=== PATIENT | male | born 1970 | race Caucasian/White ===

== ENCOUNTER → 2020-02-06 | Outpatient (CLI) | payer BC ==
[2020-02-06 16:46] LABS: Alcohol, Urine < 3.0 mg/dL (0-5); Amphetamine Screen, Urine NEGATIVE (NEGATIVE); Barbiturate Scree,Urine NEGATIVE (NEGATIVE); Benzodiazephine Screen, Urine NEGATIVE (NEGATIVE); Cannabinoid Screen, Urine POSITIVE (NEGATIVE); Cocaine Screen, Urine NEGATIVE (NEGATIVE); Opiate Scree,Urine NEGATIVE (NEGATIVE); Phencyclidine Screen, Urine NEGATIVE (NEGATIVE)
== END | disposition home or self-care (01) ==
LOC: LAB 14:35
PROVIDERS: ATTEND Psychiatry & Neurology Neurology
DX: G89.29 Other chronic pain (principal)
CPT/HCPCS: 80307

== ENCOUNTER 2020-04-21 06:13 | Day surgery (SDC) | payer BC ==
[2020-04-16 09:23] LABS: Urine WBC None Seen /hpf (0 - 3)
[2020-04-16 09:30] LABS: Basophils # (auto) 0 10 ^3/uL (0-0.2); Basophils % (auto) 0.4 % (0.0-2.0); Eosinophils # (auto) 0.2 10 ^3/uL (0-0.8); Eosinophils % (auto) 3.7 % (0.0-7.0); Hematocrit 50.5 % (41.0-53.0); Hemoglobin 16.9 g/dL (13.5-17.5); Lymphocytes # (auto) 2.1 10 ^3/uL (0.4-5.4); Lymphocytes % (auto) 32.6 % (10.0-50.0); Mean Corpuscular Hemoglobin 31.4 pg (28.0-32.0); Mean Corpuscular Hgb Conc. 33.5 g/dL (32.0-36.0); Mean Corpuscular Volume 93.6 fL (80.0-100.0); Monocytes # (auto) 0.5 10 ^3/uL (0-1.3); Monocytes % (auto) 7.8 % (0.0-12.0); Neutrophils # (auto) 3.6 10 ^3/uL (1.6-8.6); Neutrophils % (auto) 55.5 % (37.0-80.0); Nucleated Red Blood Cells % 0.1 %; Platelet Count (auto) 187 10^3/uL (140-450); Red Blood Cells 5.39 10^6/uL (4.5-5.90); Red Cell Distribution Width 13.8 % (11.8-14.3); White Blood Cell 6.5 10^3/uL (4.4-10.8)
[2020-04-16 09:33] LABS: Urine Bacteria NONE SEEN /hpf (None Seen); Urine Blood Negative /uL (Negative); Urine Specific Gravity 1.012 (1.001-1.035)
[2020-04-16 09:42] LABS: INR 1.11 (0.9-1.15); Partial Thromboplastin Time 28.6 sec (23.64-32.05)
[2020-04-16 09:45] LABS: Potassium 3.9 mmol/L (3.5-5.1)
[2020-04-16 09:58] LABS: Albumin 4.4 g/dL (3.4-5.0); BUN/Creatinine Ratio 15.3; Bilirubin, Total 1.3 mg/dL (0.2-1.0); Calcium 9.4 mg/dL (8.5-10.1)
[~2020-04-21] VITALS: Ht 177.8 cm; Wt 105.2 kg
[~2020-04-21 06:13] MED LIST: ALPR0.5T PO; LISI-646 PO; LISI10TA6 PO
[2020-04-21] MEDS ORDERED: ceFAZolin 1GM/50ML 50 ML IV ONE (07:15)
[2020-04-21] MEDS ORDERED: LIDOCAINE 1% (LOCAL ANESTH.) PF 5ml SDV ONE (07:19)
[2020-04-21] MEDS ORDERED: SUCCINYLCHOLINE CHLORIDE 20 MG/ML 10ML VIAL IV ONE (07:19)
[2020-04-21] MEDS ORDERED: MIDAZOLAM HCL 1MG/1ML-2 ML VIAL ONE (07:21)
[2020-04-21] MEDS ORDERED: METOCLOPRAMIDE HCL 5MG/ml INJ 2ml VIAL ONE (07:21)
[2020-04-21] MEDS ORDERED: BUPIVACAINE 0.25% INJ 50ML VIAL ONE (07:22)
[2020-04-21] MEDS ORDERED: ROCURONIUM 10MG/ML 10ML VIAL IV ONE (07:26)
[2020-04-21] MEDS ORDERED: PROPOFOL 10 MG/ML 20 ML IV ONE (07:26)
[2020-04-21] MEDS ORDERED: fentaNYL CITRATE 100 MCG/2 ML VL ONE (07:39)
[2020-04-21] MEDS ORDERED: ONDANSETRON HCL 4 MG/2 ML VIAL IV PRN (08:00)
[2020-04-21] MEDS ORDERED: HYDROmorphone HCL 2 MG/ML VL IV PRN (08:00)
[2020-04-21] MEDS ORDERED: NALOXONE HCL 0.4 MG/ML VIAL IV PRN (08:00)
[2020-04-21] MEDS ORDERED: POVIDONE IODINE 10 % TOPICAL OINT 30GM TOP ONE (08:13)
[2020-04-21] MEDS ORDERED: GLYCOPYRROLATE 0.2 MG/ML 1ML VIAL ONE (08:16)
[2020-04-21] MEDS ORDERED: NEOSTIGMINE 1 MG/ML INJ (10mg/10ML VIAL) ONE (08:16)
[2020-04-21] MEDS ORDERED: KETOROLAC TROMETH 30 MG/ML 1ML VIAL ONE (08:16)
[2020-04-21] MEDS: HYDROmorphone HCL 2 MG/ML VL IV PRN ×4 (08:34→09:15)
[2020-04-21 09:26] VITALS: BP 135/95
== END 2020-04-21 09:40 | disposition home or self-care (01) ==
LOC: SUR 06:13
PROVIDERS: ATTEND Surgery
DX: K42.9 Umbilical hernia without obstruction or gangrene (principal); I10 Essential (primary) hypertension; E11.9 Type 2 diabetes mellitus without complications; M19.90 Unspecified osteoarthritis, unspecified site; Z11.59 Encounter for screening for other viral diseases; Z98.890 Other specified postprocedural states
CPT/HCPCS: 36415; 49585; 80053; 81001; 85025; 85610; 85730; 88302; J0330; J0690; J1170; J1885; J2250; J2704; J2765; J3010; J3490; U0003

== ENCOUNTER → 2020-06-02 | Outpatient (CLI) | payer BC ==
[2020-06-02 08:42] LABS: Uric Acid 6.4 mg/dL (3.5-7.2)
== END | disposition home or self-care (01) ==
LOC: LAB 07:58
PROVIDERS: ATTEND Internal Medicine
DX: I10 Essential (primary) hypertension (principal); G43.009 Migraine without aura, not intractable, without status migrainosus; R73.9 Hyperglycemia, unspecified
CPT/HCPCS: 36415; 80061; 83036; 84443; 84550

== ENCOUNTER → 2020-06-15 | Outpatient (CLI) | payer OTHER ==
[~2020-06-15] MED LIST changes: +LISI-648 PO; -LISI10TA6 PO
== END | disposition home or self-care (01) ==
LOC: LAB 16:21
PROVIDERS: ATTEND Physician Assistant
DX: Z20.828 Contact with and (suspected) exposure to other viral communicable diseases (principal)

== ENCOUNTER → 2021-01-26 | Outpatient (CLI) | payer BC ==
[2021-01-26 11:38] LABS: Alcohol, Urine < 3.0 mg/dL (0-10); Amphetamine Screen, Urine NEGATIVE (NEGATIVE); Barbiturate Scree,Urine NEGATIVE (NEGATIVE); Benzodiazephine Screen, Urine POSITIVE (NEGATIVE); Cannabinoid Screen, Urine POSITIVE (NEGATIVE); Cocaine Screen, Urine NEGATIVE (NEGATIVE); Opiate Scree,Urine NEGATIVE (NEGATIVE); Phencyclidine Screen, Urine NEGATIVE (NEGATIVE)
== END | disposition home or self-care (01) ==
LOC: LAB 10:54
PROVIDERS: ATTEND Psychiatry & Neurology Neurology
DX: G89.4 Chronic pain syndrome (principal)
CPT/HCPCS: 80307

== ENCOUNTER → 2021-01-26 | Outpatient (CLI) | payer BC | END | disposition home or self-care (01) | LOC: XYW 10:42 | PROVIDERS: ATTEND Psychiatry & Neurology Neurology | DX: S46.811A Strain of other muscles, fascia and tendons at shoulder and upper arm level, right arm, initial encounter (principal); M65.811 Other synovitis and tenosynovitis, right shoulder; M19.011 Primary osteoarthritis, right shoulder; M85.611 Other cyst of bone, right shoulder; M25.511 Pain in right shoulder; X58.XXXA Exposure to other specified factors, initial encounter; Y93.89 Activity, other specified; Y92.89 Other specified places as the place of occurrence of the external cause; Y99.8 Other external cause status | CPT/HCPCS: 73221 ==

== ENCOUNTER → 2022-08-31 | Outpatient (CLI) | payer BC ==
[~2022-08-31] MED LIST changes: -LISI-646 PO; -LISI-648 PO; +LISI-716 PO; +LISI20TA28 PO
[2022-08-31 07:47] LABS: Basophils # (auto) 0.1 10 ^3/uL (0-0.2); Basophils % (auto) 1.4 % (0.0-2.0); Eosinophils # (auto) 0.4 10 ^3/uL (0-0.8); Eosinophils % (auto) 5.5 % (0.0-7.0); Hematocrit 53.1 % (41.0-53.0); Hemoglobin 17.3 g/dL (13.5-17.5); Lymphocytes # (auto) 1.6 10 ^3/uL (0.4-5.4); Lymphocytes % (auto) 22.7 % (10.0-50.0); Mean Corpuscular Hemoglobin 31.2 pg (28.0-32.0); Mean Corpuscular Hgb Conc. 32.6 g/dL (32.0-36.0); Mean Corpuscular Volume 95.9 fL (80.0-100.0); Monocytes # (auto) 0.6 10 ^3/uL (0-1.3); Monocytes % (auto) 8.9 % (0.0-12.0); Neutrophils # (auto) 4.4 10 ^3/uL (1.6-8.6); Neutrophils % (auto) 61.5 % (37.0-80.0); Nucleated Red Blood Cells % 0.1 %; Red Blood Cells 5.54 10^6/uL (4.5-5.90); White Blood Cell 7.1 10^3/uL (4.4-10.8)
[2022-08-31 07:55] LABS: Urine Bacteria NONE SEEN /hpf (None Seen); Urine Blood Negative /uL (Negative); Urine Specific Gravity 1.011 (1.001-1.035); Urine WBC <1 /hpf (0 - 3)
[2022-08-31 09:01] LABS: Potassium 4.2 mmol/L (3.5-5.1)
[2022-08-31 09:12] LABS: BUN/Creatinine Ratio 17.4; Bilirubin, Total 3.2 mg/dL (0.2-1.0); Calcium 9.7 mg/dL (8.5-10.1); Total Protein 7.5 g/dL (6.4-8.2)
== END | disposition home or self-care (01) ==
LOC: LAB 07:31
PROVIDERS: ATTEND Internal Medicine
DX: I10 Essential (primary) hypertension (principal); F17.200 Nicotine dependence, unspecified, uncomplicated; R73.9 Hyperglycemia, unspecified
CPT/HCPCS: 36415; 80053; 80061; 81001; 84153; 85025

== ENCOUNTER 2023-03-29 11:07 | Inpatient (IN) | payer BC ==
[~2023-03-29] VITALS: Ht 167.6 cm; Wt 101.5 kg
[2023-03-29] VITALS (13 sets, daily range): BP systolic 86–112; BP diastolic 54–78
[2023-03-29] MEDS ORDERED: FUROSEMIDE 40 MG/4 ML VIAL IV ONE ×2 (11:30→12:15)
[2023-03-29 11:49] LABS: Basophils # (auto) 0.1 10 ^3/uL (0-0.2); Basophils % (auto) 1.1 % (0.0-2.0); Eosinophils # (auto) 0.1 10 ^3/uL (0-0.8); Eosinophils % (auto) 1.4 % (0.0-7.0); Hematocrit 46.2 % (41.0-53.0); Hemoglobin 15.6 g/dL (13.5-17.5); Lymphocytes # (auto) 1.7 10 ^3/uL (0.4-5.4); Lymphocytes % (auto) 20.4 % (10.0-50.0); Mean Corpuscular Hgb Conc. 33.8 g/dL (32.0-36.0); Mean Corpuscular Volume 100.8 fL (80.0-100.0); Monocytes # (auto) 0.6 10 ^3/uL (0-1.3); Monocytes % (auto) 6.9 % (0.0-12.0); Neutrophils # (auto) 5.7 10 ^3/uL (1.6-8.6); Neutrophils % (auto) 70.2 % (37.0-80.0); Nucleated Red Blood Cells % 0.2 %; Red Blood Cells 4.58 10^6/uL (4.5-5.90); Red Cell Distribution Width 13.7 % (11.8-14.3); White Blood Cell 8.2 10^3/uL (4.4-10.8)
[2023-03-29] MEDS ORDERED: ADENOSINE 6 MG/2 ML INJ IV ONE (12:00)
[2023-03-29] MEDS ORDERED: LABETALOL HCL 5 MG/ML 4ML SYRINGE IV ONE (12:00)
[2023-03-29] MEDS ORDERED: MIDAZOLAM HCL 5 MG/ML-1ML VIAL ONE (12:07)
[2023-03-29] MEDS ORDERED: METOPROLOL SUCCINATE XL 50 MG TAB PO ONE ×2 (12:07→12:15)
[2023-03-29] MEDS ORDERED: MIDAZOLAM HCL 2MG/2ML 2ml VIAL (1mg/ml) IV ONE (12:15)
[2023-03-29] MEDS ORDERED: AMIODARONE HCL 150 MG in D5W 5% 100 ML IV ONE (12:15)
[2023-03-29] MEDS ORDERED: FUROSEMIDE 40 MG/4 ML VIAL ONE (12:16)
[2023-03-29] MEDS ORDERED: AMIODARONE 450mg/250ml AE 250 ML IV SCH ×2 (12:30→18:30)
[2023-03-29] MEDS ORDERED: LORazepam 2MG/ML-1ML VIAL IV ONE (12:45)
[2023-03-29] MEDS ORDERED: NITROGLYCERIN 0.4 MG SL TAB SL PRN (13:30)
[2023-03-29 14:44] LABS: INR 1.31 (0.9-1.15); Partial Thromboplastin Time 30.8 sec (24.6-33.4)
[2023-03-29] MEDS ORDERED: THIAMINE 100mg/ml INJ (200mg/2ml VIAL) IV ONE (14:45)
[2023-03-29] MEDS ORDERED: hydrALAZINE HCL 20 MG/ML VL IV PRN (15:00)
[2023-03-29] MEDS ORDERED: LIDOCAINE 2% JELLY 11ml (GLYDO) UR ONE (15:00)
[2023-03-29] MEDS ORDERED: LIDOCAINE 2% JELLY 11ml (GLYDO) ONE (15:08)
[2023-03-29 15:24] LABS: Albumin 3.3 g/dL (3.4-5.0); Amylase 36 U/L (25-115); Anion Gap 11 (5-15); Blood Urea Nitrogen 10 mg/dL (7-18); Calcium 8.8 mg/dL (8.5-10.1); Carbon Dioxide 22 mmol/L (21-32); Chloride 89 mmol/L (98-107); Glucose 115 mg/dL (74-106); Lipase 125 U/L (73-393); Magnesium 1.8 mg/dL (1.6-2.6); Potassium 4.1 mmol/L (3.5-5.1); Sodium 122 mmol/L (136-145)
[2023-03-29 15:26] LABS: GFR African American 101 mL/min; GFR Non-African American 83 mL/min
[2023-03-29 15:27] LABS: Alanine Aminotransferase 35 U/L (16-61); Alkaline Phosphatase 96 U/L (45-117); Aspartate Aminotransferase 39 U/L (15-37); Bilirubin, Total 2.4 mg/dL (0.2-1.0); Total Protein 6.9 g/dL (6.4-8.2)
[2023-03-29] MEDS ORDERED: TAMSULOSIN HYDROCHLORIDE 0.4 MG CAP PO ONE (15:45)
[2023-03-29] MEDS ORDERED: HYDROcodone-ACET 5/325MG TAB PO PRN (16:00)
[2023-03-29] MEDS ORDERED: ONDANSETRON HCL 4 MG/2 ML VIAL IV PRN (16:00)
[2023-03-29] MEDS: MORPHINE SULFATE INJ 2 MG/ml SYRG IV PRN (16:03)
[2023-03-29] MEDS: LORazepam 2MG/ML-1ML VIAL IV PRN ×2 (16:04→23:45)
[2023-03-29] MEDS ORDERED: NICOTINE 21MG/24 HR TOPICAL PATCH TD ONE (16:30)
[2023-03-29] MEDS: FUROSEMIDE INJECTION 100 MG in D5W 5% 100 ML IV SCH ×2 (16:56→19:30)
[2023-03-29] MEDS: SPIRONOLACTONE 25 MG TAB PO SCH (18:13)
[2023-03-29] MEDS: HYDROmorphone HCL 2 MG/ML VL/or syr IV PRN (18:23)
[2023-03-29] MEDS: SACUBITRIL-VALSARTAN 24mg/26mg TAB PO SCH (22:00)
[2023-03-29] MEDS: APIXABAN 5 MG TAB PO SCH (22:00)
[2023-03-29] MEDS ORDERED: POTASSIUM CHL 20 Meq TABLET PO SCH (22:00)
[2023-03-30] VITALS (49 sets, daily range): BP systolic 37–131; BP diastolic 22–89
[2023-03-30] MEDS: FUROSEMIDE INJECTION 100 MG in D5W 5% 100 ML IV SCH ×5 (01:50→19:49)
[2023-03-30] MEDS: HYDROmorphone HCL 2 MG/ML VL/or syr IV PRN ×4 (02:00→22:45)
[2023-03-30 03:39] LABS: Basophils # (auto) 0 10 ^3/uL (0-0.2); Eosinophils # (auto) 0 10 ^3/uL (0-0.8); Lymphocytes # (auto) 1.1 10 ^3/uL (0.4-5.4); Monocytes # (auto) 0.7 10 ^3/uL (0-1.3)
[2023-03-30 03:41] LABS: Basophils % (auto) 0.4 % (0.0-2.0); Eosinophils % (auto) 0.4 % (0.0-7.0); Hemoglobin 14.2 g/dL (13.5-17.5); Lymphocytes % (auto) 11.3 % (10.0-50.0); Mean Corpuscular Hemoglobin 35.3 pg (28.0-32.0); Mean Corpuscular Hgb Conc. 34.7 g/dL (32.0-36.0); Mean Corpuscular Volume 101.9 fL (80.0-100.0); Monocytes % (auto) 7.1 % (0.0-12.0); Neutrophils # (auto) 8.1 10 ^3/uL (1.6-8.6); Neutrophils % (auto) 80.8 % (37.0-80.0); Nucleated Red Blood Cells % 0.1 %; Red Blood Cells 4.02 10^6/uL (4.5-5.90); Red Cell Distribution Width 13.7 % (11.8-14.3); White Blood Cell 10.1 10^3/uL (4.4-10.8)
[2023-03-30 03:56] LABS: Albumin 3.6 g/dL (3.4-5.0); Calcium 8.6 mg/dL (8.5-10.1)
[2023-03-30 04:00] LABS: BUN/Creatinine Ratio 11.3 (10.0-20.0); Bilirubin, Total 2.5 mg/dL (0.2-1.0); Total Protein 6.4 g/dL (6.4-8.2)
[2023-03-30 04:17] LABS: Alcohol, Urine < 3.0 mg/dL (0-10); Amphetamine Screen, Urine NEGATIVE (NEGATIVE); Barbiturate Scree,Urine NEGATIVE (NEGATIVE); Benzodiazephine Screen, Urine POSITIVE (NEGATIVE); Cannabinoid Screen, Urine NEGATIVE (NEGATIVE); Cocaine Screen, Urine NEGATIVE (NEGATIVE); Phencyclidine Screen, Urine NEGATIVE (NEGATIVE)
[2023-03-30 04:25] LABS: Opiate Scree,Urine NEGATIVE (NEGATIVE)
[2023-03-30 04:33] LABS: Urine Bacteria NONE SEEN /hpf (None Seen); Urine Blood 3+ /uL (Negative); Urine Mucus FEW (None Seen); Urine Specific Gravity 1.012 (1.001-1.035); Urine WBC 470 /hpf (0 - 3); Urine WBC Clumps PRESENT /hpf (None Seen)
[2023-03-30] MEDS: SPIRONOLACTONE 25 MG TAB PO SCH (09:11)
[2023-03-30] MEDS: NICOTINE 21MG/24 HR TOPICAL PATCH TD SCH (10:00)
[2023-03-30] MEDS: SACUBITRIL-VALSARTAN 24mg/26mg TAB PO SCH (10:00)
[2023-03-30] MEDS ORDERED: METOPROLOL SUCCINATE XL 50 MG TAB PO SCH (10:00)
[2023-03-30] MEDS ORDERED: OPTISON 3ml Vial for INJ IV ONE (10:24)
[2023-03-30] MEDS: APIXABAN 5 MG TAB PO SCH ×2 (10:50→21:55)
[2023-03-30] MEDS: THIAMINE 100mg/ml INJ (200mg/2ml VIAL) IV SCH (10:51)
[2023-03-30] MEDS: LORazepam 2MG/ML-1ML VIAL IV PRN (11:20)
[2023-03-30] MEDS ORDERED: chlordiazePOXIDE HCL 25 MG CAP PO PRN (11:30)
[2023-03-30] MEDS ORDERED: PANTOPRAZOLE 40 MG/10 ML VIAL INJ IV ONE (11:30)
[2023-03-30] MEDS ORDERED: OXYBUTYNIN CHL 5 MG TAB PO ONE (11:30)
[2023-03-30] MEDS ORDERED: DOBUTamine 1000MCG/ML 250 ML IV SCH ×2 (12:00→18:30)
[2023-03-30] MEDS ORDERED: AMIODARONE HCL 200 MG TAB PO ONE (14:00)
[2023-03-30] MEDS: Ensure HIGH Protein Chocolate 8oz Bottle PO SCH ×2 (14:07→18:39)
[2023-03-30] MEDS: TAMSULOSIN HYDROCHLORIDE 0.4 MG CAP PO SCH (19:41)
[2023-03-30] MEDS: AMIODARONE HCL 200 MG TAB PO SCH (21:55)
[2023-03-30] MEDS: MAGNESIUM OXIDE 400 MG TAB PO SCH (21:56)
[2023-03-30] MEDS: PHENYLEPHRINE IV 250 ML IV SCH (22:58)
[2023-03-31] VITALS (81 sets, daily range): BP systolic 39–151; BP diastolic 20–92
[2023-03-31] MEDS: PHENYLEPHRINE IV 250 ML IV SCH ×2 (02:59→06:34)
[2023-03-31] MEDS: LORazepam 2MG/ML-1ML VIAL IV PRN ×2 (03:44→21:21)
[2023-03-31 03:54] LABS: Basophils # (auto) 0.1 10 ^3/uL (0-0.2); Hemoglobin 13.9 g/dL (13.5-17.5); Mean Corpuscular Hemoglobin 34.9 pg (28.0-32.0); Monocytes # (auto) 1.4 10 ^3/uL (0-1.3); Monocytes % (auto) 6.6 % (0.0-12.0); Nucleated Red Blood Cells % 0.1 %; Red Blood Cells 3.98 10^6/uL (4.5-5.90)
[2023-03-31 03:56] LABS: Basophils % (auto) 0.5 % (0.0-2.0); Eosinophils # (auto) 0 10 ^3/uL (0-0.8); Eosinophils % (auto) 0.2 % (0.0-7.0); Hematocrit 40.7 % (41.0-53.0); Lymphocytes # (auto) 1.5 10 ^3/uL (0.4-5.4); Lymphocytes % (auto) 7.4 % (10.0-50.0); Mean Corpuscular Hgb Conc. 34.2 g/dL (32.0-36.0); Mean Corpuscular Volume 102.1 fL (80.0-100.0); Neutrophils # (auto) 17.6 10 ^3/uL (1.6-8.6); Neutrophils % (auto) 85.3 % (37.0-80.0); Red Cell Distribution Width 13.7 % (11.8-14.3); White Blood Cell 20.6 10^3/uL (4.4-10.8)
[2023-03-31 04:06] LABS: Calcium 8.1 mg/dL (8.5-10.1); Potassium 4.2 mmol/L (3.5-5.1)
[2023-03-31 04:12] LABS: Albumin 3.6 g/dL (3.4-5.0); BUN/Creatinine Ratio 14.2 (10.0-20.0); Bilirubin, Total 2.4 mg/dL (0.2-1.0); Total Protein 6.6 g/dL (6.4-8.2)
[2023-03-31] MEDS: FUROSEMIDE INJECTION 100 MG in D5W 5% 100 ML IV SCH ×2 (06:19→16:45)
[2023-03-31] MEDS: SPIRONOLACTONE 25 MG TAB PO SCH (06:20)
[2023-03-31] MEDS: Ensure HIGH Protein Chocolate 8oz Bottle PO SCH ×2 (08:00→14:32)
[2023-03-31] MEDS ORDERED: LIDOCAINE 1% (LOCAL ANESTH.) PF 5ml SDV ID ONE (08:45)
[2023-03-31] MEDS: SODIUM CHLOR 0.9% PF (SALINE LOCK) 10ML VIAL/SYR IV SCH ×2 (09:56→21:07)
[2023-03-31] MEDS: NICOTINE 21MG/24 HR TOPICAL PATCH TD SCH (10:00)
[2023-03-31] MEDS ORDERED: NOREPINEPHRINE 8 MG/250ML KIT 250 ML IV ONE (10:12)
[2023-03-31] MEDS: HYDROmorphone HCL 2 MG/ML VL/or syr IV PRN ×2 (10:41→15:37)
[2023-03-31] MEDS: THIAMINE 100mg/ml INJ (200mg/2ml VIAL) IV SCH (10:44)
[2023-03-31] MEDS: PANTOPRAZOLE 40 MG/10 ML VIAL INJ IV SCH (10:44)
[2023-03-31] MEDS: APIXABAN 5 MG TAB PO SCH ×2 (10:45→21:07)
[2023-03-31] MEDS ORDERED: MEROPENEM 1GM IVPB 100 ML IV ONE (10:45)
[2023-03-31] MEDS: MAGNESIUM OXIDE 400 MG TAB PO SCH ×2 (10:45→21:07)
[2023-03-31] MEDS: AMIODARONE HCL 200 MG TAB PO SCH ×2 (10:46→21:47)
[2023-03-31] MEDS: NOREPINEPHRINE 8 MG/250ML KIT 250 ML IV SCH ×2 (11:04→20:09)
[2023-03-31] MEDS ORDERED: DIGOXIN (250MCG/ML) 2 ML AMPULE IV ONE ×2 (14:30→17:00)
[2023-03-31] MEDS ORDERED: SODIUM CHL 3% 500 ML IV ONE (14:30)
[2023-03-31] MEDS ORDERED: DOPamine 1600MCG/ML D5W 250 ML IV SCH ×2 (14:30→16:45)
[2023-03-31] MEDS ORDERED: FUROSEMIDE INJECTION 100 MG in D5W 5% 100 ML IV SCH (14:45)
[2023-03-31] MEDS ORDERED: metOLazone 5 MG TAB PO ONE (16:45)
[2023-03-31] MEDS ORDERED: DIGOXIN (250MCG/ML) 2 ML AMPULE ONE (16:48)
[2023-03-31] MEDS ORDERED: AMIODARONE 450mg/250ml AE 250 ML IV ONE (17:32)
[2023-03-31] MEDS ORDERED: AMIODARONE 450mg/250ml AE 250 ML IV SCH (17:45)
[2023-03-31] MEDS: ALBUMIN 25% 100 ML IV SCH ×2 (18:58→21:04)
[2023-03-31] MEDS: MEROPENEM 1GM IVPB 100 ML IV SCH (18:59)
[2023-03-31] MEDS: TAMSULOSIN HYDROCHLORIDE 0.4 MG CAP PO SCH (20:13)
[2023-03-31 20:25] LABS: BUN/Creatinine Ratio 24.4 (10.0-20.0); Calcium 8.8 mg/dL (8.5-10.1); Magnesium 1.6 mg/dL (1.6-2.6); Potassium 3.9 mmol/L (3.5-5.1)
[2023-03-31] MEDS ORDERED: POTASSIUM CHL 20MEQ/100ML 100 ML IV ONE (21:00)
[2023-03-31] MEDS ORDERED: MAGNESIUM SULFATE 1GM/100ML 100 ML IV ONE (21:00)
[2023-03-31] MEDS: ACETAMINOPHEN 325 MG TAB PO PRN (21:07)
[2023-03-31] MEDS ORDERED: AMIODARONE HCL 150 MG in D5W 5% 100 ML IV ONE (23:45)
[2023-03-31] MEDS ORDERED: AMIODARONE HCL (50 MG/ ML) 3 ML VIAL IV ONE (23:59)
[2023-04-01] VITALS (71 sets, daily range): BP systolic 82–138; BP diastolic 25–98
[2023-04-01 01:05] LABS: Basophils # (auto) 0 10 ^3/uL (0-0.2); Eosinophils # (auto) 0 10 ^3/uL (0-0.8); Lymphocytes # (auto) 0.8 10 ^3/uL (0.4-5.4); White Blood Cell 13.3 10^3/uL (4.4-10.8)
[2023-04-01 01:07] LABS: Basophils % (auto) 0.2 % (0.0-2.0); Eosinophils % (auto) 0.3 % (0.0-7.0); Hematocrit 38.9 % (41.0-53.0); Hemoglobin 13.1 g/dL (13.5-17.5); Lymphocytes % (auto) 6.4 % (10.0-50.0); Mean Corpuscular Hemoglobin 34.5 pg (28.0-32.0); Mean Corpuscular Hgb Conc. 33.7 g/dL (32.0-36.0); Mean Corpuscular Volume 102.4 fL (80.0-100.0); Monocytes # (auto) 0.9 10 ^3/uL (0-1.3); Monocytes % (auto) 6.6 % (0.0-12.0); Neutrophils # (auto) 11.5 10 ^3/uL (1.6-8.6); Neutrophils % (auto) 86.5 % (37.0-80.0); Red Cell Distribution Width 13.8 % (11.8-14.3)
[2023-04-01 01:21] LABS: BUN/Creatinine Ratio 29.1 (10.0-20.0); Calcium 8.7 mg/dL (8.5-10.1); Magnesium 1.6 mg/dL (1.6-2.6); Potassium 3.8 mmol/L (3.5-5.1)
[2023-04-01] MEDS: AMIODARONE 450mg/250ml AE 250 ML IV SCH ×4 (02:00→22:45)
[2023-04-01] MEDS ORDERED: MAGNESIUM SULFATE 1GM/100ML 100 ML IV ONE ×2 (02:00→02:16)
[2023-04-01] MEDS: MEROPENEM 1GM IVPB 100 ML IV SCH ×3 (02:18→18:23)
[2023-04-01] MEDS: LORazepam 2MG/ML-1ML VIAL IV PRN ×5 (03:06→20:39)
[2023-04-01] MEDS: FUROSEMIDE INJECTION 100 MG in D5W 5% 100 ML IV SCH (03:06)
[2023-04-01] MEDS: SPIRONOLACTONE 25 MG TAB PO SCH (06:05)
[2023-04-01] MEDS: HYDROmorphone HCL 2 MG/ML VL/or syr IV PRN ×3 (06:14→22:36)
[2023-04-01 08:43] LABS: BUN/Creatinine Ratio 27.3 (10.0-20.0); Calcium 8.6 mg/dL (8.5-10.1)
[2023-04-01 08:59] LABS: Potassium 2.9 mmol/L (3.5-5.1)
[2023-04-01] MEDS: PANTOPRAZOLE 40 MG/10 ML VIAL INJ IV SCH (09:43)
[2023-04-01] MEDS: ACETAMINOPHEN 325 MG TAB PO PRN ×2 (09:44→18:23)
[2023-04-01] MEDS: MAGNESIUM OXIDE 400 MG TAB PO SCH ×2 (09:44→22:27)
[2023-04-01] MEDS: THIAMINE 100mg/ml INJ (200mg/2ml VIAL) IV SCH (09:44)
[2023-04-01] MEDS: DIGOXIN 0.125 MG TAB PO SCH (09:45)
[2023-04-01] MEDS: AMIODARONE HCL 200 MG TAB PO SCH ×2 (09:45→22:28)
[2023-04-01] MEDS: APIXABAN 5 MG TAB PO SCH ×2 (09:46→22:27)
[2023-04-01] MEDS: NICOTINE 21MG/24 HR TOPICAL PATCH TD SCH (09:52)
[2023-04-01] MEDS: POTASSIUM CHL 20MEQ/100ML 100 ML IV SCH ×4 (09:53→18:20)
[2023-04-01] MEDS: Ensure HIGH Protein Chocolate 8oz Bottle PO SCH ×4 (11:09→18:23)
[2023-04-01] MEDS: SODIUM CHLOR 0.9% PF (SALINE LOCK) 10ML VIAL/SYR IV SCH ×2 (11:09→22:00)
[2023-04-01] MEDS ORDERED: FUROSEMIDE INJECTION 100 MG in D5W 5% 100 ML IV SCH ×2 (12:30→15:00)
[2023-04-01] MEDS ORDERED: FUROSEMIDE 100 MG/10ML VIAL IV SCH (12:30)
[2023-04-01 14:19] LABS: BUN/Creatinine Ratio 29.3 (10.0-20.0); Calcium 8.8 mg/dL (8.5-10.1); Potassium 3.4 mmol/L (3.5-5.1)
[2023-04-01] MEDS: TAMSULOSIN HYDROCHLORIDE 0.4 MG CAP PO SCH (18:20)
[2023-04-01] MEDS: MORPHINE SULFATE INJ 2 MG/ml SYRG IV PRN (22:00)
[2023-04-02] VITALS (65 sets, daily range): BP systolic 77–162; BP diastolic 33–123
[2023-04-02] MEDS: ACETAMINOPHEN 325 MG TAB PO PRN ×2 (00:25→07:35)
[2023-04-02] MEDS: LORazepam 2MG/ML-1ML VIAL IV PRN ×4 (01:24→19:58)
[2023-04-02] MEDS: MEROPENEM 1GM IVPB 100 ML IV SCH ×2 (02:24→09:23)
[2023-04-02] MEDS: HYDROmorphone HCL 2 MG/ML VL/or syr IV PRN ×4 (02:37→19:30)
[2023-04-02 04:05] LABS: Basophils # (auto) 0 10 ^3/uL (0-0.2); Basophils % (auto) 0.2 % (0.0-2.0); Eosinophils # (auto) 0 10 ^3/uL (0-0.8); Eosinophils % (auto) 0.2 % (0.0-7.0); Monocytes # (auto) 0.4 10 ^3/uL (0-1.3); Nucleated Red Blood Cells % 0.1 %
[2023-04-02 04:08] LABS: Hematocrit 37.8 % (41.0-53.0); Lymphocytes # (auto) 0.5 10 ^3/uL (0.4-5.4); Lymphocytes % (auto) 7.7 % (10.0-50.0); Mean Corpuscular Hemoglobin 34.8 pg (28.0-32.0); Mean Corpuscular Hgb Conc. 34.5 g/dL (32.0-36.0); Monocytes % (auto) 6.3 % (0.0-12.0); Neutrophils # (auto) 5.2 10 ^3/uL (1.6-8.6); Neutrophils % (auto) 85.6 % (37.0-80.0); Red Blood Cells 3.74 10^6/uL (4.5-5.90); Red Cell Distribution Width 13.4 % (11.8-14.3); White Blood Cell 6.1 10^3/uL (4.4-10.8)
[2023-04-02 04:23] LABS: Calcium 8.1 mg/dL (8.5-10.1)
[2023-04-02 04:27] LABS: BUN/Creatinine Ratio 28.6 (10.0-20.0)
[2023-04-02] MEDS: AMIODARONE 450mg/250ml AE 250 ML IV SCH ×3 (06:35→23:07)
[2023-04-02] MEDS: POTASSIUM CHL 20MEQ/100ML 100 ML IV SCH ×2 (06:38→07:36)
[2023-04-02] MEDS: SPIRONOLACTONE 25 MG TAB PO SCH (07:35)
[2023-04-02] MEDS: Ensure HIGH Protein Chocolate 8oz Bottle PO SCH ×3 (07:35→17:23)
[2023-04-02] MEDS: NICOTINE 21MG/24 HR TOPICAL PATCH TD SCH (09:21)
[2023-04-02] MEDS: SODIUM CHLOR 0.9% PF (SALINE LOCK) 10ML VIAL/SYR IV SCH ×2 (09:21→22:40)
[2023-04-02] MEDS: THIAMINE 100mg/ml INJ (200mg/2ml VIAL) IV SCH (09:21)
[2023-04-02] MEDS: PANTOPRAZOLE 40 MG/10 ML VIAL INJ IV SCH (09:21)
[2023-04-02] MEDS: MAGNESIUM OXIDE 400 MG TAB PO SCH ×2 (09:22→22:41)
[2023-04-02] MEDS: AMIODARONE HCL 200 MG TAB PO SCH ×2 (09:22→22:41)
[2023-04-02] MEDS: APIXABAN 5 MG TAB PO SCH ×2 (09:22→22:40)
[2023-04-02] MEDS: DIGOXIN 0.125 MG TAB PO SCH (09:22)
[2023-04-02] MEDS: OXYBUTYNIN CHL 5 MG TAB PO SCH ×2 (09:26→22:41)
[2023-04-02 13:41] LABS: Protein, Urine 18.4 mg/dL (0.0-11.9)
[2023-04-02] MEDS: TAMSULOSIN HYDROCHLORIDE 0.4 MG CAP PO SCH (17:23)
[2023-04-02] MEDS: METOPROLOL SUCCINATE XL 50 MG TAB PO SCH (22:40)
[2023-04-03] VITALS (68 sets, daily range): BP systolic 98–160; BP diastolic 52–117
[2023-04-03] MEDS: LORazepam 2MG/ML-1ML VIAL IV PRN ×2 (00:44→22:20)
[2023-04-03 04:24] LABS: Basophils # (auto) 0 10 ^3/uL (0-0.2); Eosinophils # (auto) 0 10 ^3/uL (0-0.8); Monocytes # (auto) 0.6 10 ^3/uL (0-1.3); Monocytes % (auto) 10.8 % (0.0-12.0); Red Blood Cells 3.81 10^6/uL (4.5-5.90); Red Cell Distribution Width 13.8 % (11.8-14.3); White Blood Cell 5.3 10^3/uL (4.4-10.8)
[2023-04-03 04:26] LABS: Basophils % (auto) 0.4 % (0.0-2.0); Eosinophils % (auto) 0.7 % (0.0-7.0); Hematocrit 38.4 % (41.0-53.0); Hemoglobin 13.1 g/dL (13.5-17.5); Lymphocytes # (auto) 0.6 10 ^3/uL (0.4-5.4); Lymphocytes % (auto) 12.1 % (10.0-50.0); Mean Corpuscular Hemoglobin 34.4 pg (28.0-32.0); Mean Corpuscular Hgb Conc. 34.1 g/dL (32.0-36.0); Mean Corpuscular Volume 100.8 fL (80.0-100.0); Neutrophils # (auto) 4.1 10 ^3/uL (1.6-8.6); Nucleated Red Blood Cells % 0.3 %
[2023-04-03 04:43] LABS: BUN/Creatinine Ratio 21.9 (10.0-20.0); Calcium 8.9 mg/dL (8.5-10.1); Magnesium 1.6 mg/dL (1.6-2.6); Phosphorus 2.3 mg/dL (2.5-4.90); Potassium 3.3 mmol/L (3.5-5.1)
[2023-04-03] MEDS: HYDROmorphone HCL 2 MG/ML VL/or syr IV PRN ×3 (05:18→19:36)
[2023-04-03] MEDS ORDERED: MAGNESIUM SULFATE 1GM/100ML 100 ML IV ONE (05:45)
[2023-04-03] MEDS: AMIODARONE 450mg/250ml AE 250 ML IV SCH (06:21)
[2023-04-03] MEDS: POTASSIUM CHL 20MEQ/100ML 100 ML IV SCH ×2 (06:38→08:26)
[2023-04-03] MEDS: NICOTINE 21MG/24 HR TOPICAL PATCH TD SCH (10:17)
[2023-04-03] MEDS: MAGNESIUM OXIDE 400 MG TAB PO SCH ×2 (10:17→20:58)
[2023-04-03] MEDS: OXYBUTYNIN CHL 5 MG TAB PO SCH ×2 (10:18→20:58)
[2023-04-03] MEDS: METOPROLOL SUCCINATE XL 50 MG TAB PO SCH ×2 (10:20→20:59)
[2023-04-03] MEDS: APIXABAN 5 MG TAB PO SCH ×2 (10:20→20:59)
[2023-04-03] MEDS: DIGOXIN 0.125 MG TAB PO SCH (10:20)
[2023-04-03] MEDS: AMIODARONE HCL 200 MG TAB PO SCH ×2 (10:21→20:59)
[2023-04-03] MEDS: SPIRONOLACTONE 25 MG TAB PO SCH (10:21)
[2023-04-03] MEDS: CEFTRIAXONE SODIUM 2 GM in D5W 5% 100 ML IV SCH (10:22)
[2023-04-03] MEDS: THIAMINE 100mg/ml INJ (200mg/2ml VIAL) IV SCH (10:22)
[2023-04-03] MEDS: PANTOPRAZOLE 40 MG/10 ML VIAL INJ IV SCH (10:22)
[2023-04-03] MEDS: SODIUM CHLOR 0.9% PF (SALINE LOCK) 10ML VIAL/SYR IV SCH ×2 (10:23→21:06)
[2023-04-03] MEDS: Ensure HIGH Protein Chocolate 8oz Bottle PO SCH ×3 (10:23→19:36)
[2023-04-03] MEDS: ACETAMINOPHEN 325 MG TAB PO PRN (10:38)
[2023-04-03] MEDS ORDERED: DEXTROSE (50%) 50ML SYRG IV PRN (11:15)
[2023-04-03] MEDS ORDERED: FUROSEMIDE 40 MG/4 ML VIAL IV ONE (11:15)
[2023-04-03] MEDS: ACCU-CHEK COMFORT CURVE STRIP VI SCH ×2 (12:15→18:04)
[2023-04-03] MEDS: InsuLIN REG 1unit/0.01ml Soln (100units/ml) SC SCH ×2 (12:22→18:00)
[2023-04-03] MEDS ORDERED: POTASSIUM PHOSPHATE 22 MEQ in SODIUM CHL 0.9% 100 ML IV ONE (13:45)
[2023-04-03] MEDS ORDERED: POTASSIUM EFFERVESENT TAB 25 MEQ GT ONE (13:45)
[2023-04-03] MEDS ORDERED: CARISOPRODOL 350 MG TAB PO ONE (14:30)
[2023-04-03] MEDS: TAMSULOSIN HYDROCHLORIDE 0.4 MG CAP PO SCH (19:36)
[2023-04-03 20:33] LABS: Urine Bacteria NONE SEEN /hpf (None Seen); Urine Blood 3+ /uL (Negative); Urine Specific Gravity 1.014 (1.001-1.035); Urine WBC 36 /hpf (0 - 3)
[2023-04-03] MEDS: CARISOPRODOL 350 MG TAB PO SCH (21:06)
[2023-04-04] VITALS (21 sets, daily range): BP systolic 109–134; BP diastolic 60–96
[2023-04-04] MEDS: ACCU-CHEK COMFORT CURVE STRIP VI SCH ×3 (00:01→12:12)
[2023-04-04 04:04] LABS: Basophils # (auto) 0 10 ^3/uL (0-0.2); Basophils % (auto) 0.4 % (0.0-2.0); Eosinophils # (auto) 0.1 10 ^3/uL (0-0.8); Hemoglobin 13.2 g/dL (13.5-17.5); Lymphocytes # (auto) 1.2 10 ^3/uL (0.4-5.4); Monocytes # (auto) 0.7 10 ^3/uL (0-1.3); Nucleated Red Blood Cells % 0.1 %
[2023-04-04 04:06] LABS: Eosinophils % (auto) 1.6 % (0.0-7.0); Hematocrit 38.4 % (41.0-53.0); Lymphocytes % (auto) 15.6 % (10.0-50.0); Mean Corpuscular Hemoglobin 34.7 pg (28.0-32.0); Mean Corpuscular Hgb Conc. 34.4 g/dL (32.0-36.0); Monocytes % (auto) 10.1 % (0.0-12.0); Neutrophils # (auto) 5.3 10 ^3/uL (1.6-8.6); Neutrophils % (auto) 72.3 % (37.0-80.0); Red Cell Distribution Width 13.6 % (11.8-14.3); White Blood Cell 7.4 10^3/uL (4.4-10.8)
[2023-04-04 04:18] LABS: Albumin 3.3 g/dL (3.4-5.0); Calcium 9.3 mg/dL (8.5-10.1); Magnesium 1.7 mg/dL (1.6-2.6); Potassium 3.7 mmol/L (3.5-5.1)
[2023-04-04 04:21] LABS: BUN/Creatinine Ratio 24.2 (10.0-20.0); Bilirubin, Total 1.9 mg/dL (0.2-1.0); Total Protein 6.4 g/dL (6.4-8.2)
[2023-04-04] MEDS: InsuLIN REG 1unit/0.01ml Soln (100units/ml) SC SCH ×3 (06:59→12:14)
[2023-04-04] MEDS: HYDROmorphone HCL 2 MG/ML VL/or syr IV PRN ×3 (07:50→20:37)
[2023-04-04] MEDS: Ensure HIGH Protein Chocolate 8oz Bottle PO SCH ×3 (09:45→18:52)
[2023-04-04] MEDS: PANTOPRAZOLE 40 MG/10 ML VIAL INJ IV SCH (09:46)
[2023-04-04] MEDS: OXYBUTYNIN CHL 5 MG TAB PO SCH ×2 (09:47→21:43)
[2023-04-04] MEDS: APIXABAN 5 MG TAB PO SCH ×2 (09:47→21:43)
[2023-04-04] MEDS: CARISOPRODOL 350 MG TAB PO SCH ×2 (09:48→21:43)
[2023-04-04] MEDS: AMIODARONE HCL 200 MG TAB PO SCH ×2 (09:48→21:43)
[2023-04-04] MEDS: MAGNESIUM OXIDE 400 MG TAB PO SCH ×2 (09:48→21:42)
[2023-04-04] MEDS: SPIRONOLACTONE 25 MG TAB PO SCH (09:48)
[2023-04-04] MEDS: POTASSIUM EFFERVESENT TAB 25 MEQ PO SCH (09:49)
[2023-04-04] MEDS: DIGOXIN 0.125 MG TAB PO SCH (09:49)
[2023-04-04] MEDS: NICOTINE 21MG/24 HR TOPICAL PATCH TD SCH (09:50)
[2023-04-04] MEDS: CEFTRIAXONE SODIUM 2 GM in D5W 5% 100 ML IV SCH (09:50)
[2023-04-04] MEDS: SODIUM CHLOR 0.9% PF (SALINE LOCK) 10ML VIAL/SYR IV SCH ×2 (09:51→21:43)
[2023-04-04] MEDS: THIAMINE 100mg/ml INJ (200mg/2ml VIAL) IV SCH (09:59)
[2023-04-04] MEDS ORDERED: FUROSEMIDE 40 MG/4 ML VIAL IV SCH (10:00)
[2023-04-04] MEDS: METOPROLOL SUCCINATE XL 50 MG TAB PO SCH ×2 (12:12→21:43)
[2023-04-04] MEDS: LORazepam 2MG/ML-1ML VIAL IV PRN ×2 (12:13→21:44)
[2023-04-04] MEDS ORDERED: acetaZOLAMIDE SODIUM 500 MG VL IV ONE (14:15)
[2023-04-04] MEDS: TAMSULOSIN HYDROCHLORIDE 0.4 MG CAP PO SCH (18:52)
[2023-04-04] MEDS: FUROSEMIDE 40 MG/4 ML VIAL IV SCH (21:42)
[2023-04-05] VITALS (18 sets, daily range): BP systolic 100–129; BP diastolic 50–84
[2023-04-05 04:22] LABS: Basophils # (auto) 0 10 ^3/uL (0-0.2); Eosinophils # (auto) 0.2 10 ^3/uL (0-0.8); Hemoglobin 13.8 g/dL (13.5-17.5); Lymphocytes # (auto) 1.6 10 ^3/uL (0.4-5.4); Monocytes # (auto) 0.8 10 ^3/uL (0-1.3)
[2023-04-05 04:25] LABS: Basophils % (auto) 0.6 % (0.0-2.0); Eosinophils % (auto) 3.6 % (0.0-7.0); Hematocrit 40.4 % (41.0-53.0); Lymphocytes % (auto) 26.2 % (10.0-50.0); Mean Corpuscular Hemoglobin 34.6 pg (28.0-32.0); Mean Corpuscular Hgb Conc. 34.2 g/dL (32.0-36.0); Mean Corpuscular Volume 101.1 fL (80.0-100.0); Monocytes % (auto) 13.6 % (0.0-12.0); Neutrophils # (auto) 3.5 10 ^3/uL (1.6-8.6); Nucleated Red Blood Cells % 0.2 %; Red Blood Cells 3.99 10^6/uL (4.5-5.90); Red Cell Distribution Width 13.8 % (11.8-14.3); White Blood Cell 6.2 10^3/uL (4.4-10.8)
[2023-04-05 04:42] LABS: Calcium 9.7 mg/dL (8.5-10.1)
[2023-04-05 04:46] LABS: BUN/Creatinine Ratio 23.1 (10.0-20.0)
[2023-04-05] MEDS ORDERED: POTASSIUM CHL 20MEQ/100ML 100 ML IV ONE ×3 (05:21→07:45)
[2023-04-05] MEDS: HYDROmorphone HCL 2 MG/ML VL/or syr IV PRN ×4 (09:26→23:00)
[2023-04-05] MEDS: AMIODARONE HCL 200 MG TAB PO SCH ×2 (09:54→22:34)
[2023-04-05] MEDS: CARISOPRODOL 350 MG TAB PO SCH ×2 (09:56→21:18)
[2023-04-05] MEDS: SPIRONOLACTONE 25 MG TAB PO SCH (09:56)
[2023-04-05] MEDS: DIGOXIN 0.125 MG TAB PO SCH (09:56)
[2023-04-05] MEDS: MAGNESIUM OXIDE 400 MG TAB PO SCH ×2 (09:56→22:35)
[2023-04-05] MEDS: OXYBUTYNIN CHL 5 MG TAB PO SCH ×2 (09:56→22:34)
[2023-04-05] MEDS: METOPROLOL SUCCINATE XL 50 MG TAB PO SCH ×2 (09:57→22:35)
[2023-04-05] MEDS: PANTOPRAZOLE 40 MG TAB PO SCH (09:57)
[2023-04-05] MEDS: APIXABAN 5 MG TAB PO SCH ×2 (09:58→22:35)
[2023-04-05] MEDS: POTASSIUM EFFERVESENT TAB 25 MEQ PO SCH (09:58)
[2023-04-05] MEDS: THIAMINE HCL 100 MG TAB PO SCH (09:59)
[2023-04-05] MEDS: FUROSEMIDE 40 MG/4 ML VIAL IV SCH ×2 (10:00→22:36)
[2023-04-05] MEDS ORDERED: acetaZOLAMIDE SODIUM 500 MG VL IV ONE (10:00)
[2023-04-05] MEDS ORDERED: POTASSIUM EFFERVESENT TAB 25 MEQ PO SCH (10:00)
[2023-04-05] MEDS: SODIUM CHLOR 0.9% PF (SALINE LOCK) 10ML VIAL/SYR IV SCH ×2 (10:01→22:35)
[2023-04-05] MEDS: CEFTRIAXONE SODIUM 2 GM in D5W 5% 100 ML IV SCH (10:20)
[2023-04-05] MEDS: Ensure HIGH Protein Chocolate 8oz Bottle PO SCH ×3 (10:21→17:26)
[2023-04-05] MEDS: NICOTINE 21MG/24 HR TOPICAL PATCH TD SCH (10:38)
[2023-04-05 12:10] LABS: Calcium 9.7 mg/dL (8.5-10.1); Potassium 4.6 mmol/L (3.5-5.1)
[2023-04-05] MEDS: TAMSULOSIN HYDROCHLORIDE 0.4 MG CAP PO SCH (18:02)
[2023-04-05] MEDS: LORazepam 2MG/ML-1ML VIAL IV PRN (18:54)
[2023-04-06] MEDS: LORazepam 2MG/ML-1ML VIAL IV PRN ×4 (01:00→22:36)
[2023-04-06 05:00] VITALS: BP_SYST 81; BP_SYST 93; BP_DIAS 50; BP_DIAS 53
[2023-04-06] MEDS: HYDROmorphone HCL 2 MG/ML VL/or syr IV PRN ×3 (06:20→19:46)
[2023-04-06 07:12] LABS: Calcium 9.7 mg/dL (8.5-10.1)
[2023-04-06 08:29] LABS: Potassium 3.5 mmol/L (3.5-5.1)
[2023-04-06] MEDS: OXYBUTYNIN CHL 5 MG TAB PO SCH ×2 (09:59→21:29)
[2023-04-06] MEDS: PANTOPRAZOLE 40 MG TAB PO SCH (09:59)
[2023-04-06] MEDS: THIAMINE HCL 100 MG TAB PO SCH (10:00)
[2023-04-06] MEDS: APIXABAN 5 MG TAB PO SCH ×2 (10:00→21:29)
[2023-04-06] MEDS: AMIODARONE HCL 200 MG TAB PO SCH ×2 (10:01→21:30)
[2023-04-06] MEDS: MAGNESIUM OXIDE 400 MG TAB PO SCH ×2 (10:01→21:29)
[2023-04-06] MEDS: METOPROLOL SUCCINATE XL 50 MG TAB PO SCH ×2 (10:01→21:31)
[2023-04-06] MEDS: CARISOPRODOL 350 MG TAB PO SCH ×2 (10:02→21:30)
[2023-04-06] MEDS: SPIRONOLACTONE 25 MG TAB PO SCH (10:02)
[2023-04-06] MEDS: POTASSIUM EFFERVESENT TAB 25 MEQ PO SCH (10:03)
[2023-04-06] MEDS: FUROSEMIDE 40 MG/4 ML VIAL IV SCH ×2 (10:04→21:39)
[2023-04-06] MEDS: NICOTINE 21MG/24 HR TOPICAL PATCH TD SCH (10:05)
[2023-04-06] MEDS: SODIUM CHLOR 0.9% PF (SALINE LOCK) 10ML VIAL/SYR IV SCH ×2 (10:06→21:29)
[2023-04-06] MEDS: Ensure HIGH Protein Chocolate 8oz Bottle PO SCH ×3 (10:06→18:00)
[2023-04-06] MEDS: CEFTRIAXONE SODIUM 2 GM in D5W 5% 100 ML IV SCH (10:11)
[2023-04-06 12:00] VITALS: BP 110/70
[2023-04-06 16:00] VITALS: BP 113/77
[2023-04-06] MEDS: TAMSULOSIN HYDROCHLORIDE 0.4 MG CAP PO SCH (19:38)
[2023-04-06 22:00] VITALS: BP 123/78
[2023-04-07 05:00] VITALS: BP 94/70
[2023-04-07 05:13] LABS: Hematocrit 42.7 % (41.0-53.0); Hemoglobin 14.4 g/dL (13.5-17.5); Mean Corpuscular Hemoglobin 33.6 pg (28.0-32.0); Mean Corpuscular Hgb Conc. 33.7 g/dL (32.0-36.0); Mean Corpuscular Volume 99.7 fL (80.0-100.0); Red Blood Cells 4.28 10^6/uL (4.5-5.90); Red Cell Distribution Width 13.7 % (11.8-14.3); White Blood Cell 3.6 10^3/uL (4.4-10.8)
[2023-04-07 05:21] LABS: Band Neutrophils % (manual) 0; Basophils % (manual) 0 (0.0-2.0); Blast Cells 0; Metamyelocytes % 0; Myelocytes % 0; Promyelocytes % 0; Reactive Lymphocytes 0
[2023-04-07 05:50] LABS: Potassium 3.6 mmol/L (3.5-5.1)
[2023-04-07 05:55] LABS: BUN/Creatinine Ratio 26.4 (10.0-20.0); Calcium 9.7 mg/dL (8.5-10.1)
[2023-04-07] MEDS: Ensure HIGH Protein Chocolate 8oz Bottle PO SCH ×3 (08:29→18:18)
[2023-04-07 09:00] VITALS: BP 139/90
[2023-04-07] MEDS: HYDROmorphone HCL 2 MG/ML VL/or syr IV PRN ×2 (09:03→19:07)
[2023-04-07] MEDS: FUROSEMIDE 40 MG/4 ML VIAL IV SCH ×2 (10:19→21:31)
[2023-04-07] MEDS: CEFTRIAXONE SODIUM 2 GM in D5W 5% 100 ML IV SCH (10:20)
[2023-04-07] MEDS: SODIUM CHLOR 0.9% PF (SALINE LOCK) 10ML VIAL/SYR IV SCH (10:20)
[2023-04-07] MEDS: CARISOPRODOL 350 MG TAB PO SCH ×2 (10:21→21:29)
[2023-04-07] MEDS: METOPROLOL SUCCINATE XL 50 MG TAB PO SCH ×2 (10:21→21:28)
[2023-04-07] MEDS: AMIODARONE HCL 200 MG TAB PO SCH ×2 (10:22→21:29)
[2023-04-07] MEDS: MAGNESIUM OXIDE 400 MG TAB PO SCH ×2 (10:22→21:24)
[2023-04-07] MEDS: POTASSIUM EFFERVESENT TAB 25 MEQ PO SCH (10:22)
[2023-04-07] MEDS: PANTOPRAZOLE 40 MG TAB PO SCH (10:22)
[2023-04-07] MEDS: THIAMINE HCL 100 MG TAB PO SCH (10:22)
[2023-04-07] MEDS: SPIRONOLACTONE 25 MG TAB PO SCH (10:22)
[2023-04-07] MEDS: APIXABAN 5 MG TAB PO SCH ×2 (10:22→21:29)
[2023-04-07] MEDS: NICOTINE 21MG/24 HR TOPICAL PATCH TD SCH (10:23)
[2023-04-07 10:51] LABS: Eosinophils % (manual) 9 (0-7); Lymphocytes % (manual) 41 (10.0-50.0); Monocytes % (manual) 17 (0-12)
[2023-04-07 13:00] VITALS: BP 112/73
[2023-04-07] MEDS: LORazepam 0.5 MG TAB PO PRN ×2 (14:12→21:31)
[2023-04-07] MEDS: TAMSULOSIN HYDROCHLORIDE 0.4 MG CAP PO SCH (18:45)
[2023-04-07 22:00] VITALS: BP 101/65
[2023-04-08] MEDS: SODIUM CHLOR 0.9% PF (SALINE LOCK) 10ML VIAL/SYR IV SCH ×3 (03:12→21:33)
[2023-04-08 05:00] VITALS: BP 112/73
[2023-04-08] MEDS: HYDROmorphone HCL 2 MG/ML VL/or syr IV PRN ×3 (06:26→20:16)
[2023-04-08 06:55] LABS: Albumin 3.9 g/dL (3.4-5.0); Calcium 9.7 mg/dL (8.5-10.1); Magnesium 2.3 mg/dL (1.6-2.6)
[2023-04-08 06:59] LABS: BUN/Creatinine Ratio 26.4 (10.0-20.0); Bilirubin, Total 1.4 mg/dL (0.2-1.0); Total Protein 7.4 g/dL (6.4-8.2)
[2023-04-08] MEDS: Ensure HIGH Protein Chocolate 8oz Bottle PO SCH ×3 (08:00→17:55)
[2023-04-08 09:00] VITALS: BP 103/66
[2023-04-08] MEDS: LORazepam 0.5 MG TAB PO PRN ×2 (09:17→17:47)
[2023-04-08] MEDS ORDERED: D5W 5% IV SCH (11:00)
[2023-04-08] MEDS ORDERED: CEFTRIAXONE SODIUM IV SCH (11:00)
[2023-04-08] MEDS: CARISOPRODOL 350 MG TAB PO SCH ×2 (11:06→21:20)
[2023-04-08] MEDS: MAGNESIUM OXIDE 400 MG TAB PO SCH ×2 (11:06→21:20)
[2023-04-08] MEDS: POTASSIUM EFFERVESENT TAB 25 MEQ PO SCH (11:06)
[2023-04-08] MEDS: METOPROLOL SUCCINATE XL 50 MG TAB PO SCH ×2 (11:07→21:20)
[2023-04-08] MEDS: AMIODARONE HCL 200 MG TAB PO SCH ×2 (11:07→21:33)
[2023-04-08] MEDS: APIXABAN 5 MG TAB PO SCH ×2 (11:07→21:20)
[2023-04-08] MEDS: SPIRONOLACTONE 25 MG TAB PO SCH (11:07)
[2023-04-08] MEDS: PANTOPRAZOLE 40 MG TAB PO SCH (11:07)
[2023-04-08] MEDS: THIAMINE HCL 100 MG TAB PO SCH (11:07)
[2023-04-08] MEDS: FUROSEMIDE 40 MG/4 ML VIAL IV SCH ×2 (11:08→21:22)
[2023-04-08] MEDS: NICOTINE 21MG/24 HR TOPICAL PATCH TD SCH (11:08)
[2023-04-08] MEDS ORDERED: cefTRIAXone 1GM/50ML D5W 50 ML IV SCH (12:00)
[2023-04-08 13:12] VITALS: BP 120/63
[2023-04-08] MEDS: cefTRIAXone 1GM/50ML D5W 50 ML IV SCH (13:18)
[2023-04-08 17:07] VITALS: BP 103/74
[2023-04-08] MEDS: TAMSULOSIN HYDROCHLORIDE 0.4 MG CAP PO SCH (17:43)
[2023-04-09] VITALS (7 sets, daily range): BP systolic 100–117; BP diastolic 44–87
[2023-04-09] MEDS: LORazepam 0.5 MG TAB PO PRN (06:41)
[2023-04-09] MEDS: Ensure HIGH Protein Chocolate 8oz Bottle PO SCH ×2 (08:00→14:01)
[2023-04-09] MEDS ORDERED: APIX5TAB PO (10:11)
[2023-04-09] MEDS ORDERED: FURO1TAB31 PO (10:11)
[2023-04-09] MEDS ORDERED: SPIR25TA PO (10:11)
[2023-04-09] MEDS ORDERED: POTA-220 PO (10:11)
[2023-04-09] MEDS ORDERED: LEVO500T31 PO (10:11)
[2023-04-09] MEDS ORDERED: MAGN241.4 PO (10:11)
[2023-04-09] MEDS ORDERED: TAM04C PO (10:11)
[2023-04-09] MEDS ORDERED: METO-6 PO (10:11)
[2023-04-09] MEDS ORDERED: AMIO200T43 PO (10:11)
[2023-04-09] MEDS: APIXABAN 5 MG TAB PO SCH (11:44)
[2023-04-09] MEDS: CARISOPRODOL 350 MG TAB PO SCH (11:45)
[2023-04-09] MEDS: THIAMINE HCL 100 MG TAB PO SCH (11:45)
[2023-04-09] MEDS: METOPROLOL SUCCINATE XL 50 MG TAB PO SCH (11:47)
[2023-04-09] MEDS: MAGNESIUM OXIDE 400 MG TAB PO SCH (11:47)
[2023-04-09] MEDS: PANTOPRAZOLE 40 MG TAB PO SCH (11:47)
[2023-04-09] MEDS: SPIRONOLACTONE 25 MG TAB PO SCH (11:48)
[2023-04-09] MEDS: AMIODARONE HCL 200 MG TAB PO SCH (11:48)
[2023-04-09] MEDS: POTASSIUM EFFERVESENT TAB 25 MEQ PO SCH (11:48)
[2023-04-09] MEDS: NICOTINE 21MG/24 HR TOPICAL PATCH TD SCH (11:49)
[2023-04-09] MEDS: FUROSEMIDE 40 MG/4 ML VIAL IV SCH (11:49)
[2023-04-09] MEDS: SODIUM CHLOR 0.9% PF (SALINE LOCK) 10ML VIAL/SYR IV SCH (11:50)
[2023-04-09] MEDS ORDERED: diphenhdrAMINE HCL 50 MG/1 ML VL IV ONE (12:15)
[2023-04-09] MEDS ORDERED: MIDAZOLAM HCL 2MG/2ML 2ml VIAL (1mg/ml) IV ONE ×3 (12:15→12:45)
[2023-04-09] MEDS ORDERED: fentaNYL CITRATE 100 MCG/2 ML VL IV ONE (12:15)
[2023-04-09] MEDS ORDERED: MIDAZOLAM HCL 2MG/2ML 2ml VIAL (1mg/ml) ONE (12:39)
[2023-04-09] MEDS: cefTRIAXone 1GM/50ML D5W 50 ML IV SCH (13:56)
== END 2023-04-09 16:11 | disposition home or self-care (01) | DRG 871 ==
LOC: EEVIPCON 11:07 → ER 11:07 → TELE 13:21 → ICU WEST 16:37 → TELE-CENTR 04-05 21:30
PROVIDERS: ADMIT Internal Medicine; ATTEND Internal Medicine
PROC: 05HA33Z Insertion of Infusion Device into Left Brachial Vein, Percutaneous Approach (ICD-10-PCS; 2023-03-29)
PROC: B54NZZA Ultrasonography of Left Upper Extremity Veins, Guidance (ICD-10-PCS; 2023-03-29)
PROC: 5A09357 Assistance with Respiratory Ventilation, Less than 24 Consecutive Hours, Continuous Positive Airway Pressure (ICD-10-PCS; 2023-03-30)
PROC: 5A09357 Assistance with Respiratory Ventilation, Less than 24 Consecutive Hours, Continuous Positive Airway Pressure (ICD-10-PCS; 2023-03-31)
PROC: 02HV33Z Insertion of Infusion Device into Superior Vena Cava, Percutaneous Approach (ICD-10-PCS; 2023-03-31)
PROC: B548ZZA Ultrasonography of Superior Vena Cava, Guidance (ICD-10-PCS; 2023-03-31)
PROC: 5A09357 Assistance with Respiratory Ventilation, Less than 24 Consecutive Hours, Continuous Positive Airway Pressure (ICD-10-PCS; 2023-04-02)
PROC: 5A2204Z Restoration of Cardiac Rhythm, Single (ICD-10-PCS; principal; 2023-04-09)
DX: A41.51 Sepsis due to Escherichia coli [E. coli] (principal); I50.43 Acute on chronic combined systolic (congestive) and diastolic (congestive) heart failure; N17.0 Acute kidney failure with tubular necrosis; J96.01 Acute respiratory failure with hypoxia; R65.21 Severe sepsis with septic shock; R18.8 Other ascites; E87.1 Hypo-osmolality and hyponatremia; N39.0 Urinary tract infection, site not specified; E87.3 Alkalosis; I13.0 Hypertensive heart and chronic kidney disease with heart failure and stage 1 through stage 4 chronic kidney disease, or unspecified chronic kidney disease; K74.60 Unspecified cirrhosis of liver; E66.01 Morbid (severe) obesity due to excess calories; J44.9 Chronic obstructive pulmonary disease, unspecified; D69.6 Thrombocytopenia, unspecified; Y90.9 Presence of alcohol in blood, level not specified; F10.10 Alcohol abuse, uncomplicated; F17.210 Nicotine dependence, cigarettes, uncomplicated; N18.9 Chronic kidney disease, unspecified; R79.89 Other specified abnormal findings of blood chemistry; I48.91 Unspecified atrial fibrillation; E87.6 Hypokalemia; N32.89 Other specified disorders of bladder; G47.30 Sleep apnea, unspecified; Z80.9 Family history of malignant neoplasm, unspecified; Z90.49 Acquired absence of other specified parts of digestive tract; Z79.01 Long term (current) use of anticoagulants; Z79.899 Other long term (current) drug therapy; Z68.36 Body mass index [BMI] 36.0-36.9, adult
CPT/HCPCS: 36415; 36569; 36600; 71045; 74176; 76705; 76775; 80048; 80053; 80162; 80307; 81001; 82150; 82570; 82805; 82962; 83036; 83690; 83735; 83880; 83935; 84100; 84156; 84300; 84484; 85007; 85025; 85027; 85379; 85610; 85730; 87040; 87081; 87086; 87088; 87186; 92960; 93005; 93306; 93886; 93970; 94660; 96365; 96366; 96375; 96376; 99152; C9113; G0378; J0153; J0696; J1815; J2185; J2250; J3480; J3490; J7060; P9047; Q9956

== ENCOUNTER → 2023-04-16 | Outpatient (CLI) | payer BC ==
[~2023-04-16] MED LIST changes: +AMIO200T43 PO; +APIX5TAB PO; +FURO1TAB31 PO; +LEVO500T31 PO; +MAGN241.4 PO; +METO-6 PO; +POTA-220 PO; +SPIR25TA PO; +TAM04C PO
[2023-04-16 08:09] LABS: Urine WBC None Seen /hpf (0 - 3)
[2023-04-16 08:27] LABS: Basophils # (auto) 0 10 ^3/uL (0-0.2); Basophils % (auto) 0.8 % (0.0-2.0); Eosinophils # (auto) 0.2 10 ^3/uL (0-0.8); Eosinophils % (auto) 3.6 % (0.0-7.0); Hematocrit 45.9 % (41.0-53.0); Hemoglobin 15.9 g/dL (13.5-17.5); Lymphocytes # (auto) 1.8 10 ^3/uL (0.4-5.4); Lymphocytes % (auto) 33.8 % (10.0-50.0); Mean Corpuscular Hemoglobin 34.3 pg (28.0-32.0); Mean Corpuscular Hgb Conc. 34.6 g/dL (32.0-36.0); Mean Corpuscular Volume 99.1 fL (80.0-100.0); Monocytes # (auto) 0.5 10 ^3/uL (0-1.3); Neutrophils # (auto) 2.8 10 ^3/uL (1.6-8.6); Neutrophils % (auto) 51.8 % (37.0-80.0); Nucleated Red Blood Cells % 0.2 %; Red Blood Cells 4.64 10^6/uL (4.5-5.90); Red Cell Distribution Width 13.8 % (11.8-14.3); White Blood Cell 5.4 10^3/uL (4.4-10.8)
[2023-04-16 08:41] LABS: INR 1.23 (0.9-1.15); Partial Thromboplastin Time 29.3 sec (24.6-33.4)
[2023-04-16 08:47] LABS: Urine Bacteria NONE SEEN /hpf (None Seen); Urine Blood Negative /uL (Negative); Urine Mucus FEW (None Seen); Urine Specific Gravity 1.022 (1.001-1.035)
[2023-04-16 18:33] LABS: Albumin 4.4 g/dL (3.4-5.0); Calcium 9.9 mg/dL (8.5-10.1); Potassium 4.2 mmol/L (3.5-5.1)
[2023-04-16 18:36] LABS: BUN/Creatinine Ratio 26.7 (10.0-20.0); Bilirubin, Total 1.4 mg/dL (0.2-1.0); Total Protein 7.8 g/dL (6.4-8.2)
== END | disposition home or self-care (01) ==
LOC: LAB 08:00
PROVIDERS: ATTEND Internal Medicine
DX: I50.21 Acute systolic (congestive) heart failure (principal); R73.03 Prediabetes; D72.829 Elevated white blood cell count, unspecified; F10.239 Alcohol dependence with withdrawal, unspecified
CPT/HCPCS: 36415; 80053; 80061; 81001; 85025; 85610; 85730

== ENCOUNTER → 2023-05-07 | Outpatient (CLI) | payer BC ==
[~2023-05-07] MED LIST changes: -LISI-716 PO; +LISI10TA34 PO; -LISI20TA28 PO; +LISI20TA56 PO; -TAM04C PO; +TAMS-35 PO
== END | disposition home or self-care (01) ==
LOC: Rad HDHVI 08:10
PROVIDERS: ATTEND Internal Medicine Cardiovascular Disease
DX: I34.0 Nonrheumatic mitral (valve) insufficiency (principal); R06.02 Shortness of breath; I11.9 Hypertensive heart disease without heart failure
CPT/HCPCS: 93306

== ENCOUNTER → 2023-06-28 | Outpatient (CLI) | payer BC ==
[2023-06-28 13:31] LABS: Urine Bacteria NONE SEEN /hpf (None Seen); Urine Blood Negative /uL (Negative); Urine Specific Gravity 1.016 (1.001-1.035); Urine WBC <1 /hpf (0 - 3)
== END | disposition home or self-care (01) ==
LOC: LAB 13:03
PROVIDERS: ATTEND Internal Medicine
DX: Z87.440 Personal history of urinary (tract) infections (principal)
CPT/HCPCS: 81001; 87086

== ENCOUNTER 2024-01-22 11:04 | Inpatient (IN) | payer BC ==
[~2024-01-22] VITALS: Ht 172.7 cm; Wt 155.0 kg
[2024-01-22 11:41] LABS: Eosinophils # (auto) 0.1 10 ^3/uL (0-0.8); Lymphocytes # (auto) 1.6 10 ^3/uL (0.4-5.4); Monocytes # (auto) 0.7 10 ^3/uL (0-1.3); Nucleated Red Blood Cells % 1.1 %; Red Cell Distribution Width 14.4 % (11.8-14.3)
[2024-01-22 11:43] LABS: Basophils # (auto) 0 10 ^3/uL (0-0.2); Basophils % (auto) 0.6 % (0.0-2.0); Eosinophils % (auto) 1.5 % (0.0-7.0); Hemoglobin 15.9 g/dL (13.5-17.5); Lymphocytes % (auto) 20.9 % (10.0-50.0); Mean Corpuscular Hemoglobin 34.7 pg (28.0-32.0); Mean Corpuscular Hgb Conc. 33.8 g/dL (32.0-36.0); Mean Corpuscular Volume 102.5 fL (80.0-100.0); Monocytes % (auto) 9.2 % (0.0-12.0); Neutrophils # (auto) 5.1 10 ^3/uL (1.6-8.6); Neutrophils % (auto) 67.8 % (37.0-80.0); Red Blood Cells 4.59 10^6/uL (4.5-5.90); White Blood Cell 7.5 10^3/uL (4.4-10.8)
[2024-01-22 11:54] LABS: Chloride 97 mmol/L (98-107); Potassium 4.3 mmol/L (3.5-5.1); Sodium 134 mmol/L (136-145)
[2024-01-22 11:55] LABS: Anion Gap 4 (5-15); Calcium 9.1 mg/dL (8.7-10.4); Carbon Dioxide 33 mmol/L (20-30)
[2024-01-22 11:56] LABS: INR 1.49 (0.9-1.15); Partial Thromboplastin Time 32.5 SEC (24.5-34.5); Prothrombin Time 15.2 sec (9.3-11.8)
[2024-01-22 12:00] LABS: BUN/Creatinine Ratio 17.9 (10.0-20.0); Blood Urea Nitrogen 14 mg/dL (9-23); Glucose 127 mg/dL (74-106); Magnesium 1.6 mg/dL (1.6-2.6)
[2024-01-22] MEDS: FUROSEMIDE 40 MG/4 ML VIAL IV ONE (12:49)
[2024-01-22] MEDS: LORazepam 2MG/ML-1ML VIAL IV ONE (12:49)
[2024-01-22 13:19] VITALS: RESP 15; O2SAT 93
[2024-01-22] MEDS ORDERED: ALPR0.5T8 PO (13:42)
[2024-01-22] MEDS ORDERED: DOCUSATE SOD 100 MG CAP PO PRN (13:45)
[2024-01-22] MEDS ORDERED: NITROGLYCERIN 0.4 MG SL TAB SL PRN (13:45)
[2024-01-22] MEDS ORDERED: HYDROcodone-ACET 5/325MG TAB PO PRN (13:45)
[2024-01-22] MEDS ORDERED: ONDANSETRON HCL 4 MG/2 ML VIAL IV PRN (13:45)
[2024-01-22] MEDS ORDERED: MORPHINE SULFATE INJ 2 MG/ml SYRG IV PRN (13:45)
[2024-01-22 14:00] LABS: Blood Alcohol 3.1 mg/dL (<10)
[2024-01-22] MEDS: THIAMINE HCL 100 MG TAB PO ONE (14:00)
[2024-01-22] MEDS: MULTIPLE VITAMIN TAB PO ONE (14:00)
[2024-01-22] MEDS: ALPRAZolam 0.5 MG TAB PO SCH (14:00)
[2024-01-22] MEDS: FOLIC ACID 1 MG TAB PO ONE (14:00)
[2024-01-22 15:39] VITALS: BP 136/92; PULSE 85; RESP 16; TEMP 97.8; O2SAT 93
[2024-01-22 17:39] VITALS: BP 122/89; PULSE 81; RESP 20; TEMP 98; O2SAT 93
[2024-01-22] MEDS: FUROSEMIDE 40 MG/4 ML VIAL IV SCH (17:53)
[2024-01-22 18:00] VITALS: O2SAT 93
[2024-01-22] MEDS: LORazepam 0.5 MG TAB PO PRN (18:57)
[2024-01-22] MEDS ORDERED: TEMA30CA PO (18:59)
[2024-01-22 20:00] VITALS: PULSE 89; RESP 20
[2024-01-22] MEDS: METOPROLOL SUCCINATE XL 50 MG TAB PO SCH (21:16)
[2024-01-22 22:00] VITALS: BP 121/88; PULSE 90; RESP 20; TEMP 97.4; O2SAT 93
[2024-01-22] MEDS: APIXABAN 5 MG TAB PO SCH (22:00)
[2024-01-22] MEDS ORDERED: METOPROLOL SUCCINATE XL 50 MG TAB PO SCH (22:00)
[2024-01-22] MEDS: POTASSIUM CHL 20 Meq TABLET PO SCH (22:15)
[2024-01-22] MEDS: MAGNESIUM OXIDE 400 MG TAB PO SCH (22:15)
[2024-01-22] MEDS: SACUBITRIL-VALSARTAN 24mg/26mg TAB PO SCH (22:20)
[2024-01-22] MEDS: TEMAZEPAM 15 MG CAP PO ONE (22:21)
[2024-01-23] VITALS (14 sets, daily range): BP systolic 101–129; BP diastolic 63–97; PULSE 72–93; RESP 12–24; TEMP 97.5–98.9; O2SAT 91–99
[2024-01-23] MEDS: ACETAMINOPHEN 325 MG TAB PO PRN (05:44)
[2024-01-23 07:52] LABS: Basophils # (auto) 0 10 ^3/uL (0-0.2); Basophils % (auto) 0.5 % (0.0-2.0); Eosinophils # (auto) 0.1 10 ^3/uL (0-0.8); Hemoglobin 15.9 g/dL (13.5-17.5); Monocytes # (auto) 0.6 10 ^3/uL (0-1.3); White Blood Cell 6.5 10^3/uL (4.4-10.8)
[2024-01-23 07:54] LABS: Eosinophils % (auto) 2.1 % (0.0-7.0); Hematocrit 48.3 % (41.0-53.0); Lymphocytes # (auto) 1.3 10 ^3/uL (0.4-5.4); Lymphocytes % (auto) 20.3 % (10.0-50.0); Mean Corpuscular Hemoglobin 33.8 pg (28.0-32.0); Mean Corpuscular Hgb Conc. 32.9 g/dL (32.0-36.0); Mean Corpuscular Volume 102.8 fL (80.0-100.0); Monocytes % (auto) 9.9 % (0.0-12.0); Neutrophils # (auto) 4.4 10 ^3/uL (1.6-8.6); Neutrophils % (auto) 67.2 % (37.0-80.0); Nucleated Red Blood Cells % 0.5 %; Red Cell Distribution Width 14.3 % (11.8-14.3)
[2024-01-23 08:16] LABS: Alanine Aminotransferase 44 U/L (7-40); Albumin 4.1 g/dL (3.2-4.8); Alkaline Phosphatase 90 U/L (46-116); Anion Gap 2 (5-15); Aspartate Aminotransferase 27 U/L (13-40); BUN/Creatinine Ratio 14.5 (10.0-20.0); Bilirubin, Total 1.2 mg/dL (0.2-1.0); Blood Urea Nitrogen 10 mg/dL (9-23); Calcium 9.2 mg/dL (8.7-10.4); Carbon Dioxide 36 mmol/L (20-30); Chloride 98 mmol/L (98-107); Glucose 140 mg/dL (74-106); Potassium 4.3 mmol/L (3.5-5.1); Sodium 136 mmol/L (136-145); Total Protein 6.7 g/dL (5.7-8.2)
[2024-01-23] MEDS: LEVALBUTEROL HCL 1.25 MG/3 ML NEB NEB PRN (09:20)
[2024-01-23] MEDS: IPRATROPIUM BROM 0.5 MG/2.5ML INH SOL NEB PRN (09:20)
[2024-01-23] MEDS: PANTOPRAZOLE 40 MG TAB PO SCH (10:06)
[2024-01-23] MEDS: FOLIC ACID 1 MG TAB PO SCH (10:07)
[2024-01-23] MEDS: SPIRONOLACTONE 25 MG TAB PO SCH (10:09)
[2024-01-23] MEDS: EMPAGLIFLOZIN 10 MG TAB PO SCH (10:09)
[2024-01-23] MEDS: MULTIPLE VITAMIN TAB PO SCH (10:09)
[2024-01-23] MEDS: THIAMINE HCL 100 MG TAB PO SCH (10:10)
[2024-01-23] MEDS ORDERED: HEPARIN SODIUM (PORCINE) 5000 UNITS/ML 1ML VIAL ONE (16:03)
[2024-01-23] MEDS ORDERED: ANGIOMAX 250 MG VIAL IV ONE (16:03)
[2024-01-23] MEDS ORDERED: MIDAZOLAM HCL 2MG/2ML 2ml VIAL (1mg/ml) ONE (16:03)
[2024-01-23] MEDS ORDERED: VERAPAMIL 2.5MG/ML INJ 2ML VIAL IV ONE (16:03)
[2024-01-23] MEDS ORDERED: fentaNYL CITRATE 100 MCG/2 ML VL ONE (16:03)
[2024-01-23] MEDS ORDERED: SODIUM CHL 0.9% 0 ML ONE (16:04)
[2024-01-23] MEDS ORDERED: LIDOCAINE 2%HCL (LOCAL ANESTH.) INJ 20ML MDV ONE (16:13)
[2024-01-23] MEDS ORDERED: IODIXANOL 320MG/ML 100ML BTL IV ONE (16:27)
[2024-01-23] MEDS: TEMAZEPAM 15 MG CAP PO ONE (23:04)
[2024-01-24] VITALS (10 sets, daily range): BP systolic 102–129; BP diastolic 66–96; PULSE 84–108; RESP 20–24; TEMP 97–98.5; O2SAT 91–97
[2024-01-24 07:10] LABS: Chloride 100 mmol/L (98-107); Potassium 4.3 mmol/L (3.5-5.1); Sodium 142 mmol/L (136-145)
[2024-01-24 07:11] LABS: Anion Gap 3 (5-15); Calcium 9.4 mg/dL (8.7-10.4); Carbon Dioxide 39 mmol/L (20-30)
[2024-01-24 07:16] LABS: BUN/Creatinine Ratio 14.6 (10.0-20.0); Blood Urea Nitrogen 14 mg/dL (9-23); Glucose 129 mg/dL (74-106)
[2024-01-24] MEDS: METOPROLOL SUCCINATE XL 50 MG TAB PO SCH (10:15)
[2024-01-24 12:47] LABS: Urine Bacteria NONE SEEN /hpf (None Seen); Urine Blood Negative /uL (Negative); Urine Clarity Clear (Clear); Urine Color Yellow (Yellow); Urine Protein, UAD Negative (Negative); Urine Specific Gravity 1.027 (1.001-1.035); Urine WBC <1 /hpf (0 - 3)
[2024-01-24] MEDS ORDERED: TIRZ7.5I SC (15:36)
[2024-01-24] MEDS: TEMAZEPAM 15 MG CAP PO PRN (22:31)
[2024-01-25] VITALS (10 sets, daily range): BP systolic 114–133; BP diastolic 63–79; PULSE 68–99; RESP 18–20; TEMP 97.6–98.8; O2SAT 90–95
[2024-01-25 05:31] LABS: Anion Gap 4 (5-15); Carbon Dioxide 35 mmol/L (20-30); Chloride 103 mmol/L (98-107); Potassium 4.2 mmol/L (3.5-5.1); Sodium 142 mmol/L (136-145)
[2024-01-25 05:32] LABS: Calcium 9.4 mg/dL (8.7-10.4)
[2024-01-25 05:37] LABS: BUN/Creatinine Ratio 18.2 (10.0-20.0); Blood Urea Nitrogen 14 mg/dL (9-23); Glucose 114 mg/dL (74-106)
[2024-01-25 18:01] LABS: Base Excess 7.1 mmol/L (-2.0-2.0)
[2024-01-26 05:00] VITALS: BP 117/74; PULSE 96; RESP 18; TEMP 98.5; O2SAT 91
[2024-01-26 07:12] LABS: Chloride 102 mmol/L (98-107); Potassium 4.6 mmol/L (3.5-5.1); Sodium 141 mmol/L (136-145)
[2024-01-26 07:13] LABS: Anion Gap 5 (5-15); Carbon Dioxide 34 mmol/L (20-30)
[2024-01-26 07:14] LABS: Calcium 9.2 mg/dL (8.7-10.4)
[2024-01-26 07:18] LABS: Glucose 129 mg/dL (74-106)
[2024-01-26 07:19] LABS: BUN/Creatinine Ratio 17.4 (10.0-20.0); Blood Urea Nitrogen 16 mg/dL (9-23)
[2024-01-26 08:00] VITALS: PULSE 88; RESP 18; O2SAT 92
[2024-01-26 08:03] LABS: Triglycerides 63 mg/dL (< 150)
[2024-01-26 08:05] LABS: Cholesterol 153 mg/dL (< 200); HDL Cholesterol 48 mg/dL (40-59)
[2024-01-26 09:00] VITALS: BP 117/79; PULSE 99; RESP 18; TEMP 97.8; O2SAT 91
[2024-01-26] MEDS ORDERED: FURO1TAB31 PO (09:26)
[2024-01-26] MEDS ORDERED: SACU1TAB PO (09:26)
[2024-01-26] MEDS ORDERED: EMPA1TAB PO (09:26)
[2024-01-26 09:40] LABS: LDL Cholesterol 94 mg/dL (< 100)
[2024-01-26 10:00] VITALS: O2SAT 93
== END 2024-01-26 11:55 | disposition home or self-care (01) | DRG 286 ==
LOC: EEVIPCON 11:04 → ER 11:04 → TELE 13:39 → TELE-CENTR 17:30
PROVIDERS: ADMIT Nurse Practitioner Family; ATTEND Internal Medicine Geriatric Medicine
PROC: 4A023N8 Measurement of Cardiac Sampling and Pressure, Bilateral, Percutaneous Approach (ICD-10-PCS; principal; 2024-01-23)
PROC: B211YZZ Fluoroscopy of Multiple Coronary Arteries using Other Contrast (ICD-10-PCS; 2024-01-23)
PROC: B216YZZ Fluoroscopy of Right and Left Heart using Other Contrast (ICD-10-PCS; 2024-01-23)
DX: I11.0 Hypertensive heart disease with heart failure (principal); I50.43 Acute on chronic combined systolic (congestive) and diastolic (congestive) heart failure; J96.21 Acute and chronic respiratory failure with hypoxia; Z68.43 Body mass index [BMI] 50.0-59.9, adult; E66.01 Morbid (severe) obesity due to excess calories; F10.10 Alcohol abuse, uncomplicated; I48.91 Unspecified atrial fibrillation; K70.9 Alcoholic liver disease, unspecified; G47.33 Obstructive sleep apnea (adult) (pediatric); J44.9 Chronic obstructive pulmonary disease, unspecified; K74.60 Unspecified cirrhosis of liver; Z79.01 Long term (current) use of anticoagulants; Z79.899 Other long term (current) drug therapy; Z91.119 Patient's noncompliance with dietary regimen due to unspecified reason
CPT/HCPCS: 36415; 36600; 70450; 71045; 71250; 76705; 80048; 80053; 80061; 80320; 81001; 82140; 82805; 83036; 83735; 83880; 84075; 84443; 84450; 84460; 84484; 85025; 85610; 85730; 93005; 93306; 94640; 96374; 96375; 99152; 99291; G0378; J2250; Q9967

== ENCOUNTER → 2024-02-11 | Outpatient (CLI) | payer BC ==
[~2024-02-11] MED LIST changes: -ALPR0.5T PO; +ALPR0.5T8 PO; +EMPA1TAB PO; -LEVO500T31 PO; -LISI10TA34 PO; -LISI20TA56 PO; +SACU1TAB PO; +TEMA30CA PO; +TIRZ7.5I SC
[2024-02-11 09:01] LABS: Alanine Aminotransferase 41 U/L (7-40); Albumin 4.3 g/dL (3.2-4.8); Alkaline Phosphatase 87 U/L (46-116); Anion Gap 6 (5-15); Aspartate Aminotransferase 38 U/L (13-40); BUN/Creatinine Ratio 12.9 (10.0-20.0); Bilirubin, Total 1.1 mg/dL (0.2-1.0); Blood Urea Nitrogen 11 mg/dL (9-23); Calcium 10.1 mg/dL (8.5-10.1); Carbon Dioxide 29 mmol/L (20-30); Chloride 102 mmol/L (98-107); Glucose 98 mg/dL (74-106); Potassium 4.2 mmol/L (3.5-5.1); Sodium 137 mmol/L (136-145)
== END | disposition home or self-care (01) ==
LOC: LAB 07:45
PROVIDERS: ATTEND Internal Medicine
DX: I50.9 Heart failure, unspecified (principal)
CPT/HCPCS: 36415; 80053; 83880

== ENCOUNTER 2024-05-26 07:09 | Inpatient (IN) | payer BC ==
[2024-05-23 11:19] LABS: Urine Bacteria None Seen /hpf (None Seen)
[2024-05-23 11:30] LABS: Basophils # (auto) 0 10 ^3/uL (0-0.2); Basophils % (auto) 0.5 % (0.0-2.0); Eosinophils # (auto) 0.2 10 ^3/uL (0-0.8); Eosinophils % (auto) 2.9 % (0.0-7.0); Hematocrit 51.2 % (41.0-53.0); Hemoglobin 17.3 g/dL (13.5-17.5); Lymphocytes # (auto) 1.3 10 ^3/uL (0.4-5.4); Mean Corpuscular Hemoglobin 33.4 pg (28.0-32.0); Mean Corpuscular Hgb Conc. 33.7 g/dL (32.0-36.0); Mean Corpuscular Volume 99.1 fL (80.0-100.0); Monocytes # (auto) 0.6 10 ^3/uL (0-1.3); Monocytes % (auto) 10.4 % (0.0-12.0); Neutrophils # (auto) 3.8 10 ^3/uL (1.6-8.6); Neutrophils % (auto) 64.2 % (37.0-80.0); Nucleated Red Blood Cells % 0.1 %; Red Blood Cells 5.16 10^6/uL (4.5-5.90); Red Cell Distribution Width 15.7 % (11.8-14.3); White Blood Cell 5.9 10^3/uL (4.4-10.8)
[2024-05-23 11:44] LABS: INR 1.18 (0.9-1.15); Partial Thromboplastin Time 28.3 SEC (24.5-34.5); Prothrombin Time 12.4 sec (9.3-11.8)
[2024-05-23 12:04] LABS: Alanine Aminotransferase 43 U/L (7-40); Albumin 4.7 g/dL (3.2-4.8); Alkaline Phosphatase 91 U/L (46-116); Anion Gap 8 (5-15); Aspartate Aminotransferase 29 U/L (13-40); BUN/Creatinine Ratio 14.5 (10.0-20.0); Bilirubin, Total 1.8 mg/dL (0.2-1.0); Blood Urea Nitrogen 12 mg/dL (9-23); Calcium 10.2 mg/dL (8.5-10.1); Carbon Dioxide 26 mmol/L (20-30); Chloride 102 mmol/L (98-107); Glucose 105 mg/dL (74-106); Potassium 4.1 mmol/L (3.5-5.1); Sodium 136 mmol/L (136-145); Total Protein 7.4 g/dL (5.7-8.2)
[2024-05-23 12:24] LABS: Urine Blood Negative /uL (Negative); Urine Clarity Clear (Clear); Urine Color Yellow (Yellow); Urine Protein, UAD Negative (Negative); Urine Specific Gravity 1.031 (1.001-1.035); Urine Urobilinogen Normal (Negative); Urine WBC <1 /hpf (0 - 3)
[2024-05-26] VITALS (11 sets, daily range): BP systolic 112–147; BP diastolic 70–102; PULSE 93–126; RESP 15–19; TEMP 98.1–98.6; O2SAT 84–97
[~2024-05-26] VITALS: Ht 172.7 cm; Wt 159.0 kg
[~2024-05-26 07:09] MED LIST changes: -ALPR0.5T8 PO; +ALPR1TAB7 PO; -AMIO200T43 PO; -METO-6 PO; -SPIR25TA PO; -TAMS-35 PO; -TEMA30CA PO; +TEMA30CA5 PO; -TIRZ7.5I SC
[2024-05-26] MEDS: CELECOXIB 100 MG CAP PO ONE (07:45)
[2024-05-26] MEDS: CEFEPIME 1GM/ 50ML 50 ML IV ONE (07:45)
[2024-05-26] MEDS: PREGABALIN CAPSULE 75 MG CAP PO ONE (07:45)
[2024-05-26] MEDS: ceFAZolin 2 GM/D5W50ml 50 ML IV ONE ×2 (07:45→07:50)
[2024-05-26] MEDS: ACETAMINOPHEN IV 1000 MG/100ML (10MG/ML) IV ONE (08:05)
[2024-05-26] MEDS ORDERED: fentaNYL CITRATE 100 MCG/2 ML VL ONE (08:17)
[2024-05-26] MEDS ORDERED: ePHEDrine SULFATE 50 MG/ML AMP ONE (08:17)
[2024-05-26] MEDS ORDERED: KETAMINE 50mg/ML 1ml syringe ONE ×2 (08:17→10:30)
[2024-05-26] MEDS ORDERED: ONDANSETRON HCL 4 MG/2 ML VIAL ONE (08:17)
[2024-05-26] MEDS ORDERED: GLYCOPYRROLATE 0.2 MG/ML 1ML VIAL ONE (08:17)
[2024-05-26] MEDS ORDERED: PROPOFOL 10 MG/ML 20 ML IV ONE (08:17)
[2024-05-26] MEDS ORDERED: MIDAZOLAM HCL 2MG/2ML 2ml VIAL (1mg/ml) ONE ×2 (08:17→10:00)
[2024-05-26] MEDS: TRANEXAMIC ACID 20 ML ONE (09:33)
[2024-05-26] MEDS ORDERED: DEXTROSE (50%) 50ML SYRG IV PRN (10:15)
[2024-05-26] MEDS ORDERED: ALPRAZOLAM 1 MG PO SCH (10:15)
[2024-05-26] MEDS ORDERED: NITROGLYCERIN 0.4 MG SL TAB SL PRN (10:15)
[2024-05-26] MEDS ORDERED: OXYCODONE W/ ACETAMINOPHEN 5/325MG TABLET PO PRN (10:15)
[2024-05-26] MEDS ORDERED: HYDROmorphone HCL 2 MG/ML VL/or syr IV PRN (10:15)
[2024-05-26] MEDS ORDERED: MORPHINE SULFATE INJ 2 MG/ml SYRG IV PRN (10:15)
[2024-05-26] MEDS ORDERED: ONDANSETRON HCL 4 MG/2 ML VIAL IV PRN ×2 (10:15→12:30)
[2024-05-26] MEDS: LACTATED RINGER'S 1,000 ML IV SCH ×2 (10:15→21:52)
[2024-05-26] MEDS ORDERED: ceFAZolin 1GM VL ONE (10:50)
[2024-05-26] MEDS: ACCU-CHEK COMFORT CURVE STRIP VI SCH (11:30)
[2024-05-26] MEDS: InsuLIN REG 1unit/0.01ml Soln (100units/ml) SC SCH ×2 (11:30→21:45)
[2024-05-26] MEDS: VANCOMYCIN HCL 1000 MG VL ONE ×2 (11:30→11:45)
[2024-05-26] MEDS: MORPHINE SULF PF 5 MG/10 ML VIAL ONE (11:45)
[2024-05-26] MEDS: BUPIVACAINE 0.25% INJ 50ML VIAL ONE (11:45)
[2024-05-26] MEDS: KETOROLAC TROMETH 30 MG/ML 1ML VIAL ONE (11:45)
[2024-05-26] MEDS ORDERED: NALOXONE HCL 0.4 MG/ML VIAL IV PRN (12:30)
[2024-05-26] MEDS ORDERED: DexAMETHasone SOD PHOS 10MG/1ML VIAL INJ IV PRN (12:30)
[2024-05-26] MEDS ORDERED: diphenhdrAMINE HCL 50 MG/1 ML VL IV PRN (12:30)
[2024-05-26] MEDS: CYCLOBENZAPRINE HCL 10 MG TAB PO PRN (13:46)
[2024-05-26] MEDS: ONDANSETRON HCL 4 MG/2 ML VIAL IV ONE (16:51)
[2024-05-26] MEDS: SODIUM CHLOR 0.9% PF (SALINE LOCK) 10ML VIAL/SYR IV SCH (16:52)
[2024-05-26] MEDS: ceFAZolin 2 GM/D5W50ml 50 ML IV SCH ×2 (16:52→18:35)
[2024-05-26] MEDS ORDERED: TEMAZEPAM 15 MG CAP PO SCH (18:00)
[2024-05-26] MEDS: FUROSEMIDE 40 MG TAB PO SCH (21:19)
[2024-05-26] MEDS: MAGNESIUM OXIDE 400 MG TAB PO SCH (21:39)
[2024-05-26] MEDS: DOCUSATE SOD 100 MG CAP PO SCH (21:39)
[2024-05-26] MEDS: POTASSIUM CHL 20 Meq TABLET PO SCH (21:39)
[2024-05-26] MEDS: SACUBITRIL-VALSARTAN 24mg/26mg TAB PO SCH (21:40)
[2024-05-26] MEDS: ACETAMINOPHEN 500 MG TAB PO SCH (21:49)
[2024-05-26] MEDS: KETOROLAC TROMETH 30 MG/ML 1ML VIAL IV PRN (21:58)
[2024-05-26] MEDS: ALPRAZolam 0.5 MG TAB PO SCH (22:00)
[2024-05-26] MEDS: TEMAZEPAM 15 MG CAP PO SCH (22:00)
[2024-05-26] MEDS: oxyCODONE ER 10 MG TAB PO SCH (22:00)
[2024-05-27] VITALS (26 sets, daily range): BP systolic 99–151; BP diastolic 64–107; PULSE 78–99; RESP 16–19; TEMP 97.2–98.8; O2SAT 18–97
[2024-05-27 05:59] LABS: Eosinophils # (auto) 0 10 ^3/uL (0-0.8); Lymphocytes # (auto) 0.3 10 ^3/uL (0.4-5.4); Lymphocytes % (auto) 3.1 % (10.0-50.0); Monocytes # (auto) 0.6 10 ^3/uL (0-1.3)
[2024-05-27 06:02] LABS: Basophils # (auto) 0.1 10 ^3/uL (0-0.2); Basophils % (auto) 1.1 % (0.0-2.0); Eosinophils % (auto) 0.1 % (0.0-7.0); Hematocrit 45.7 % (41.0-53.0); Hemoglobin 15.1 g/dL (13.5-17.5); Mean Corpuscular Hemoglobin 33.5 pg (28.0-32.0); Mean Corpuscular Volume 101.5 fL (80.0-100.0); Monocytes % (auto) 6.2 % (0.0-12.0); Neutrophils # (auto) 8.3 10 ^3/uL (1.6-8.6); Neutrophils % (auto) 89.5 % (37.0-80.0); Nucleated Red Blood Cells % 0.1 %; Red Blood Cells 4.51 10^6/uL (4.5-5.90); Red Cell Distribution Width 15.6 % (11.8-14.3); White Blood Cell 9.2 10^3/uL (4.4-10.8)
[2024-05-27 06:18] LABS: Alanine Aminotransferase 28 U/L (7-40); Alkaline Phosphatase 73 U/L (46-116); Anion Gap 2 (5-15); BUN/Creatinine Ratio 21.4 (10.0-20.0); Blood Urea Nitrogen 21 mg/dL (9-23); Calcium 9.6 mg/dL (8.7-10.4); Carbon Dioxide 29 mmol/L (20-30); Chloride 105 mmol/L (98-107); Glucose 165 mg/dL (74-106); Sodium 136 mmol/L (136-145)
[2024-05-27 06:19] LABS: Albumin 4.1 g/dL (3.2-4.8); Aspartate Aminotransferase 16 U/L (13-40); Bilirubin, Total 0.8 mg/dL (0.2-1.0); Total Protein 6.6 g/dL (5.7-8.2)
[2024-05-27 06:33] LABS: Potassium 5.7 mmol/L (3.5-5.1)
[2024-05-27] MEDS: SODIUM ZIRCONIUM CYCL 10 GM PAK PO ONE ×2 (08:30→10:08)
[2024-05-27] MEDS: OXYCODONE W/ ACETAMINOPHEN 5/325MG TABLET PO PRN (08:50)
[2024-05-27] MEDS: THIAMINE HCL 100 MG TAB PO SCH (10:09)
[2024-05-27] MEDS: HYDROmorphone HCL 2 MG/ML VL/or syr IV PRN (10:11)
[2024-05-27] MEDS: APIXABAN 5 MG TAB PO SCH (21:26)
[2024-05-28] VITALS (14 sets, daily range): BP systolic 90–115; BP diastolic 55–79; PULSE 72–96; RESP 16–20; TEMP 97–98.6; O2SAT 92–99
[2024-05-28 06:54] LABS: Anion Gap 2 (5-15); Carbon Dioxide 33 mmol/L (20-30); Chloride 103 mmol/L (98-107); Potassium 4.9 mmol/L (3.5-5.1); Sodium 138 mmol/L (136-145)
[2024-05-28 06:55] LABS: Calcium 9.9 mg/dL (8.5-10.1)
[2024-05-28 07:00] LABS: BUN/Creatinine Ratio 28.4 (10.0-20.0); Blood Urea Nitrogen 23 mg/dL (9-23); Glucose 117 mg/dL (74-106)
[2024-05-28 07:10] LABS: Basophils # (auto) 0 10 ^3/uL (0-0.2); Basophils % (auto) 0.2 % (0.0-2.0); Eosinophils # (auto) 0 10 ^3/uL (0-0.8); Hemoglobin 13.9 g/dL (13.5-17.5); Lymphocytes # (auto) 0.9 10 ^3/uL (0.4-5.4); Monocytes # (auto) 0.6 10 ^3/uL (0-1.3)
[2024-05-28 07:11] LABS: Eosinophils % (auto) 0.6 % (0.0-7.0); Hematocrit 42.3 % (41.0-53.0); Lymphocytes % (auto) 12.9 % (10.0-50.0); Mean Corpuscular Hemoglobin 33.6 pg (28.0-32.0); Mean Corpuscular Hgb Conc. 32.9 g/dL (32.0-36.0); Mean Corpuscular Volume 102.2 fL (80.0-100.0); Monocytes % (auto) 8.6 % (0.0-12.0); Neutrophils # (auto) 5.7 10 ^3/uL (1.6-8.6); Neutrophils % (auto) 77.7 % (37.0-80.0); Nucleated Red Blood Cells % 0.2 %; Red Blood Cells 4.14 10^6/uL (4.5-5.90); Red Cell Distribution Width 15.6 % (11.8-14.3); White Blood Cell 7.3 10^3/uL (4.4-10.8)
[2024-05-29] VITALS (8 sets, daily range): BP systolic 101–122; BP diastolic 65–79; PULSE 61–90; RESP 18–20; TEMP 97.4–98.6; O2SAT 91–99
[2024-05-29 08:36] LABS: Hematocrit 42.4 % (41.0-53.0); Hemoglobin 14.1 g/dL (13.5-17.5)
[2024-05-29 09:07] LABS: Chloride 101 mmol/L (98-107); Potassium 4.3 mmol/L (3.5-5.1); Sodium 137 mmol/L (136-145)
[2024-05-29 09:08] LABS: Anion Gap 3 (5-15); Carbon Dioxide 33 mmol/L (20-30)
[2024-05-29 09:09] LABS: Calcium 9.7 mg/dL (8.5-10.1)
[2024-05-29 09:13] LABS: BUN/Creatinine Ratio 30.4 (10.0-20.0); Blood Urea Nitrogen 24 mg/dL (9-23); Glucose 100 mg/dL (74-106)
[2024-05-30] VITALS (12 sets, daily range): BP systolic 103–130; BP diastolic 57–73; PULSE 82–96; RESP 18–20; TEMP 97.3–98.5; O2SAT 87–96
[2024-05-30 09:06] LABS: Hematocrit 41.6 % (41.0-53.0); Hemoglobin 13.9 g/dL (13.5-17.5)
[2024-05-31 05:21] VITALS: BP 115/73; PULSE 91; RESP 18; TEMP 97.5; O2SAT 94
[2024-05-31 08:00] VITALS: PULSE 91; RESP 18; O2SAT 94
[2024-05-31 09:00] VITALS: BP 113/68; PULSE 83; RESP 18; TEMP 97.7; O2SAT 96
== END 2024-05-31 12:20 | disposition home or self-care (01) | DRG 470 ==
LOC: SUR 07:09 → TELE 10:17 → TELE-EAST 15:30 → EAST 05-28 14:20
PROVIDERS: ADMIT Orthopaedic Surgery Adult Reconstructive Orthopaedic Surgery; ATTEND Internal Medicine
PROC: 5A09357 Assistance with Respiratory Ventilation, Less than 24 Consecutive Hours, Continuous Positive Airway Pressure (ICD-10-PCS; 2024-05-26)
PROC: 0SRD0J9 Replacement of Left Knee Joint with Synthetic Substitute, Cemented, Open Approach (ICD-10-PCS; principal; 2024-05-26 09:54)
PROC: 5A09357 Assistance with Respiratory Ventilation, Less than 24 Consecutive Hours, Continuous Positive Airway Pressure (ICD-10-PCS; 2024-05-27)
PROC: 5A09357 Assistance with Respiratory Ventilation, Less than 24 Consecutive Hours, Continuous Positive Airway Pressure (ICD-10-PCS; 2024-05-28)
DX: M17.12 Unilateral primary osteoarthritis, left knee (principal); I50.42 Chronic combined systolic (congestive) and diastolic (congestive) heart failure; D68.69 Other thrombophilia; Z68.43 Body mass index [BMI] 50.0-59.9, adult; M87.88 Other osteonecrosis, other site; G47.33 Obstructive sleep apnea (adult) (pediatric); F10.10 Alcohol abuse, uncomplicated; Y90.9 Presence of alcohol in blood, level not specified; E66.01 Morbid (severe) obesity due to excess calories; E87.5 Hyperkalemia; I48.0 Paroxysmal atrial fibrillation; I11.0 Hypertensive heart disease with heart failure; F41.9 Anxiety disorder, unspecified; D69.6 Thrombocytopenia, unspecified; K70.9 Alcoholic liver disease, unspecified; R73.03 Prediabetes; Z87.891 Personal history of nicotine dependence
CPT/HCPCS: 36415; 73562; 80048; 80053; 81001; 82962; 83735; 84132; 85014; 85018; 85025; 85610; 85730; 86850; 86900; 86901; 94660; 97110; 97116; 97163; 97530; G0378; J0131; J0690; J1815; J1885; J2250; J2405; J2704; J3490

== ENCOUNTER 2025-06-02 09:41 | Inpatient (IN) | payer BC ==
[~2025-06-02] VITALS: Ht 175.3 cm; Wt 149.1 kg
[2025-06-02] VITALS (27 sets, daily range): BP systolic 84–115; BP diastolic 31–83; PULSE 123–152; RESP 9–27; TEMP 97.8–98; O2SAT 91–96
[2025-06-02] MEDS: LORazepam 2MG/ML-1ML VIAL IV ONE ×3 (10:09→20:33)
[2025-06-02] MEDS: SODIUM CHLORIDE 0.9% 1,000 ML IV ONE (10:10)
[2025-06-02 10:35] LABS: Hematocrit 37.0 % (41.0-53.0); Hemoglobin 12.7 g/dL (13.5-17.5); Mean Corpuscular Hemoglobin 33.9 pg (28.0-32.0); Mean Corpuscular Volume 98.8 fL (80.0-100.0); Nucleated Red Blood Cells % 0.1 %
[2025-06-02 10:41] LABS: Anion Gap 10 (5-15); Carbon Dioxide 25 mmol/L (20-31); Chloride 102 mmol/L (98-107); Potassium 4.5 mmol/L (3.5-5.1); Sodium 137 mmol/L (136-145)
[2025-06-02 10:42] LABS: Calcium 10.3 mg/dL (8.7-10.4)
[2025-06-02 10:47] LABS: BUN/Creatinine Ratio 18.0 (10.0-20.0); Blood Urea Nitrogen 20 mg/dL (9-23)
[2025-06-02 10:51] LABS: Glucose 118 mg/dL (74-106); INR 1.18 (0.9-1.15); Partial Thromboplastin Time 28.2 SEC (24.5-34.5); Prothrombin Time 12.3 sec (9.3-11.8)
[2025-06-02] MEDS: ONDANSETRON HCL 4 MG/2 ML VIAL IV ONE ×2 (11:00→13:10)
--- NOTE | 2025-06-02 11:24 | ECG ---
[facility] Test Date: 2025-06-02 Test Time: 10:05:55 Pat Name: ELVIS LEDEZMA Department: ED Room: 0261 Gender: M Managing Editor: FERNANDO : 1970 Requested By: MAME FLEMING Order Number: [id number] Reading MD: Perico Laws Measurements Intervals Halfway Rate: 189 P: 0 IL: 0 QRS: -65 QRSD: 88 T: 90 QT: 272 QTc: 483 Interpretive Statements Atrial fibrillation with rapid V-rate Left anterior fascicular block Low voltage, precordial leads Abnormal R-wave progression, early transition Consider anterior infarct ST depression, probably rate related Electronically Signed On 06-04-2025 19:00:40 PDT by Perico Laws Please click the below link to view image of tracing.
[2025-06-02] MEDS: AMIODARONE 360mg/200mL PREMIX 200 ML IV ONE (11:28)
[2025-06-02] MEDS: AMIODARONE BOLUS KIT 100 ML IV ONE (11:30)
[2025-06-02] MEDS: KETAMINE 50mg/ML 10ml Vial (500mg/10ml) IV ONE (11:30)
[2025-06-02] MEDS: MORPHINE SULFATE 4 MG/ML SYR/VIAL IV ONE (13:10)
--- NOTE | 2025-06-02 13:52 | DVH ---
XY CHEST PORTABLE, HISTORY: weakness COMPARISON: XY CHEST PORTABLE on DOS: 01/22/24, XY CHEST PORTABLE on DOS: 04/08/23, XY CHEST PORTABLE o n DOS: 03/31/23 XY CHEST PORTABLE on DOS: 01/22/24, XY CHEST PORTABLE on DOS: 04/08/23, XY CHEST PORTABLE on DOS: 3 TECHNICAL DATA: 1 view of the chest was obtained. FINDINGS: Lines and tubes: None Cardiomediastinal silhouette: Prominent Pulmonary vasculature: Prominent Lung expansion: normal Lung airspace: Patchy bibasilar airspace opacities could be atelectasis. Lung interstitium: normal Pleura: normal Pneumothorax: no Bones: Unremarkable Other: no IMPRESSION: Patchy bibasilar airspace opacities could be atelectasis. Mild cardiomegaly with pulmonary congestion.
[2025-06-02] MEDS: SODIUM CHLORIDE 0.9% 2,000 ML IV ONE (14:26)
[2025-06-02] MEDS: METOPROLOL TARTRATE 1MG/1ML-5ML VIAL IV SCH (14:29)
[2025-06-02] MEDS: fentaNYL CITRATE 100 MCG/2 ML VL IV ONE (14:58)
[2025-06-02] MEDS ORDERED: ACETAMINOPHEN 325 MG TAB PO PRN (15:30)
[2025-06-02] MEDS ORDERED: MORPHINE SULFATE INJ 2 MG/ml SYRG IV PRN (15:30)
[2025-06-02] MEDS ORDERED: NITROGLYCERIN 0.4 MG SL TAB SL PRN (15:30)
[2025-06-02] MEDS ORDERED: ONDANSETRON HCL 4 MG/2 ML VIAL IV PRN (15:30)
[2025-06-02] MEDS ORDERED: DOCUSATE SOD 100 MG CAP PO PRN (15:30)
--- NOTE | 2025-06-02 15:35 | DVHINCON2 ---
Date Seen: Jun 02, 2025 Referring Physician SÁNCHEZ Bradshaw Reason for Consultation A-fib with RVR History of Present Illness This is a 55-year-old man who presented to the emergency room with a chief complaint of left testicular varicose vein rupture. Per patient, he was at work at the onset of symptoms. Reports heavy unstoppable bleeding to the left testicle secondary to varicose vein rupture which was repaired within the Emergency Room. At that time he was also found to be tachycardic for which he underwent a 12 lead electrocardiogram revealing an atrial fibrillation rhythm with a rapid ventricular rate at 189 bpm and medicated with IVF, metoprolol tartrate IV 5 mg x 1, and placed on an amiodarone drip per pharmacy protocol. At time of assessment he denied any cardiac symptoms. Continues to be in a-fib with RVR in the 140s bpm and with an associated systolic blood pressure of 88 mmHg. He last took his Eliquis therapy on Sunday night. Admits to recent alcohol use, dietary indiscretions including increased sodium intake, and poor oral hydration. Significant medical history includes paroxysmal atrial fibrillation on Eliquis therapy, heart failure with improved ejection fraction from 25% to 60%, nonischemic cardiomyopathy, history of direct current cardioversion, moderate tricuspid insufficiency, obstructive sleep apnea on CPAP HS, varicose veins, anxiety, alcohol use, previous tobacco use, and morbid obesity. Past Medical History Past medical history reviewed. No other significant than mentioned above. Past Surgical History Left knee Appendectomy Right shoulder Vasectomy Family History: FHx: Parkinson's disease G8 FATHER, FHx: brain aneurysm FHx: lung cancer G8 MOTHER Family History Family history reviewed. Social History Denies the use of illicit drugs or tobacco use. Admits to recent alcohol use including beer. Allergies: Coded Allergies: NO KNOWN ALLERGIES (Unverified , 04/16/20) Home Meds Active Scripts Sacubitril-Valsartan (Entresto 24-26 mg) 1 Tab Tab, 1 TAB PO BID, #60 TAB 3 Refills Prov:ASHER BRIONES MD 01/26/24 Empagliflozin (Jardiance) 10 Mg Tab, 10 MG PO DAILY for 30 Days, #30 TAB 3 Refills Prov:ASHER BRIONES MD 01/26/24 Potassium Chloride (Klor-Con M20) 20 Meq Tab, 20 MEQ PO BID for 30 Days, #60 TAB 2 Refills Prov:AYDEN PATRICK MD 04/09/23 Furosemide (Lasix) 40 Mg Tab, 40 MG PO BID for 30 Days, #60 TAB 2 Refills Prov:AYDEN PATRICK MD 04/09/23 Magnesium Oxide (Mag-Ox) 400 Mg Tb, 400 MG PO BID for 30 Days, #60 TAB 2 Refills Prov:AYDEN PATRICK MD 04/09/23 Apixaban Base (ELIQUIS) 5 Mg Tab, 5 MG PO BID for 30 Days, #60 TAB 2 Refills Prov:AYDEN PATRICK MD 04/09/23 Reported Medications Temazepam (Restoril) 30 Mg Cap, 30 MG PO QPM, CAP 05/23/24 Alprazolam (Alprazolam) 1 Mg Tab, 1 MG PO PRN, TAB 05/23/24 Home Meds Home medications reviewed. Current Medications Current Medications Medications (Trade) Dose Ordered Sig/Olesya Route PRN Reason Start Time Stop Time Status Last Admin Metoprolol Tartrate (Lopressor) 5 mg Q5M IV 06/02/25 13:30 06/02/25 15:29 DC 06/02/25 14:29 Acetaminophen/ Hydrocodone Bitart ([place] 5/325MG Tab) 1 tab Q4HP PRN PO MODERATE PAIN (4-6 PAIN SCALE) 06/02/25 15:30 UNV Ondansetron HCl (Zofran) 4 mg Q4HP PRN IV NAUSEA / VOMITING 06/02/25 15:30 UNV Docusate Sodium (Colace Capsule) 100 mg BIDPRN PRN PO FOR CONSTIPATION 06/02/25 15:30 UNV Acetaminophen (Tylenol Tablet) 650 mg Q6HP PRN PO PAIN SCALE 1-3 OR TEMP>100.4 06/02/25 15:30 UNV Nitroglycerin (Ntrostat Sublingual) 0.4 mg Q5MINP PRN SL FOR CHEST PAIN 06/02/25 15:30 UNV Morphine Sulfate 2 mg Q30M PRN IV FOR CHEST PAIN 06/02/25 15:30 UNV Review of Systems Constitutional: No symptom reported Ears, Nose, & Throat: No symptom reported Eyes: No symptom reported Neurological: No symptoms reported Pulmonary/Respiratory: No symptom reported Cardiovascular: No symptom reported Gastrointestinal: No symptom reported Genitourinary: Testicular pain (L) Musculoskeletal: No symptom reported Skin: No symptom reported Psychiatric: No symptom reported Endocrine: No symptom reported Hemotologic/Lymphatic: No symptom reported Vital Signs Vital Signs Date Time Temp Pulse Resp B/P (MAP) Pulse Ox O2 Delivery O2 Flow Rate FiO2 06/02/25 14:58 95/62 06/02/25 14:29 180 06/02/25 13:10 20 06/02/25 09:41 98.4 94 98.4 Physical Exam General Appearance: Cooperative. Appears lethargic. In no acute distress Head Exam: Normal inspection Neck Exam: Normal inspection. Non-tender. Normal alignment Pulmonary/Respiratory: Chest non-tender. Crackles to bilateral breath sounds Cardiovascular/Chest: Regularly irregular rate and rhythm. A-fib with RVR. No murmurs. No JVD. Peripheral Pulses: 2+ Radial (R). 2+ Radial (L). 2+ Pedal (R). 2+ Pedal (L) Abdominal Exam: Normal bowel sounds. Soft. Nontender. Ankle Exam: Negative ankle edema Lower extremities: Negative lower extremity edema Neuro/Mental Status: A&O x4. Coherent Thoughts/Psych: Normal thought pattern. Appropriate mood and affect. Good judgement and insight Appearance: In no acute distress Skin Exam: Abnormal left testicle, abnormal right ankle area. Hematomas to abdominal area Labs/Diagnostic Data Labs Test 06/02/25 13:37 06/02/25 10:19 Range/Units Hemoglobin 12.6 L 13.5-17.5 g/dL White Blood Count 4.5 4.4-10.8 10^3/uL Red Blood Count 3.74 L 4.5-5.90 10^6/uL Hematocrit 37.0 L 41.0-53.0 % Mean Corpuscular Volume 98.8 80.0-100.0 fL Mean Corpuscular Hemoglobin 33.9 H 28.0-32.0 pg Mean Corpuscular Hemoglobin Concent 34.3 32.0-36.0 g/dL Red Cell Distribution Width 14.5 H 11.8-14.3 % Platelet Count 168 140-450 10^3/uL Mean Platelet Volume 7.7 6.9-10.8 fL Neutrophils (%) (Auto) 60.0 37.0-80.0 % Lymphocytes (%) (Auto) 26.1 10.0-50.0 % Monocytes (%) (Auto) 10.3 0.0-12.0 % Eosinophils (%) (Auto) 3.1 0.0-7.0 % Basophils (%) (Auto) 0.5 0.0-2.0 % Neutrophils # (Auto) 2.7 1.6-8.6 10 ^3/uL Lymphocytes # (Auto) 1.2 0.4-5.4 10 ^3/uL Monocytes # (Auto) 0.5 0-1.3 10 ^3/uL Eosinophils # (Auto) 0.1 0-0.8 10 ^3/uL Basophils # (Auto) 0 0-0.2 10 ^3/uL Nucleated Red Blood Cells 0.1 % Prothrombin Time 12.3 H 9.3-11.8 sec Prothrombin Time INR 1.18 H 0.9-1.15 Activated Partial Thromboplast Time 28.2 24.5-34.5 SEC Sodium Level 137 136-145 mmol/L Potassium Level 4.5 3.5-5.1 mmol/L Chloride Level 102 98-107 mmol/L Carbon Dioxide Level 25 20-31 mmol/L Anion Gap 10 5-15 Blood Urea Nitrogen 20 9-23 mg/dL Creatinine 1.11 0.700-1.30 mg/dL Glomerular Filtration Rate Calc 79 >90 mL/min BUN/Creatinine Ratio 18.0 10.0-20.0 Serum Glucose 118 H 74-106 mg/dL Calcium Level 10.3 8.7-10.4 mg/dL Assessment Paroxysmal atrial fibrillation with rapid ventricular rate (Stage IIIa) Acute on chronic decompensated HFimpEF, NYHA Class II Nonischemic cardiomyopathy History of direct current cardioversion Recent dietary indiscretions/alcohol use Obstructive sleep apnea on CPAP HS Morbid obesity Plan/Recommendation (Dr. Laws) At time of assessment the patient was found in an atrial fibrillation rhythm with a rapid ventricular rate in the 140s bpm and an associated systolic blood pressure of 88 mmHg. Load on digoxin therapy and initiate magnesium IV. Continue amiodarone drip per pharmacy protocol. He may be a candidate for DCCV in the setting of further hemodynamic instability for which we will continue to monitor closely. Hold all blood pressure medications and aggressive diuretic therapy given acute hypotension. Continue DOAC therapy with Eliquis if no fur ther bleeding noted. Monitor ECG changes closely. Notify of any acute hemodynamic changes, worsening hypotension, or worsening tachyarrhythmia. Initiate CPAP HS. Rest of plan per clinical course. Thank you for allowing us to participate in this patient's care. Please call if you have any questions or concerns. Critical care time: 45 min. This medical document was created using an electronic medical record system with voice recognition software and computerized dictation system. Although this document has been carefully reviewed, there might still be some phonetic and typographical errors. Occasional wrong-word or ``sound-alike substitutions may have occurred due to the inherent limitations of voice recognition software. These areas are purely typographical due to imperfections of the software programs and do not reflect any compromise in the patient's medical care. Please read the chart carefully and recognize, using context, where these substitutions have occurred. Plan discussed with: Patient, Other NYHA Physical activity limitations: Class2(Slight)fatigue,sob (palpitatns, angina w activityv) Date of Service: Jun 02, 2025 Billing Provider: MIK PRATT Cardiology Common Codes: 80036-[id number] CARE 30-74 MIN MIK PRATT Jun 02, 2025 15:35
[2025-06-02] MEDS ORDERED: FUROSEMIDE 100 MG/10ML VIAL IV ONE (15:45)
[2025-06-02] MEDS ORDERED: ALPRAZOLAM 1 MG PO SCH (15:45)
--- NOTE | 2025-06-02 16:12 | DVHHP2 ---
History of Present Illness Reason for Visit: Variceal bleeding History of Present Illness Jose Antonio Braden is a 55-year-old male with past medial history of CHF, atrial fibrillation, obstructive sleep apnea, and alcohol abuse, who came to the ER due to variceal bleeding from his scrotum. Patient was at work when he went to the bathroom and noticed he was having heaving variceal bleeding from his scrotum. He was taken to ER where the ER physician stitched the variceal. Patient was also found to be in atrial fibrillation with RVR with a rate of 180-190. IV metoprolol was given and patient was started on IV amiodarone. His heart rate decreased to 140's, cardiology consult was placed. Cardiovascular: AFIB, CHF Pulmonary: Other (obstructive sleep apnea) Past Surgical History: Appendectomy, Other (right shoulder, vasectomy), Total knee replacement (left) Smoke: Quit ALCOHOL: heavy (5-6 beers/day) Drugs: None Lives: with Family Domestic Violence: Neg Review of Systems Constitutional: No: Fever, Chills, Sweats, Weakness, Malaise, Other Eyes: No: Pain, Vision change, Conjunctivae inflammation, Eyelid inflammation, Other, Redness ENT: No: Ear pain, Ear discharge, Nose pain, Nose discharge, Nose congestion, Mouth pain, Mouth swelling, Throat pain, Throat swelling, Other Respiratory: No: Cough, Dry, Shortness of breath, SOB with excertion, Wheezing, Hemoptysis, Pleuritic Pain, Sputum, Wheezing, Other Cardiovascular: No: Chest Pain, Palpitations, Orthopnea, Paroxysmal Noc. Dyspnea, Edema, Lt Headedness, Other Gastrointestinal: No: Nausea, Vomiting, Abdominal Pain, Diarrhea, Constipation, Melena, Hematochezia, Other Genitourinary: No Dysuria, No Frequency, No Incontinence, No Hematuria, No Retention, No Other Musculoskeletal: No: other, neck pain, shoulder pain, arm pain, back pain, hand pain, leg pain, foot pain Skin: Other (Variceal bleeding from scrotum); No: Rash, Lesions, Jaundice, Bruising Neurological: No: Weakness, Numbness, Incoordination, Change in speech, Confusion, Seizures, Other Allergies: Coded Allergies: NO KNOWN ALLERGIES (Unverified , 04/16/20) Medications Current Medications Medications Dose Ordered Sig/Olesya Route Start Time Stop Time Status Last Admin Dose Admin Acetaminophen/ Hydrocodone Bitart 1 tab Q4HP PRN PO 06/02/25 15:30 UNV Ondansetron HCl 4 mg Q4HP PRN IV 06/02/25 15:30 UNV Docusate Sodium 100 mg BIDPRN PRN PO 06/02/25 15:30 UNV Acetaminophen 650 mg Q6HP PRN PO 06/02/25 15:30 UNV Nitroglycerin 0.4 mg Q5MINP PRN SL 06/02/25 15:30 UNV Morphine Sulfate 2 mg Q30M PRN IV 06/02/25 15:30 UNV Furosemide 40 mg BIDD IV 06/03/25 08:00 UNV Apixaban 5 mg BID PO 06/02/25 22:00 UNV Empaglifozin 10 mg DAILY PO 06/03/25 10:00 UNV Sacubitril/ Valsartan 1 tab BID PO 06/02/25 22:00 UNV Patient Own Medication 1 mg PRN PO 06/02/25 15:45 UNV Patient Own Medication 400 mg BID PO 06/02/25 22:00 UNV Patient Own Medication 30 mg QPM PO 06/02/25 18:00 UNV Exam Vital Signs Vital Signs Date Time Temp Pulse Resp B/P (MAP) Pulse Ox O2 Delivery O2 Flow Rate FiO2 06/02/25 14:58 95/62 06/02/25 14:29 180 06/02/25 13:10 20 06/02/25 09:41 98.4 94 98.4 General Appearance: Alert, Oriented X3, Cooperative, moderate distress HEENT: Atraumatic, PERRLA Respiratory: Clear to auscultation, Normal air movement Cardiovascular: Other (atrial fibrillation with RVR) Abdominal: Normal bowel sounds, Other (firm, distended) Extremities: No clubbing, No cyanosis, Other (bilateral lower extremity edema, right ankle is wrapped due to bleeding variceal) Skin: No rashes, No breakdown, No significant lesion (Variceal bleeding from scrotum) Neuro: Normal gait, Normal speech, Strength at 5/5 X4 ext, Normal tone Psych/Mental Status: Mental status NL, Mood NL Labs/Xrays Labs Test 06/02/25 13:37 06/02/25 10:19 Range/Units Hemoglobin 12.6 L 13.5-17.5 g/dL White Blood Count 4.5 4.4-10.8 10^3/uL Red Blood Count 3.74 L 4.5-5.90 10^6/uL Hematocrit 37.0 L 41.0-53.0 % Mean Corpuscular Volume 98.8 80.0-100.0 fL Mean Corpuscular Hemoglobin 33.9 H 28.0-32.0 pg Mean Corpuscular Hemoglobin Concent 34.3 32.0-36.0 g/dL Red Cell Distribution Width 14.5 H 11.8-14.3 % Platelet Count 168 140-450 10^3/uL Mean Platelet Volume 7.7 6.9-10.8 fL Neutrophils (%) (Auto) 60.0 37.0-80.0 % Lymphocytes (%) (Auto) 26.1 10.0-50.0 % Monocytes (%) (Auto) 10.3 0.0-12.0 % Eosinophils (%) (Auto) 3.1 0.0-7.0 % Basophils (%) (Auto) 0.5 0.0-2.0 % Neutrophils # (Auto) 2.7 1.6-8.6 10 ^3/uL Lymphocytes # (Auto) 1.2 0.4-5.4 10 ^3/uL Monocytes # (Auto) 0.5 0-1.3 10 ^3/uL Eosinophils # (Auto) 0.1 0-0.8 10 ^3/uL Basophils # (Auto) 0 0-0.2 10 ^3/uL Nucleated Red Blood Cells 0.1 % Prothrombin Time 12.3 H 9.3-11.8 sec Prothrombin Time INR 1.18 H 0.9-1.15 Activated Partial Thromboplast Time 28.2 24.5-34.5 SEC Sodium Level 137 136-145 mmol/L Potassium Level 4.5 3.5-5.1 mmol/L Chloride Level 102 98-107 mmol/L Carbon Dioxide Level 25 20-31 mmol/L Anion Gap 10 5-15 Blood Urea Nitrogen 20 9-23 mg/dL Creatinine 1.11 0.700-1.30 mg/dL Glomerular Filtration Rate Calc 79 >90 mL/min BUN/Creatinine Ratio 18.0 10.0-20.0 Serum Glucose 118 H 74-106 mg/dL Calcium Level 10.3 8.7-10.4 mg/dL XY CHEST PORTABLE FINDINGS: Lines and tubes: None Cardiomediastinal silhouette: Prominent Pulmonary vasculature: Prominent Lung expansion: normal Lung airspace: Patchy bibasilar airspace opacities could be atelectasis. Lung interstitium: normal Pleura: normal Pneumothorax: no Bones: Unremarkable Other: no IMPRESSION: Patchy bibasilar airspace opacities could be atelectasis. Mild cardiomegaly with pulmonary congestion. Assessment/Plan Assessment/Plan Assessment: Atrial fibrillation with RVR, Acute on chronic heart failure, Variceal bleeding, Sleep apnea, ETOH abuse, Obesity, Plan: Admit to [facility], Cardiology consult, ECHO, CMP, mg, TSH, Lipid panel, IV Lasix, Fluid restrictions, Strict I&O's, Manage/Monitor electrolytes closely, PRN Ativan for ETOH withdrawal symptoms, Daily supplements for ETOH withdrawal, Pain management, Home medications reconciled, Plan discussed with: Patient My Orders Orders - SUSANNE RUSSO Procedure Category Date Status Time Admit ADMIT 06/02/25 Transmitted 15:27 Code Status CODE 06/02/25 Transmitted 15:27 2 Gm Sodium Diet DIET 06/02/25 Transmitted Dinner Hydrocodone-Acet PHA 06/02/25 Logged 5/325mg Tab ([place] 15:30 Ondansetron Hcl PHA 06/02/25 Logged (Zofran) 15:30 Docusate Sodium PHA 06/02/25 Logged Capsule (Colace 15:30 Complete Blood Count LAB 06/03/25 Verified 04:00 Comprehensive LAB 06/03/25 Verified Metabolic Panel 04:00 Condition: Critical [facility] 06/02/25 In Process 15:27 Acetaminophen Tablet [facility] 06/02/25 Logged (Tylenol Tablet) 15:30 Nitroglycerin PHA 06/02/25 Logged Sublingual (Ntrostat 15:30 Morphine Sulfate PHA 06/02/25 Logged Injection 15:30 Stat Ekg For Chest [facility] 06/02/25 In Process Pain 15:27 Notify Of Changes [facility] 06/02/25 In Process From Base 15:27 Blueprint Assembler For [facility] 06/02/25 In Process 24 Hours 15:27 Emergency Dysrhythmia [facility] 06/02/25 In Process Protocol 15:27 Rhythm Strips Once [facility] 7/8/25 In Process Every Shift 15:27 Oxygen By Nasal RT 06/02/25 Transmitted Cannula 15:27 Echo 2d Mode Cardiac US 06/02/25 Logged DOP 15:27 Comprehensive LAB 06/02/25 Logged Metabolic Panel 15:27 Furosemide Injection PHA 06/03/25 Transmitted (Lasix Injection) 08:00 Furosemide Injection PHA 06/02/25 Transmitted (Lasix Injection) 15:45 Magnesium LAB 06/02/25 Logged 15:31 Apixaban (Eliquis) PHA 06/02/25 Transmitted 22:00 Empagliflozin PHA 06/03/25 Transmitted (Jardiance) 10:00 Sacubitril-Valsartan PHA 06/02/25 Transmitted (Entresto 24-26 Mg 22:00 (Nf) Alprazolam PHA 06/02/25 Transmitted 15:45 (Nf) Magnesium Oxide PHA 06/02/25 Transmitted (Mag-Ox) 22:00 (Nf) Temazepam PHA 06/02/25 Transmitted (Restoril) 18:00 Hydromorphone PHA 06/02/25 Verified Injection (Dilaudid 15:45 Date of Service: Jun 02, 2025 Billing Provider: SUSANNE RUSSO Common Visit Codes: [id number] INP/OBS CARE (HIGH) SUSANNE RUSSO Jun 02, 2025 16:12
[2025-06-02] MEDS ORDERED: ALPRAZolam 0.5 MG TAB PO PRN ×2 (16:15→17:15)
[2025-06-02 16:19] LABS: Triglycerides 127 mg/dL (< 150)
[2025-06-02 16:21] LABS: Cholesterol 187 mg/dL (< 200); HDL Cholesterol 49 mg/dL (40-59)
[2025-06-02] MEDS: DIGOXIN (250MCG/ML) 2 ML AMPULE IV ONE ×2 (16:32→20:33)
[2025-06-02] MEDS: MAGNESIUM SULFATE 1GM/100ML 100 ML IV ONE (16:35)
[2025-06-02] MEDS: MULTIPLE VITAMIN TAB PO ONE (16:48)
[2025-06-02] MEDS: FOLIC ACID 1 MG TAB PO ONE (16:48)
--- NOTE | 2025-06-02 16:49 | DVH ---
Indication: testicular pain, tied off bleeding blood vessel Technique: Real-time ultrasound images through the scrotum. Comparison: None Findings: Technically difficult examination due to recent surgery/suture placement. Right testicle measures 4.2 x 2.9 x 2.5 cm. It has normal echogenicity and echotexture, with no foca l solid or cystic mass. There is normal flow on color Doppler, with normal waveforms. The right epidi dymal head is nonvisualized. Left testicle measures 4.3 x 4.2 x 2.3 cm. It has normal echogenicity and echotexture, with no focal solid or cystic mass. There is normal flow on color Doppler, with normal waveforms. The left epididy mal head nonvisualized. There are bilateral varicoceles. Scrotal edema. Small left hydrocele. Impression: Technically limited evaluation. Within the limitations, no definitive torsion identified. Bilateral varicoceles. Scrotal edema Small left hydrocele. Bilateral epididymi not characterized
[2025-06-02] MEDS: THIAMINE HCL 100 MG TAB PO ONE (16:50)
[2025-06-02 17:26] LABS: Albumin 4.1 g/dL (3.2-4.8); Alkaline Phosphatase 113 U/L (46-116); Anion Gap 7 (5-15); BUN/Creatinine Ratio 19.8 (10.0-20.0); Blood Urea Nitrogen 20 mg/dL (9-23); Calcium 9.4 mg/dL (8.7-10.4); Carbon Dioxide 24 mmol/L (20-31); Chloride 106 mmol/L (98-107); Sodium 137 mmol/L (136-145); Total Protein 6.4 g/dL (5.7-8.2)
[2025-06-02 17:27] LABS: Alanine Aminotransferase 87 U/L (7-40); Glucose 134 mg/dL (74-106); Potassium 5.3 mmol/L (3.5-5.1)
[2025-06-02 17:28] LABS: Bilirubin, Total 1.2 mg/dL (0.2-1.0)
[2025-06-02] MEDS: AMIODARONE 360mg/200mL PREMIX 200 ML IV SCH (17:40)
[2025-06-02] MEDS: FUROSEMIDE 20 MG/2 ML VIAL IV SCH (18:00)
[2025-06-02] MEDS ORDERED: TEMAZEPAM 30 MG PO SCH (18:00)
[2025-06-02] MEDS ORDERED: LORazepam 2MG/ML-1ML VIAL IM ONE (19:30)
--- NOTE | 2025-06-02 20:39 | DVH ---
INDICATION: Cirrhosis TECHNIQUE: Multiple real-time sonographic images of the abdomen were obtained. COMPARISON: US LIVER on DOS: 01/22/24, US ABDOMEN LIMITED on DOS: 03/29/23 FINDINGS: Hepatic parenchyma consistent with steatosis The liver measures 20.8 cm. No intrahepatic b iliary ductal dilatation is noted. The gallbladder wall measures 10 mm cm and is thickened.. No gallstones or sludge is seen. The com mon duct not visible cm and is unremarkable. No pericholecystic fluid is noted. Negative sonographi c Taylor's sign The right kidney measures 0.5 cm. No hydronephrosis. The pancreas is not well visualized due to obscuration from bowel gas. IMPRESSION: 1. Gallbladder wall is thickened and measures 10 mm. Negative sonographic taylor's sign is elicited. 2. Difficult examination due to body habitus 3. Liver measures 20.8 cm in length with findings suggesting steatosis.
[2025-06-02 21:14] LABS: Hematocrit 33.4 % (41.0-53.0); Hemoglobin 11.2 g/dL (13.5-17.5); Mean Corpuscular Hemoglobin 33.5 pg (28.0-32.0); Mean Corpuscular Volume 99.8 fL (80.0-100.0); Nucleated Red Blood Cells % 0.1 %
[2025-06-02] MEDS: HYDROmorphone HCL 2 MG/ML VL/or syr IV PRN (21:32)
[2025-06-02] MEDS: APIXABAN 5 MG TAB PO SCH (21:39)
[2025-06-02] MEDS: MAGNESIUM OXIDE 400 MG TAB PO SCH (21:55)
[2025-06-02] MEDS: FUROSEMIDE 20 MG/2 ML VIAL IV ONE (21:59)
[2025-06-02] MEDS ORDERED: MAGNESIUM OXIDE 400 MG PO SCH (22:00)
[2025-06-02] MEDS ORDERED: SACUBITRIL-VALSARTAN 24mg/26mg TAB PO SCH (22:00)
[2025-06-02] MEDS: TEMAZEPAM 15 MG CAP PO PRN (22:32)
--- NOTE | 2025-06-02 23:27 | DVHINCON2 ---
Date Seen: Jun 02, 2025 Referring Physician SÁNCHEZ Bradshaw Reason for Consultation A-fib with RVR History of Present Illness This is a 55-year-old male with a PMH of paroxysmal atrial fibrillation on Eliquis therapy, heart failure with improved ejection fraction from 25% to 60%, nonischemic cardiomyopathy, history of direct current cardioversion, moderate tricuspid insufficiency, obstructive sleep apnea on CPAP HS, varicose veins, anxiety, alcohol use, previous tobacco use, and morbid obesity who presented to the ED with complaints of left testicular varicose vein rupture. Per patient, he was at work at the onset of symptoms. Reports heavy unstoppable bleeding to the left testicle secondary to varicose vein rupture which was repaired within the ED. At that time he was also found to be tachycardic for which he underwent a 12 lead electrocardiogram revealing an atrial fibrillation rhythm with a rapid ventricular rate at 189 bpm and medicated with IVF, metoprolol tartrate IV 5 mg x 1, and placed on an amiodarone drip per pharmacy protocol. At time of asses sment he denied any cardiac symptoms. Continues to be in a-fib with RVR in the 140s bpm and with an associated systolic blood pressure of 88 mmHg. He last took his Eliquis therapy on Sunday night. Admits to recent alcohol use, dietary indiscretions including increased sodium intake, and poor oral hydration. Patient was admitted to the hospital. I am asked to consult on this patient. Past Medical History Past medical history reviewed. No other significant than mentioned above. Past Surgical History Left knee Appendectomy Right shoulder Vasectomy Family History: FHx: Parkinson's disease G8 FATHER, , Onset:60 years & older FHx: brain aneurysm FHx: lung cancer G8 MOTHER Allergies: Coded Allergies: NO KNOWN ALLERGIES (Unverified , 04/16/20) Home Meds Active Scripts Sacubitril-Valsartan (Entresto 24-26 mg) 1 Tab Tab, 1 TAB PO BID, #60 TAB 3 Refills Prov:ASHER BRIONES MD 01/26/24 Empagliflozin (Jardiance) 10 Mg Tab, 10 MG PO DAILY for 30 Days, #30 TAB 3 Refills Prov:ASHER BRIONES MD 01/26/24 Potassium Chloride (Klor-Con M20) 20 Meq Tab, 20 MEQ PO BID for 30 Days, #60 TAB 2 Refills Prov:AYDEN PATRICK MD 04/09/23 Furosemide (Lasix) 40 Mg Tab, 40 MG PO BID for 30 Days, #60 TAB 2 Refills Prov:AYDEN PATRICK MD 04/09/23 Magnesium Oxide (Mag-Ox) 400 Mg Tb, 400 MG PO BID for 30 Days, #60 TAB 2 Refills Prov:AYDEN PATRICK MD 04/09/23 Apixaban Base (ELIQUIS) 5 Mg Tab, 5 MG PO BID for 30 Days, #60 TAB 2 Refills Prov:AYDEN PATRICK MD 04/09/23 Reported Medications Temazepam (Restoril) 30 Mg Cap, 30 MG PO QPM, CAP 05/23/24 Alprazolam (Alprazolam) 1 Mg Tab, 1 MG PO PRN, TAB 05/23/24 Current Medications Current Medications Medications (Trade) Dose Ordered Sig/Olesya Route PRN Reason Start Time Stop Time Status Last Admin Metoprolol Tartrate (Lopressor) 5 mg Q5M IV 06/02/25 13:30 06/02/25 15:29 DC 06/02/25 14:29 Acetaminophen/ Hydrocodone Bitart ([place] 5/325MG Tab) 1 tab Q4HP PRN PO MODERATE PAIN (4-6 PAIN SCALE) 06/02/25 15:30 Ondansetron HCl (Zofran) 4 mg Q4HP PRN IV NAUSEA / VOMITING 06/02/25 15:30 Docusate Sodium (Colace Capsule) 100 mg BIDPRN PRN PO FOR CONSTIPATION 06/02/25 15:30 Acetaminophen (Tylenol Tablet) 650 mg Q6HP PRN PO PAIN SCALE 1-3 OR TEMP>100.4 06/02/25 15:30 Nitroglycerin (Ntrostat Sublingual) 0.4 mg Q5MINP PRN SL FOR CHEST PAIN 06/02/25 15:30 Morphine Sulfate 2 mg Q30M PRN IV FOR CHEST PAIN 06/02/25 15:30 Furosemide (Lasix Injection) 40 mg BIDD IV 06/03/25 08:00 06/02/25 16:02 DC Apixaban (Eliquis) 5 mg BID PO 06/02/25 22:00 Empaglifozin (Jardiance) 10 mg DAILY PO 06/03/25 10:00 Sacubitril/ Valsartan (Entresto 24-26 Mg tab) 1 tab BID PO 06/02/25 22:00 06/02/25 16:19 DC Patient Own Medication 1 mg PRN PO 06/02/25 15:45 UNV Patient Own Medication 400 mg BID PO 06/02/25 22:00 UNV Patient Own Medication 30 mg QPM PO 06/02/25 18:00 UNV Hydromorphone HCl (Dilaudid Injection) 0.5 mg Q4HPRN PRN IV SEVERE PAIN (7-10 PAIN SCALE) 06/02/25 15:45 06/02/25 21:32 Folic Acid 1 mg DAILY PO 06/03/25 10:00 Thiamine HCl 100 mg DAILY PO 06/03/25 10:00 Multivitamins (Mvi Tab) 1 tab DAILY PO 06/03/25 10:00 Lorazepam (Ativan Inj) 1 mg Q2HP PRN IV ALCOHOL WITHDRAWAL SYMPTOMS 06/02/25 16:00 Furosemide (Lasix Injection) 20 mg BIDD IV 06/02/25 18:00 Magnesium Oxide (Mag-Ox Tablet) 400 mg BID PO 06/02/25 22:00 06/02/25 21:55 Temazepam (Restoril) 30 mg QHSP PRN PO FOR INSOMNIA 06/02/25 16:15 06/02/25 22:32 Alprazolam (Xanax Tablet) 1 mg PRN PRN PO anxiety 06/02/25 16:15 Cancel Alprazolam (Xanax Tablet) 1 mg Q6HP PRN PO ANXIETY 06/02/25 17:15 Cancel Phenylephrine HCl 250 ml @ 30 mls/hr Q8H20M IV 06/02/25 19:30 Digoxin (Lanoxin Injection) 125 mcg DAILY IV 06/03/25 10:00 Alprazolam (Xanax Tablet) 0.25 mg Q4HPRN PRN PO ANXIETY 06/02/25 19:30 Review of Systems Constitutional: No symptom reported Ears, Nose, & Throat: No symptom reported Eyes: No symptom reported Neurological: No symptoms reported Pulmonary/Respiratory: No symptom reported Cardiovascular: No symptom reported Gastrointestinal: No symptom reported Genitourinary: Testicular pain (L) Musculoskeletal: No symptom reported Skin: No symptom reported Psychiatric: No symptom reported Endocrine: No symptom reported Hemotologic/Lymphatic: No symptom reported Vital Signs Vital Signs Date Time Temp Pulse Resp B/P (MAP) Pulse Ox O2 Delivery O2 Flow Rate FiO2 06/02/25 23:16 97.8 136 18 95/62 96 2.0 28 97.8 06/02/25 23:09 Facial BiPAP Mask Physical Exam GENERAL: Alert and oriented x 3. Lethargic. EYES: PERRL, EOMI. Anicteric. HENT: Moist mucous membranes. LUNGS: Clear to auscultation bilaterally. CARDIOVASCULAR: Regular rate and rhythm. ABDOMEN: Soft, non-tender and non-distended. EXTREMITIES: No edema. NEUROLOGIC: No focal neurological deficits. SKIN: Abnormal left testicle, abnormal right ankle area. Hematomas to abdominal area. Labs/Diagnostic Data Labs Test 06/02/25 20:59 06/02/25 16:58 06/02/25 10:19 Range/Units White Blood Count 6.0 # 4.4-10.8 10^3/uL Red Blood Count 3.35 L 4.5-5.90 10^6/uL Hemoglobin 11.2 L 13.5-17.5 g/dL Hematocrit 33.4 L 41.0-53.0 % Mean Corpuscular Volume 99.8 80.0-100.0 fL Mean Corpuscular Hemoglobin 33.5 H 28.0-32.0 pg Mean Corpuscular Hemoglobin Concent 33.5 32.0-36.0 g/dL Red Cell Distribution Width 14.6 H 11.8-14.3 % Platelet Count 167 140-450 10^3/uL Mean Platelet Volume 7.7 6.9-10.8 fL Neutrophils (%) (Auto) 66.7 37.0-80.0 % Lymphocytes (%) (Auto) 21.9 10.0-50.0 % Monocytes (%) (Auto) 9.7 0.0-12.0 % Eosinophils (%) (Auto) 1.4 0.0-7.0 % Basophils (%) (Auto) 0.3 0.0-2.0 % Neutrophils # (Auto) 4.0 1.6-8.6 10 ^3/uL Lymphocytes # (Auto) 1.3 0.4-5.4 10 ^3/uL Monocytes # (Auto) 0.6 0-1.3 10 ^3/uL Eosinophils # (Auto) 0.1 0-0.8 10 ^3/uL Basophils # (Auto) 0 0-0.2 10 ^3/uL Nucleated Red Blood Cells 0.1 % B-Type Natriuretic Peptide 355.01 0-100 pg/mL Sodium Level 137 136-145 mmol/L Potassium Level 5.3 H 3.5-5.1 mmol/L Chloride Level 106 98-107 mmol/L Carbon Dioxide Level 24 20-31 mmol/L Anion Gap 7 5-15 Blood Urea Nitrogen 20 9-23 mg/dL Creatinine 1.01 0.700-1.30 mg/dL Glomerular Filtration Rate Calc 88 >90 mL/min BUN/Creatinine Ratio 19.8 10.0-20.0 Serum Glucose 134 H 74-106 mg/dL Calcium Level 9.4 8.7-10.4 mg/dL Total Bilirubin 1.2 H 0.2-1.0 mg/dL Aspartate Amino Transferase (AST) 77 H 13-40 U/L Alanine Aminotransferase (ALT) 87 H 7-40 U/L Alkaline Phosphatase 113 46-116 U/L Total Protein 6.4 5.7-8.2 g/dL Albumin 4.1 3.2-4.8 g/dL Plasma/Serum Blood Alcohol < 3.0 <10 mg/dL Prothrombin Time 12.3 H 9.3-11.8 sec Prothrombin Time INR 1.18 H 0.9-1.15 Activated Partial Thromboplast Time 28.2 24.5-34.5 SEC Magnesium Level 1.9 1.6-2.6 mg/dL Triglycerides Level 127 < 150 mg/dL Cholesterol Level 187 < 200 mg/dL LDL Cholesterol 128 H < 100 mg/dL HDL Cholesterol 49 40-59 mg/dL Thyroid Stimulating Hormone (TSH) 1.71 0.55-4.78 uIU/mL Assessment Paroxysmal atrial fibrillation with rapid ventricular rate (Stage IIIa). Acute on chronic decompensated HFimpEF, NYHA Class II. Nonischemic cardiomyopathy. History of direct current cardioversion. Recent dietary indiscretions/alcohol use. Obstructive sleep apnea on CPAP HS. Morbid obesity. Plan/Recommendation I agree with your ongoing assessment and care of plan. Patient has been seen by Susana Cherry NP on my behalf. We have discussed the plan with the patient. At time of assessment the patient was found in an atrial fibrillation rhythm with a rapid ventricular rate in the 140s bpm and an associated systolic blood pressure of 88 mmHg. Load on digoxin therapy and initiate magnesium IV. Continue amiodarone drip per pharmacy protocol. He may be a candidate for DCCV in the setting of further hemodynamic instability for which we will continue to monitor closely. Hold all blood pressure medications and aggressive diuretic therapy given acute hypotension. Continue DOAC therapy with Eliquis if no further bleeding noted. Monitor ECG changes closely. Notify of any acute hemodynamic changes, worsening hypotension, or worsening tachyarrhythmia. Initiate CPAP HS. Rest of plan per clinical course. Additional plan as per the hospital course. Plan discussed with: Patient NYHA Physical activity limitations: Class2(Slight)fatigue,sob Date of Service: Jun 02, 2025 Billing Provider: SYLVESTER STOKES MD Cardiology Common Codes: [id number] SYLVESTER STOKES MD Jun 02, 2025 23:27
[2025-06-02] MEDS: ALPRAZolam 0.25 MG TAB PO PRN (23:44)
[2025-06-03] VITALS (102 sets, daily range): BP systolic 79–136; BP diastolic 28–94; PULSE 97–154; RESP 8–26; TEMP 97.5–98.6; O2SAT 87–98
[2025-06-03] MEDS: PHENYLEPHRINE IV 250 ML IV SCH (01:25)
[2025-06-03 05:23] LABS: Hematocrit 35.2 % (41.0-53.0); Hemoglobin 11.9 g/dL (13.5-17.5); Mean Corpuscular Hemoglobin 33.8 pg (28.0-32.0); Mean Corpuscular Volume 100.1 fL (80.0-100.0); Nucleated Red Blood Cells % 0.4 %
[2025-06-03 05:25] LABS: Albumin 4.2 g/dL (3.2-4.8); Alkaline Phosphatase 109 U/L (46-116); Anion Gap 8 (5-15); BUN/Creatinine Ratio 16.2 (10.0-20.0); Bilirubin, Total 1.2 mg/dL (0.2-1.0); Blood Urea Nitrogen 18 mg/dL (9-23); Calcium 9.0 mg/dL (8.7-10.4); Carbon Dioxide 27 mmol/L (20-31); Chloride 104 mmol/L (98-107); Glucose 101 mg/dL (74-106); Potassium 4.4 mmol/L (3.5-5.1); Sodium 139 mmol/L (136-145); Total Protein 6.5 g/dL (5.7-8.2)
[2025-06-03 05:27] LABS: Alanine Aminotransferase 82 U/L (7-40)
[2025-06-03] MEDS ORDERED: FUROSEMIDE 40 MG/4 ML VIAL IV SCH (08:00)
--- NOTE | 2025-06-03 08:55 | DVHPN2 ---
Consult Progress Note Date Seen: Jun 03, 2025 Subjective Review of Systems: CVS:Normal, RESPIRATORY:Normal, :Abnormal, NEURO:Normal Other Systems: C/o left testicular pain. Notified of NSVT x 1 event of 3 beats last night Objective vital signs Vital Sign Date Time Temp Pulse Resp B/P (MAP) Pulse Ox O2 Delivery O2 Flow Rate FiO2 06/03/25 07:54 95 Nasal Cannula* 2 28 06/03/25 07:45 119 16 103/63 (76) 06/03/25 04:01 97.5 97.5 Total Intake and Output 06/02/25 06/02/25 06/03/25 15:00 23:00 07:00 Intake Total 99.99 ml 166.62 ml 973.28 ml Output Total 1400 ml 200 ml 1400 ml Balance -1300.01 ml -33.38 ml -426.72 ml medications Current Medications Medications Dose Ordered Sig/Olesya Route Start Time Stop Time Status Last Admin Dose Admin Acetaminophen/ Hydrocodone Bitart 1 tab Q4HP PRN PO 06/02/25 15:30 Ondansetron HCl 4 mg Q4HP PRN IV 06/02/25 15:30 Docusate Sodium 100 mg BIDPRN PRN PO 06/02/25 15:30 Acetaminophen 650 mg Q6HP PRN PO 06/02/25 15:30 Nitroglycerin 0.4 mg Q5MINP PRN SL 06/02/25 15:30 Morphine Sulfate 2 mg Q30M PRN IV 06/02/25 15:30 Apixaban 5 mg BID PO 06/02/25 22:00 Empaglifozin 10 mg DAILY PO 06/03/25 10:00 Patient Own Medication 1 mg PRN PO 06/02/25 15:45 UNV Patient Own Medication 400 mg BID PO 06/02/25 22:00 UNV Patient Own Medication 30 mg QPM PO 06/02/25 18:00 UNV Hydromorphone HCl 0.5 mg Q4HPRN PRN IV 06/02/25 15:45 06/03/25 04:52 0.5 MG Folic Acid 1 mg DAILY PO 06/03/25 10:00 Thiamine HCl 100 mg DAILY PO 06/03/25 10:00 Multivitamins 1 tab DAILY PO 06/03/25 10:00 Lorazepam 1 mg Q2HP PRN IV 06/02/25 16:00 Furosemide 20 mg BIDD IV 06/02/25 18:00 Magnesium Oxide 400 mg BID PO 06/02/25 22:00 06/02/25 21:55 400 MG Temazepam 30 mg QHSP PRN PO 06/02/25 16:15 06/02/25 22:32 30 MG Alprazolam 1 mg PRN PRN PO 06/02/25 16:15 Cancel Alprazolam 1 mg Q6HP PRN PO 06/02/25 17:15 Cancel Phenylephrine HCl 250 ml @ 30 mls/hr Q8H20M IV 06/02/25 19:30 06/03/25 05:45 67.5 MLS/HR Digoxin 125 mcg DAILY IV 06/03/25 10:00 Alprazolam 0.25 mg Q4HPRN PRN PO 06/02/25 19:30 06/03/25 05:45 0.25 MG Examination: GENERAL:Abnormal (Anxious), LUNGS:Abnormal (Bibasilar crackles), CVS:Abnormal (A-fib with RVR 100s-130s bpm), NEURO:Normal laboratory and microbiology Laboratory Tests 06/03/25 04:50 Test 06/03/25 04:50 Range/Units Serum Glucose 101 74-106 mg/dL Problem List/Assessment/Plan Problem List/Assessment/Plan Paroxysmal atrial fibrillation with rapid ventricular rate (Stage IIIa), uncontrolled rate Acute on chronic decompensated HFimpEF, NYHA Class II Nonischemic cardiomyopathy Non-sustained ventricular tachycardia (3 beats) History of direct current cardioversion Recent dietary indiscretions/alcohol use Obstructive sleep apnea on CPAP HS Morbid obesity Plan/Recommendation (Dr. Laws) Continues in an atrial fibrillation rhythm with a rapid ventricular rate up to the 130s bpm, transition to quad concentration neosyphrine drip, and continue amiodarone drip per pharmacy protocol. Loaded on digoxin therapy 1,000 mcg, continue daily maintenance dose. Replete electrolytes as necessary, K>4 and Mg>2. He may be a candidate for DCCV in the setting of further hemodynamic instability for which we will continue to monitor closely. Hold all blood pressure medications and aggressive diuretic therapy given acute hypotension. Continue DOAC therapy with Eliquis if no further bleeding noted. Monitor ECG changes closely. Notify of any acute hemodynamic changes, worsening hypotension, or worsening tachyarrhythmia. Continue CPAP HS. Rest of plan per clinical course. Thank you for allowing us to participate in this patient's care. Please call if you have any questions or concerns. Critical care time: 35 min. This medical document was created using an electronic medical record system with voice recognition software and computerized dictation system. Although this document has been carefully reviewed, there might still be some phonetic and typographical errors. Occasional wrong-word or ``sound-alike substitutions may have occurred due to the inherent limitations of voice recognition software. These areas are purely typographical due to imperfections of the software programs and do not reflect any compromise in the patient's medical care. Please read the chart carefully and recognize, using context, where these substitutions have occurred. Plan discussed with: Patient, Other Date of Service: Jun 03, 2025 Billing Provider: MIK PRATT Cardiology Common Codes: [id number] CARE 30-74 MIN MIK PRATT Jun 03, 2025 08:55
[2025-06-03] MEDS: PHENYLEPHRINE INJ 80 MG in SODIUM CHL 0.9% 242 ML IV SCH ×2 (09:00→12:23)
[2025-06-03] MEDS: FUROSEMIDE 20 MG/2 ML VIAL IV ONE (09:12)
[2025-06-03] MEDS: THIAMINE HCL 100 MG TAB PO SCH (09:13)
[2025-06-03] MEDS: EMPAGLIFLOZIN 10 MG TAB PO SCH (09:13)
[2025-06-03] MEDS: FOLIC ACID 1 MG TAB PO SCH (09:13)
[2025-06-03] MEDS: MULTIPLE VITAMIN TAB PO SCH (09:14)
[2025-06-03] MEDS: DIGOXIN (250MCG/ML) 2 ML AMPULE IV SCH (09:18)
--- NOTE | 2025-06-03 10:48 | ECG ---
[facility] Test Date: 2025-06-02 Test Time: 15:25:01 Pat Name: ELVIS LEDEZMA Department: ed Room: 0261 Gender: M Proctologist: amber : 1970 Requested By: MAME FLEMING Order Number: [id number] Reading MD: Perico Laws Measurements Intervals [place] Rate: 151 P: 0 TX: 0 QRS: -57 QRSD: 93 T: 37 QT: 301 QTc: 478 Interpretive Statements Atrial fibrillation Left anterior fascicular block Low voltage, precordial leads Abnormal R-wave progression, early transition Consider anterior infarct Baseline wander in lead(s) V4 Electronically Signed On 06-04-2025 19:03:40 PDT by Perico Laws Please click the below link to view image of tracing.
--- NOTE | 2025-06-03 11:58 | DVHPN2 ---
Progress Note Date Seen: Jun 03, 2025 Medical Necessity Reason Pt with a Central, PICC or Fol: No Subjective Patient reports: No new complaints Review of Systems: HEENT:Normal, CVS:Normal, RESPIRATORY:Normal, GI:Normal, :Normal, MSK:Normal, NEURO:Normal Objective vital signs Vital Sign Date Time Temp Pulse Resp B/P (MAP) Pulse Ox O2 Delivery O2 Flow Rate FiO2 06/03/25 11:30 123 15 106/61 (76) 94 06/03/25 08:00 Nasal Cannula* 2 28 06/03/25 08:00 97.8 97.8 Total Intake and Output 06/02/25 06/02/25 06/03/25 15:00 23:00 07:00 Intake Total 99.99 ml 166.62 ml 973.28 ml Output Total 1400 ml 200 ml 1400 ml Balance -1300.01 ml -33.38 ml -426.72 ml medications Current Medications Medications Dose Ordered Sig/Olesya Route Start Time Stop Time Status Last Admin Dose Admin Acetaminophen/ Hydrocodone Bitart 1 tab Q4HP PRN PO 06/02/25 15:30 Ondansetron HCl 4 mg Q4HP PRN IV 06/02/25 15:30 Docusate Sodium 100 mg BIDPRN PRN PO 06/02/25 15:30 Acetaminophen 650 mg Q6HP PRN PO 06/02/25 15:30 Nitroglycerin 0.4 mg Q5MINP PRN SL 06/02/25 15:30 Morphine Sulfate 2 mg Q30M PRN IV 06/02/25 15:30 Apixaban 5 mg BID PO 06/02/25 22:00 06/03/25 09:13 5 MG Empaglifozin 10 mg DAILY PO 06/03/25 10:00 06/03/25 09:13 10 MG Patient Own Medication 1 mg PRN PO 06/02/25 15:45 UNV Patient Own Medication 400 mg BID PO 06/02/25 22:00 UNV Patient Own Medication 30 mg QPM PO 06/02/25 18:00 UNV Hydromorphone HCl 0.5 mg Q4HPRN PRN IV 06/02/25 15:45 06/03/25 09:13 0.5 MG Folic Acid 1 mg DAILY PO 06/03/25 10:00 06/03/25 09:13 1 MG Thiamine HCl 100 mg DAILY PO 06/03/25 10:00 06/03/25 09:13 100 MG Multivitamins 1 tab DAILY PO 06/03/25 10:00 06/03/25 09:14 1 TAB Lorazepam 1 mg Q2HP PRN IV 06/02/25 16:00 Furosemide 20 mg BIDD IV 06/02/25 18:00 Magnesium Oxide 400 mg BID PO 06/02/25 22:00 06/03/25 09:13 400 MG Temazepam 30 mg QHSP PRN PO 06/02/25 16:15 06/02/25 22:32 30 MG Alprazolam 1 mg PRN PRN PO 06/02/25 16:15 Cancel Alprazolam 1 mg Q6HP PRN PO 06/02/25 17:15 Cancel Digoxin 125 mcg DAILY IV 06/03/25 10:00 06/03/25 09:18 125 MCG Alprazolam 0.25 mg Q4HPRN PRN PO 06/02/25 19:30 06/03/25 10:43 0.25 MG Phenylephrine HCl 80 mg/Sodium Chloride 250 ml @ 1.875 mls/ hr Q24H IV 06/03/25 12:00 UNV Examination: GENERAL:Normal, HEENT:Normal, NECK:Normal, LUNGS:Normal, CVS:Normal, CVS:Abnormal (irregula), ABDOMEN:Normal, MSK:Normal, MSK:Abnormal (edema++), SKIN:Normal, NEURO:Normal, :Normal laboratory and microbiology Laboratory Tests 06/03/25 04:50 Test 06/03/25 04:50 Range/Units Serum Glucose 101 74-106 mg/dL Problem List/Assessment/Plan Problem List/Assessment/Plan #1 a fib with rvr: on amiodarone, dig #2 shock likely cardiac: on pressors #3 acute on chronic diastolic heart failure: lasix iv #4 morbid obesity #5 alcohol liver disease #6 sleep apnea: on bipap #7 scrotal/limb bleeding: monitor Plan discussed with: Patient My Orders My Orders Orders - AYDEN PATRICK MD Procedure Category Date Status Time * Picc Line Consult CONS 06/03/25 Transmitted 11:17 Urinalysis LAB 06/03/25 Uncollected 11:49 Complete Blood Count LAB 06/04/25 Verified 06:00 Comprehensive LAB 06/04/25 Verified Metabolic Panel 06:00 Chest Portable XY 06/04/25 Verified 06:00 Critical Care Time (mins): 48 (critical care time excluding procedures was 48mins) Date of Service: Jun 03, 2025 Billing Provider: AYDEN PATRICK MD Common Visit Codes: [id number] CARE 30-74 MIN AYDEN PATRICK MD Jun 03, 2025 11:58
[2025-06-03] MEDS: LIDOCAINE 1% (LOCAL ANESTH.) PF 5ml SDV ID ONE (12:30)
--- NOTE | 2025-06-03 12:53 | DVH ---
INDICATION: PICC LINE PLACEMENT TECHNIQUE: Frontal view of the chest. COMPARISON: XY CHEST PORTABLE on DOS: 06/02/25, XY CHEST PORTABLE on DOS: 01/22/24, XY CHEST PORTABLE on DOS: 04/08/23, XY CHEST PORTABLE on DOS: 03/31/23, XY CHEST PORTABLE on DOS: 03/30/23 FINDINGS: Right PICC tip in the SVC. Cardiomegaly. There is no evidence of pleural disease. Increased intersti tial opacities. The bony structures of the chest are intact without fracture. IMPRESSION: 1. Cardiomegaly with CHF.
[2025-06-03 15:52] LABS: Urine Protein, UAD Negative (Negative)
--- NOTE | 2025-06-03 19:13 | DVHSR ---
APPROVED REPORT EXAM: LIMITED Two-dimensional and M-mode echocardiogram with Doppler and color Doppler. Blood Pressure: 103/63 mmHg INDICATION acute on chronic heart failure RISK FACTORS Obesity: Height: 5'9, Weight: 315 DIMENSIONS LVDd4.6 (3.8-5.7cm)LA (2D)3.8 (1.9-4.0cm)Aortic Root3.7 (2.0-3.7cm) LVDs3.8 (2.5-4.0cm)LA (MM) (1.9-4.0cm)Aortic Cusp Exc2.3 (1.5-2.0cm) EF (%) 40.0 (55-70%)Rt. Atrium4.2 (1.9-4.0cm)Asc. Aorta cm IVSd1.1 (0.7-1.1cm)RV (D)4.2 (1.8-2.4cm) PWd1.4 (0.7-1.1cm) Mitral Valve MitralMitral Stenosis E wave0.77m/sMV Mean GR.1mmHg A wavem/sMV Peak GR.26mmHg E/A ratio0.02D MVAcm2 Aortic Valve Aortic ValveAortic Stenosis V10.77m/Jamey Mean GR.3mmHg V21.16m/Jamey Peak GR.5mmHg LVOT Diameter2.6 (1.8-2.4cm)Doppler AVA3.52cm2 Pulmonic Valve V20.93m/s Tricuspid Valve TR Velocity2.57m/s [id number] Other Information Quality : Technically LimitedRhythm : Technically limited study due to patient position.body habitus. Conclusion Technically difficult study. Undetermined rhythm. Atrial fibrillation with a rapid ventricular response. Left atrial enlargement with mild aortic root enlargement. RV enlargement. Right atrial enlargement as well. Valves appear to be structurally normal. Left ventricular function appears mildly diminished at about 40% with normal RV function. Abnormal s eptal motion due to bundle branch block. Dopplers unremarkable. No pericardial effusion masses or vegetations. Small pericardial fat pad noted
[2025-06-03] MEDS: SODIUM CHLOR 0.9% PF (SALINE LOCK) 10ML VIAL/SYR IV SCH (20:57)
[2025-06-03] MEDS: PHENYLEPHRINE IV 250 ML IV ONE (22:34)
[2025-06-03] MEDS: PHENYLEPHRINE HCL 10 MG/ML VL ONE (22:34)
[2025-06-04] VITALS (91 sets, daily range): BP systolic 80–115; BP diastolic 40–88; PULSE 74–147; RESP 9–24; TEMP 97.8–98.9; O2SAT 90–97
--- NOTE | 2025-06-04 05:45 | DVH ---
CHEST RADIOGRAPH Indication: chf Technique: Single frontal view of the chest was obtained Comparison: XY CHEST PORTABLE on DOS: 06/03/25 FINDINGS: Lines and Tubes: Right PICC tip in the superior cavoatrial junction. Lungs: Pulmonary interstitial prominence. No focal consolidation. Pleura: No effusion. No pneumothorax. Cardiomediastinal contours: Cardiomegaly. Bones: No acute osseous abnormality. IMPRESSION: 1. Pulmonary vascular congestion. 2. Cardiomegaly.
[2025-06-04 05:51] LABS: Hematocrit 34.7 % (41.0-53.0); Hemoglobin 11.5 g/dL (13.5-17.5); Mean Corpuscular Hemoglobin 33.6 pg (28.0-32.0); Mean Corpuscular Volume 100.9 fL (80.0-100.0); Nucleated Red Blood Cells % 0.1 %
[2025-06-04 06:09] LABS: Albumin 4.3 g/dL (3.2-4.8); Alkaline Phosphatase 106 U/L (46-116); Anion Gap 11 (5-15); BUN/Creatinine Ratio 15.6 (10.0-20.0); Blood Urea Nitrogen 15 mg/dL (9-23); Calcium 9.9 mg/dL (8.7-10.4); Carbon Dioxide 28 mmol/L (20-31); Chloride 102 mmol/L (98-107); Potassium 3.9 mmol/L (3.5-5.1); Sodium 141 mmol/L (136-145); Total Protein 6.7 g/dL (5.7-8.2)
[2025-06-04 06:14] LABS: Alanine Aminotransferase 77 U/L (7-40); Bilirubin, Total 1.3 mg/dL (0.2-1.0); Glucose 134 mg/dL (74-106)
[2025-06-04] MEDS: PROPOFOL 10 MG/ML 20 ML IV ONE (07:45)
[2025-06-04] MEDS ORDERED: fentaNYL CITRATE 100 MCG/2 ML VL ONE (08:21)
[2025-06-04] MEDS ORDERED: METOCLOPRAMIDE HCL 5MG/ml INJ 2ml VIAL ONE (08:22)
[2025-06-04] MEDS ORDERED: ETOMIDATE (2MG/ML) 20ML VIAL IV ONE (08:22)
[2025-06-04] MEDS ORDERED: LIDOCAINE 2% (LOCAL ANESTH.) PF 5ml SDV ONE (08:22)
[2025-06-04] MEDS ORDERED: ONDANSETRON HCL 4 MG/2 ML VIAL ONE (08:22)
[2025-06-04] MEDS ORDERED: MIDAZOLAM HCL 2MG/2ML 2ml VIAL (1mg/ml) ONE (08:22)
[2025-06-04] MEDS: LIDOCAINE VISCOUS 2% 15ML UD ONE (08:25)
[2025-06-04] MEDS ORDERED: PROPOFOL 10 MG/ML 20 ML IV ONE (08:49)
[2025-06-04] MEDS: METOCLOPRAMIDE HCL 5MG/ml INJ 2ml VIAL IV ONE (09:30)
[2025-06-04] MEDS: ONDANSETRON HCL 4 MG/2 ML VIAL IV ONE (09:30)
--- NOTE | 2025-06-04 09:33 | DVHOP2 ---
Operative Report - 2 Report Details Date: 06/04/25 Preop Diagnosis: Atrial fibrillation. Uncontrolled. Rapid ventricular response. Postop Diagnosis: Atrial fibrillation. Successful DC cardioversion and transesophageal echocardiogram Surgeon: Pj Laws MD Anesthesiologist: CARLOS. Operating room 5. Anesthesia: Mac Consent: The patient was informed of the risks and benefits of the procedure. These include but are not limited to complications of anesthesia, postoperative infection, incomplete relief of symptoms, recurrence of symptoms, damage to blood vessels, nerves and tendons, deep venous thrombosis, pulmonary embolism and possible need for repeat surgery in the future. Complications: No complications Findings: Normal transesophageal echocardiogram. Rapid atrial fibrillation. Indications for Surgery: Rapid atrial fibrillation. Congestive heart failure. Name of Procedure Performed Transesophageal echocardiogram. DC cardioversion. Procedure Details Procedure Details: Prior full informed consent obtained the patient was was taken to the operating room. Placed in left lateral and semi-Armenta position. The patient was given deep sedation by nurse mail order biller. Patient remained hemodynamically stable. Transesophageal probe was passed without difficulty. Standard views obtained. Technically good study. Rapid atrial fibrillation. Concentric LVH with left atrial enlargement. Right atrial and mild RV enlargement. Valves appear to be structurally normal. Left ventricular systolic performance appears preserved at proximally 50% with normal RV function. Mild tricuspid and mitral insufficiency. No pericardial effusion masses or vegetations. No shunting noted. The atrial appendage is clear without thrombus present. Subsequent to obtaining transesophageal echocardiogram patient was deemed appropriate for DC cardioversion. Initial pads were placed. Under deep sedation the patient received a 1st DC cardioversion shock at 150 joules. This was unsuccessful. A 2nd attempt at 200 joules was then performed. A 3rd attempt at 400 joules was also repeated. This was unsuccessful. We placed a 2nd set of pads in the anterior-posterior position. Under synchronized cardioversion with simultaneous defibrillations the patient received 400 joules. This was successful in converting him to a sinus tachycardia. The patient received5 mg of labetalol IV. He remained hemodynamically stable. He remained neurologically intact. He woke up rather expeditiously subsequent to the electrical cardioversion. He was asymptomatic for the most part. Impression successful HEATH without findings indicating thrombus. Normal LV function as indicated above. Successful DC cardioversion with for sequence shocks at 150, 200, 200 and 400 joules. Recommendations continue with beta blockers and anticoagulation. Condition Good Disposition Still a Patient Date of Service: Jun 04, 2025 Billing Provider: PJ LAWS Sr., MD Cardiology Common Codes: [id number] INP/OBS CARE (High) Cardiology Procedure Codes: 32168-EG CARDIOVERSION, 23684-MSP W/IMG DOC INCL PROB ACQ PJ LAWS Sr., MD Jun 04, 2025 09:32
[2025-06-04] MEDS: HYDROmorphone HCL 2 MG/ML VL/or syr IV PRN (09:35)
[2025-06-04] MEDS: FUROSEMIDE 20 MG/2 ML VIAL IV ONE (10:34)
--- NOTE | 2025-06-04 11:13 | DVHPN2 ---
Progress Note Date Seen: Jun 04, 2025 Medical Necessity Reason Pt with a Central, PICC or Fol: No Subjective Patient reports: No new complaints Review of Systems: HEENT:Normal, CVS:Normal, RESPIRATORY:Normal, GI:Normal, :Normal, MSK:Normal, NEURO:Normal Objective vital signs Vital Sign Date Time Temp Pulse Resp B/P (MAP) Pulse Ox O2 Delivery O2 Flow Rate FiO2 06/04/25 10:56 80 06/04/25 10:34 97/41 06/04/25 10:10 17 96 06/04/25 09:03 Nasal Cannula 4.0 96 06/04/25 09:03 97.9 97.9 Total Intake and Output 06/03/25 06/03/25 06/04/25 15:00 23:00 07:00 Intake Total 369.530 ml 988.280 ml 508.275 ml Output Total 2075 ml 725 ml Balance 369.530 ml -1086.720 ml -216.725 ml medications Current Medications Medications Dose Ordered Sig/Olesya Route Start Time Stop Time Status Last Admin Dose Admin Acetaminophen/ Hydrocodone Bitart 1 tab Q4HP PRN PO 06/02/25 15:30 Ondansetron HCl 4 mg Q4HP PRN IV 06/02/25 15:30 Docusate Sodium 100 mg BIDPRN PRN PO 06/02/25 15:30 Acetaminophen 650 mg Q6HP PRN PO 06/02/25 15:30 Nitroglycerin 0.4 mg Q5MINP PRN SL 06/02/25 15:30 Morphine Sulfate 2 mg Q30M PRN IV 06/02/25 15:30 Apixaban 5 mg BID PO 06/02/25 22:00 06/04/25 10:58 5 MG Empaglifozin 10 mg DAILY PO 06/03/25 10:00 06/04/25 10:58 10 MG Patient Own Medication 1 mg PRN PO 06/02/25 15:45 UNV Patient Own Medication 400 mg BID PO 06/02/25 22:00 UNV Patient Own Medication 30 mg QPM PO 06/02/25 18:00 UNV Hydromorphone HCl 0.5 mg Q4HPRN PRN IV 06/02/25 15:45 06/04/25 04:39 0.5 MG Folic Acid 1 mg DAILY PO 06/03/25 10:00 06/04/25 10:35 1 MG Thiamine HCl 100 mg DAILY PO 06/03/25 10:00 06/04/25 10:35 100 MG Multivitamins 1 tab DAILY PO 06/03/25 10:00 06/04/25 10:36 1 TAB Lorazepam 1 mg Q2HP PRN IV 06/02/25 16:00 Furosemide 20 mg BIDD IV 06/02/25 18:00 06/03/25 18:01 20 MG Magnesium Oxide 400 mg BID PO 06/02/25 22:00 06/04/25 10:36 400 MG Temazepam 30 mg QHSP PRN PO 06/02/25 16:15 06/03/25 21:11 30 MG Alprazolam 1 mg PRN PRN PO 06/02/25 16:15 Cancel Alprazolam 1 mg Q6HP PRN PO 06/02/25 17:15 Cancel Digoxin 125 mcg DAILY IV 06/03/25 10:00 06/03/25 09:18 125 MCG Alprazolam 0.25 mg Q4HPRN PRN PO 06/02/25 19:30 06/04/25 00:50 0.25 MG Phenylephrine HCl 80 mg/Sodium Chloride 250 ml @ 1.875 mls/ hr Q24H IV 06/03/25 12:00 06/03/25 22:33 16.875 MLS/HR Sodium Chloride 10 ml QSHIFT@10,22 IV 06/03/25 22:00 06/04/25 10:35 10 ML Examination: GENERAL:Normal, HEENT:Normal, NECK:Normal, LUNGS:Normal, CVS:Normal, ABDOMEN:Normal, MSK:Normal, SKIN:Normal, NEURO:Normal, :Normal laboratory and microbiology Laboratory Tests 06/04/25 04:40 Test 06/04/25 04:40 Range/Units Serum Glucose 134 H 74-106 mg/dL Microbiology Date/Time Source Procedure Growth Status 06/02/25 18:00 Nose MRSA Screen - Final Complete Problem List/Assessment/Plan Problem List/Assessment/Plan #1 a fib with rvr s/p cardioversion: on amiodarone #2 shock likely cardiac: on pressors #3 acute on chronic diastolic heart failure: lasix iv #4 morbid obesity #5 alcohol liver disease #6 sleep apnea: on bipap #7 scrotal/limb bleeding: monitor Plan discussed with: Patient My Orders My Orders Orders - AYDEN PATRICK MD Procedure Category Date Status Time * Picc Line Consult CONS 06/03/25 Transmitted 11:17 Chest Portable XY 06/04/25 Resulted 06:00 Chest Portable XY 06/03/25 Resulted 12:21 Nursing Protocol Picc MYRANDA 06/03/25 In Process 12:26 Change Dressing Prn MYRANDA 06/03/25 In Process 12:26 Sodium Chloride Lock PHA 06/03/25 In Process (Saline Lock Ns) 22:00 Do Not Use Picc For [facility] 06/03/25 In Process Blood Cult 12:26 May Draw Blood From [facility] 06/03/25 In Process Picc 12:26 Ok To Use Picc [facility] 06/03/25 In Process 12:26 Change Picc Dressing [facility] 06/03/25 In Process Q7 Days 12:26 Apply: [facility] 06/03/25 In Process 11:40 Critical Care Time (mins): 37 (critical care time 37 mins) Date of Service: Jun 04, 2025 Billing Provider: AYDEN PATRICK MD Common Visit Codes: [id number] CARE 30-74 MIN AYDEN PATRICK MD Jun 04, 2025 11:13
--- NOTE | 2025-06-04 12:21 | DVHPN2 ---
Consult Progress Note Subjective Other Systems: Patient in normal sinus rhythm at time of assessment. Objective vital signs Vital Sign Date Time Temp Pulse Resp B/P (MAP) Pulse Ox O2 Delivery O2 Flow Rate FiO2 06/04/25 12:00 12 96 Bi-Pap+ 0 30 30 06/04/25 11:45 88 06/04/25 10:34 97/41 06/04/25 09:03 97.9 97.9 Total Intake and Output 06/03/25 06/03/25 06/04/25 15:00 23:00 07:00 Intake Total 369.530 ml 988.280 ml 508.275 ml Output Total 2075 ml 725 ml Balance 369.530 ml -1086.720 ml -216.725 ml medications Current Medications Medications Dose Ordered Sig/Olesya Route Start Time Stop Time Status Last Admin Dose Admin Acetaminophen/ Hydrocodone Bitart 1 tab Q4HP PRN PO 06/02/25 15:30 Ondansetron HCl 4 mg Q4HP PRN IV 06/02/25 15:30 Docusate Sodium 100 mg BIDPRN PRN PO 06/02/25 15:30 Acetaminophen 650 mg Q6HP PRN PO 06/02/25 15:30 Nitroglycerin 0.4 mg Q5MINP PRN SL 06/02/25 15:30 Morphine Sulfate 2 mg Q30M PRN IV 06/02/25 15:30 Apixaban 5 mg BID PO 06/02/25 22:00 06/04/25 10:58 5 MG Empaglifozin 10 mg DAILY PO 06/03/25 10:00 06/04/25 10:58 10 MG Patient Own Medication 1 mg PRN PO 06/02/25 15:45 UNV Patient Own Medication 400 mg BID PO 06/02/25 22:00 UNV Patient Own Medication 30 mg QPM PO 06/02/25 18:00 UNV Hydromorphone HCl 0.5 mg Q4HPRN PRN IV 06/02/25 15:45 06/04/25 04:39 0.5 MG Folic Acid 1 mg DAILY PO 06/03/25 10:00 06/04/25 10:35 1 MG Thiamine HCl 100 mg DAILY PO 06/03/25 10:00 06/04/25 10:35 100 MG Multivitamins 1 tab DAILY PO 06/03/25 10:00 06/04/25 10:36 1 TAB Lorazepam 1 mg Q2HP PRN IV 06/02/25 16:00 Furosemide 20 mg BIDD IV 06/02/25 18:00 06/03/25 18:01 20 MG Magnesium Oxide 400 mg BID PO 06/02/25 22:00 06/04/25 10:36 400 MG Temazepam 30 mg QHSP PRN PO 06/02/25 16:15 06/03/25 21:11 30 MG Alprazolam 1 mg PRN PRN PO 06/02/25 16:15 Cancel Alprazolam 1 mg Q6HP PRN PO 06/02/25 17:15 Cancel Alprazolam 0.25 mg Q4HPRN PRN PO 06/02/25 19:30 06/04/25 11:34 0.25 MG Phenylephrine HCl 80 mg/Sodium Chloride 250 ml @ 1.875 mls/ hr Q24H IV 06/03/25 12:00 06/03/25 22:33 16.875 MLS/HR Sodium Chloride 10 ml QSHIFT@10,22 IV 06/03/25 22:00 06/04/25 10:35 10 ML Examination: GENERAL:Normal, CVS:Normal, NEURO:Normal laboratory and microbiology Laboratory Tests 06/04/25 04:40 Test 06/04/25 04:40 Range/Units Serum Glucose 134 H 74-106 mg/dL Problem List/Assessment/Plan Problem List/Assessment/Plan Paroxysmal atrial fibrillation with rapid ventricular rate (Stage IIIa) s/p HEATH with direct current cardioversion, now NSR Acute on chronic decompensated HFimpEF, NYHA Class II Nonischemic cardiomyopathy Non-sustained ventricular tachycardia (3 beats) History of direct current cardioversion Recent dietary indiscretions/alcohol use Obstructive sleep apnea on CPAP HS Morbid obesity Plan/Recommendation (Dr. Laws): Case discussed with Dr. Laws. The patient underwent a successful transesophageal echocardiogram with direct current cardioversion today. The patient is now in normal sinus rhythm. We will transition patient from IV amiodarone to oral amiodarone. Patient remains on vasopressor therapy with Mike- Synephrine BP support. We will recommend to titrate patient off of vasopressor as tolerated. [id number] VASc score: 1 point, HAS-BLED: 1 point. Continue with NOAC therapy, Eliquis. Consider rate control with beta-breanna once patient off of vasopressor therapy and with stable BP. Replete electrolytes as necessary, K>4 and Mg>2. Monitor ECG changes closely. Notify of any acute hemodynamic changes, worsening hypotension, or worsening tachyarrhythmia. Rest of plan per clinical course. Thank you for allowing us to participate in this patient's care. Please call if you have any questions or concerns. Critical care time: 35 min. This medical document was created using an electronic medical record system with voice recognition software and computerized dictation system. Although this document has been carefully reviewed, there might still be some phonetic and typographical errors. Occasional wrong-word or ``sound-alike substitutions may have occurred due to the inherent limitations of voice recognition software. These areas are purely typographical due to imperfections of the software programs and do not reflect any compromise in the patient's medical care. Please read the chart carefully and recognize, using context, where these substitutions have occurred. Plan discussed with: Patient, Other (Bedside RN) Date of Service: Jun 04, 2025 Billing Provider: JOHNNY BAXTER Common Visit Codes: [id number] CARE 30-74 MIN JOHNNY BAXTER Jun 04, 2025 12:21
[2025-06-04] MEDS: AMIODARONE HCL 200 MG TAB PO ONE (13:13)
[2025-06-04] MEDS: DIGOXIN 0.125 MG TAB PO ONE (13:34)
[2025-06-04] MEDS: AMIODARONE HCL 200 MG TAB PO SCH (21:44)
[2025-06-05] VITALS (83 sets, daily range): BP systolic 73–151; BP diastolic 43–88; PULSE 64–130; RESP 10–22; TEMP 97.8–98.9; O2SAT 90–98
[2025-06-05 06:16] LABS: Anion Gap 9 (5-15); Carbon Dioxide 29 mmol/L (20-31); Chloride 104 mmol/L (98-107); Potassium 4.2 mmol/L (3.5-5.1); Sodium 142 mmol/L (136-145)
[2025-06-05 06:18] LABS: Calcium 9.1 mg/dL (8.7-10.4)
[2025-06-05 06:22] LABS: BUN/Creatinine Ratio 18.4 (10.0-20.0); Blood Urea Nitrogen 16 mg/dL (9-23); Glucose 91 mg/dL (74-106)
[2025-06-05 06:23] LABS: Magnesium 2.4 mg/dL (1.6-2.6)
[2025-06-05] MEDS: HYDROcodone-ACET 5/325MG TAB PO PRN (06:28)
--- NOTE | 2025-06-05 08:06 | ECG ---
[facility] Test Date: 2025-06-04 Test Time: 08:51:45 Pat Name: ELVIS LEDEZMA Department: Room: 0261 A Gender: M [employer] Operator: MINA : 1970 Requested By: PJ HERNANDEZ Order Number: [id number] Reading MD: Measurements Intervals [place] Rate: 107 P: 55 DE: 148 QRS: -43 QRSD: 88 T: 87 QT: 338 QTc: 451 Interpretive Statements Undetermined rhythm Left axis deviation Low voltage QRS ST & T wave abnormality, consider anterolateral ischemia Please click the below link to view image of tracing.
--- NOTE | 2025-06-05 08:06 | ECG ---
[facility] Test Date: 2025-06-04 Test Time: 08:52:58 Pat Name: ELVIS LEDEZMA Department: Room: 0261 A Gender: M [employer] Artistic Director: MINA : 1970 Requested By: PJ HERNANDEZ Order Number: [id number] Reading MD: Measurements Intervals [place] Rate: 104 P: 32 [place]: 152 QRS: -44 QRSD: 86 T: 83 QT: 358 QTc: 470 Interpretive Statements Sinus tachycardia Left axis deviation Low voltage QRS ST & T wave abnormality, consider lateral ischemia Please click the below link to view image of tracing.
--- NOTE | 2025-06-05 09:11 | DVHPN2 ---
Subjective Reports inability to sleep., scrotal pain. Reviewed: Care Plan, H&P, Labs, Medications Changes from previous H/P or p: No Changes General: Per HPI Eyes: No Pain, No Vision change, No Conjunctivae inflammation, No Eyelid inflammation, No Other, No Redness ENT: No Ear pain, No Ear discharge, No Nose pain, No Nose discharge, No Nose congestion, No Mouth pain, No Mouth swelling, No Throat pain, No Throat swelling, No Other Cardiovascular: No Chest Pain, No Palpitations, No Orthopnea, No Paroxysmal Noc. Dyspnea, No Edema, No Lt Headedness, No Other Respiratory: No Cough, No Dry, No Shortness of breath, No SOB with excertion, No Wheezing, No Hemoptysis, No Pleuritic Pain, No Sputum, No Other Gastrointestinal: No Nausea, No Vomiting, No Abdominal Pain, No Diarrhea, No Constipation, No Melena, No Hematochezia, No Other Genitourinary: No Dysuria, No Frequency, No Incontinence, No Hematuria, No Retention, No Other Musculoskeletal: No other, No neck pain, No shoulder pain, No arm pain, No back pain, No hand pain, No leg pain, No foot pain Skin: No Rash, No Lesions, No Jaundice, No Bruising; Other (Variceal bleeding from scrotum) Objective Vitals Vital Signs Date Time Temp Pulse Resp B/P (MAP) Pulse Ox O2 Delivery O2 Flow Rate FiO2 06/05/25 08:48 81 15 131/79 06/05/25 06:46 96 06/05/25 06:00 Nasal Cannula* 4 36 06/05/25 04:00 97.9 97.9 Intake/Output Intake and Output 06/05/25 07:00 Intake Total 1521.420 ml Output Total 2620 ml Balance -1098.580 ml Intake Oral 1000 ml IV Total 521.420 ml Output Urine Total 2620 ml General Appearance: Alert, Oriented X3, Cooperative, mild distress HEENT: Atraumatic, PERRLA Lungs: Clear to auscultation, Normal air movement Cardiovascular: Normal S1, Normal S2 Abdomen: Normal bowel sounds, Soft, No tenderness, No hepatospenomegaly Genitourinary: No Apparent Abnormalities Musculoskeletal: Normal sensory function, Normal motor function Skin: Dry, Intact Psych/Mental Status: Mental status NL, Mood NL Medications Current Medications Medications Dose Ordered Sig/Olesya Route Start Time Stop Time Status Last Admin Dose Admin Acetaminophen/ Hydrocodone Bitart 1 tab Q4HP PRN PO 06/02/25 15:30 06/05/25 06:28 1 TAB Ondansetron HCl 4 mg Q4HP PRN IV 06/02/25 15:30 Docusate Sodium 100 mg BIDPRN PRN PO 06/02/25 15:30 Acetaminophen 650 mg Q6HP PRN PO 06/02/25 15:30 Nitroglycerin 0.4 mg Q5MINP PRN SL 06/02/25 15:30 Morphine Sulfate 2 mg Q30M PRN IV 06/02/25 15:30 Apixaban 5 mg BID PO 06/02/25 22:00 06/04/25 21:44 5 MG Empaglifozin 10 mg DAILY PO 06/03/25 10:00 06/04/25 10:58 10 MG Patient Own Medication 1 mg PRN PO 06/02/25 15:45 UNV Patient Own Medication 400 mg BID PO 06/02/25 22:00 UNV Patient Own Medication 30 mg QPM PO 06/02/25 18:00 UNV Hydromorphone HCl 0.5 mg Q4HPRN PRN IV 06/02/25 15:45 06/05/25 08:48 0.5 MG Folic Acid 1 mg DAILY PO 06/03/25 10:00 06/04/25 10:35 1 MG Thiamine HCl 100 mg DAILY PO 06/03/25 10:00 06/04/25 10:35 100 MG Multivitamins 1 tab DAILY PO 06/03/25 10:00 06/04/25 10:36 1 TAB Lorazepam 1 mg Q2HP PRN IV 06/02/25 16:00 Furosemide 20 mg BIDD IV 06/02/25 18:00 06/05/25 06:24 20 MG Magnesium Oxide 400 mg BID PO 06/02/25 22:00 06/04/25 21:44 400 MG Temazepam 30 mg QHSP PRN PO 06/02/25 16:15 06/04/25 21:44 30 MG Alprazolam 1 mg PRN PRN PO 06/02/25 16:15 Cancel Alprazolam 1 mg Q6HP PRN PO 06/02/25 17:15 Cancel Alprazolam 0.25 mg Q4HPRN PRN PO 06/02/25 19:30 06/05/25 06:43 0.25 MG Phenylephrine HCl 80 mg/Sodium Chloride 250 ml @ 1.875 mls/ hr Q24H IV 06/03/25 12:00 06/05/25 01:06 15 MLS/HR Sodium Chloride 10 ml QSHIFT@10,22 IV 06/03/25 22:00 06/04/25 21:46 10 ML Amiodarone HCl 200 mg Q12HR PO 06/04/25 22:00 06/04/25 21:44 200 MG Digoxin 0.125 mg DAILY PO 06/05/25 10:00 UNV Digoxin 0.125 mg DAILY PO 06/05/25 10:00 Laboratory Results Laboratory Tests 06/04/25 04:40 06/05/25 04:30 Chemistry Test 06/05/25 04:30 Calcium Level 9.1 mg/dL (8.7-10.4) Magnesium Level 2.4 mg/dL (1.6-2.6) Urinalysis Test 06/03/25 12:19 Urine Color Yellow (Yellow) Urine Clarity Clear (Clear) Urine pH 5.5 (5.0-9.0) Urine Specific [place] 1.017 (1.001-1.035) Urine Protein Negative (Negative) Urine Ketones Negative (Negative) Urine Blood Negative /uL (Negative) Urine Nitrite Negative (Negative) Urine Bilirubin Negative (Negative) Urine Urobilinogen Normal mg/dL (Negative) Urine Leukocyte Esterase Negative /uL (Negative) Urine RBC None seen /hpf (0 - 3) Urine Microscopic WBC /HPF (0-3) Urine Squamous Epithelial Cells None seen /hpf (<5) Urine Bacteria None seen /hpf (None Seen) Urine Glucose 4+ mg/dL (Normal) H Microbiology Microbiology Date/Time Source Procedure Growth Status 06/02/25 18:00 Nose MRSA Screen - Final Complete Labs and/or images reviewed: Labs reviewed by me, Image(s) reviewed by me Assessment/Plan Assessment/Plan Impression: -AFib with RVR -cardiogenic shock -acute on chronic diastolic heart failure -alcohol liver disease -obstructive sleep apnea -scrotal bleeding -pernicious drop in hematocrit Plan: -weaned off norepinephrine drip -continue IV diuresis -monitor for scrotal bleeding. No bleeding appreciated at this time -CPAP at night -monitor for signs of alcohol withdrawal -status post cardioversion. Continue rate/rhythm control with digoxin and amiodarone -patient restarted on Eliquis. Monitor for bleeding. Critical care time spent with patient discussing and formulating plan of care: 40 minutes. This does not include time spent performing procedures. This medical document was created using an electronic medical record system with [employer] dictation system. Although this document has been carefully reviewed, there may still be some phonetic and typographical errors. These areas are purely typographical due to imperfections of the software programs, and do not reflect any compromise in the patient's medical care. Plan discussed with: Patient, Other (RN) Date of Service: Jun 05, 2025 Billing Provider: CHITRA VAZ NP Common Visit Codes: [id number] CARE 30-74 MIN CHITRA VAZ NP Jun 05, 2025 09:11
[2025-06-05] MEDS ORDERED: DIGOXIN 0.125 MG TAB PO SCH (10:00)
[2025-06-05] MEDS: DIGOXIN 0.125 MG TAB PO SCH (11:23)
--- NOTE | 2025-06-05 13:15 | DVHPN2 ---
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 Patient is still on vasopressor support with phenylephrine Objective vital signs Vital Sign Date Time Temp Pulse Resp B/P (MAP) Pulse Ox O2 Delivery O2 Flow Rate FiO2 06/05/25 12:45 73 10 121/79 (93) 98 06/05/25 12:15 98.1 98.1 06/05/25 10:00 Nasal Cannula* 3 32 Total Intake and Output 06/04/25 06/04/25 06/05/25 15:00 23:00 07:00 Intake Total 662.67 ml 510.00 ml 348.750 ml Output Total 820 ml 300 ml 1500 ml Balance -157.33 ml 210.00 ml -1151.250 ml medications Current Medications Medications Dose Ordered Sig/Olesya Route Start Time Stop Time Status Last Admin Dose Admin Acetaminophen/ Hydrocodone Bitart 1 tab Q4HP PRN PO 06/02/25 15:30 06/05/25 06:28 1 TAB Ondansetron HCl 4 mg Q4HP PRN IV 06/02/25 15:30 Docusate Sodium 100 mg BIDPRN PRN PO 06/02/25 15:30 Acetaminophen 650 mg Q6HP PRN PO 06/02/25 15:30 Nitroglycerin 0.4 mg Q5MINP PRN SL 06/02/25 15:30 Morphine Sulfate 2 mg Q30M PRN IV 06/02/25 15:30 Apixaban 5 mg BID PO 06/02/25 22:00 06/05/25 09:04 5 MG Empaglifozin 10 mg DAILY PO 06/03/25 10:00 06/05/25 09:05 10 MG Patient Own Medication 1 mg PRN PO 06/02/25 15:45 UNV Patient Own Medication 400 mg BID PO 06/02/25 22:00 UNV Patient Own Medication 30 mg QPM PO 06/02/25 18:00 UNV Hydromorphone HCl 0.5 mg Q4HPRN PRN IV 06/02/25 15:45 06/05/25 08:48 0.5 MG Folic Acid 1 mg DAILY PO 06/03/25 10:00 06/05/25 09:03 1 MG Thiamine HCl 100 mg DAILY PO 06/03/25 10:00 06/05/25 09:03 100 MG Multivitamins 1 tab DAILY PO 06/03/25 10:00 06/05/25 09:06 1 TAB Lorazepam 1 mg Q2HP PRN IV 06/02/25 16:00 Furosemide 20 mg BIDD IV 06/02/25 18:00 06/05/25 06:24 20 MG Magnesium Oxide 400 mg BID PO 06/02/25 22:00 06/05/25 09:05 400 MG Temazepam 30 mg QHSP PRN PO 06/02/25 16:15 06/04/25 21:44 30 MG Alprazolam 1 mg PRN PRN PO 06/02/25 16:15 Cancel Alprazolam 1 mg Q6HP PRN PO 06/02/25 17:15 Cancel Alprazolam 0.25 mg Q4HPRN PRN PO 06/02/25 19:30 06/05/25 06:43 0.25 MG Phenylephrine HCl 80 mg/Sodium Chloride 250 ml @ 1.875 mls/ hr Q24H IV 06/03/25 12:00 06/05/25 01:06 15 MLS/HR Sodium Chloride 10 ml QSHIFT@10,22 IV 06/03/25 22:00 06/05/25 09:03 10 ML Amiodarone HCl 200 mg Q12HR PO 06/04/25 22:00 06/05/25 09:04 200 MG Digoxin 0.125 mg DAILY PO 06/05/25 10:00 UNV Digoxin 0.125 mg DAILY PO 06/05/25 10:00 06/05/25 11:23 0.125 MG Examination: GENERAL:Normal, LUNGS:Normal, CVS:Normal, NEURO:Normal laboratory and microbiology Laboratory Tests 06/05/25 04:30 06/04/25 04:40 Test 06/05/25 04:30 Range/Units Serum Glucose 91 74-106 mg/dL Problem List/Assessment/Plan Problem List/Assessment/Plan Paroxysmal atrial fibrillation with rapid ventricular rate (Stage IIIa) s/p HEATH with direct current cardioversion, now NSR Acute on chronic decompensated HFimpEF, NYHA Class II Nonischemic cardiomyopathy Non-sustained ventricular tachycardia (3 beats) History of direct current cardioversion Recent dietary indiscretions/alcohol use Obstructive sleep apnea on CPAP HS Morbid obesity Plan/Recommendation (Dr. Laws): Case discussed with Dr. Laws. The patient underwent a successful transesophageal echocardiogram with direct current cardioversion on 06/04/25. He remains in normal sinus rhythm at time of assessment. Continue antiarrhythmic agent with oral amiodarone. Patient remains on vasopressor therapy with Mike- Synephrine for BP support. We will recommend to titrate patient off of vasopressor as tolerated. [id number] VASc score: 1 point, HAS-BLED: 1 point. Continue with NOAC therapy, Eliquis. Consider rate control with beta-breanna once patient off of vasopressor therapy and with stable BP. Replete electrolytes as necessary, K>4 and Mg>2. Monitor ECG changes closely. Notify of any acute hemodynamic changes, worsening hypotension, or worsening tachyarrhythmia. Rest of plan per clinical course. Thank you for allowing us to participate in this patient's care. Please call if you have any questions or concerns. Critical care time: 35 min. This medical document was created using an electronic medical record system with voice recognition software and computerized dictation system. Although this document has been carefully reviewed, there might still be some phonetic and typographical errors. Occasional wrong-word or ``sound-alike substitutions may have occurred due to the inherent limitations of voice recognition software. These areas are purely typographical due to imperfections of the software programs and do not reflect any compromise in the patient's medical care. Please read the chart carefully and recognize, using context, where these substitutions have occurred. Plan discussed with: Patient, Other (Bedside RN) Dietary Evaluation Review Comments: 1) Monitor VitB12 level 2) Continue liberalizing to 2gm Na diet 3) Ensure Enlive 240ml BID if PO intake <50% 4) Refer to Home Economist for weight management on discharge 5) Monitor PO intake, lab values, I/O Expected Outcomes/Goals: To meet >75% estimated needs Fu 3-5 days Date of Service: Jun 05, 2025 Billing Provider: JOHNNY BAXTER Common Visit Codes: [id number] CARE 30-74 MIN JOHNNY BAXTER Jun 05, 2025 13:15
[2025-06-05] MEDS: LORazepam 2MG/ML-1ML VIAL IV PRN (19:51)
[2025-06-06] VITALS (13 sets, daily range): BP systolic 83–109; BP diastolic 50–75; PULSE 75–94; RESP 12–16; TEMP 98–98.1; O2SAT 90–97
[2025-06-06] MEDS ORDERED: DIGO0.12 PO (06:59)
[2025-06-06] MEDS ORDERED: AMIO200T33 PO (06:59)
--- NOTE | 2025-06-06 09:12 | DVHDS2 ---
Discharge Summary Date of Admission Jun 02, 2025 at 15:27 Date of Discharge: Jun 06, 2025 Admitting Diagnosis AFib with RVR Labs/Diagnostic Data: Laboratory Results Test 06/05/25 04:30 06/04/25 04:40 06/03/25 12:19 06/02/25 20:59 Sodium Level 142 mmol/L (136-145) Potassium Level 4.2 mmol/L (3.5-5.1) Chloride Level 104 mmol/L (98-107) Carbon Dioxide Level 29 mmol/L (20-31) Anion Gap 9 (5-15) Blood Urea Nitrogen 16 mg/dL (9-23) Creatinine 0.87 mg/dL (0.700-1.30) Glomerular Filtration Rate Calc 103 mL/min (>90) BUN/Creatinine Ratio 18.4 (10.0-20.0) Serum Glucose 91 mg/dL (74-106) Calcium Level 9.1 mg/dL (8.7-10.4) Magnesium Level 2.4 mg/dL (1.6-2.6) Digoxin Level 0.36 ng/mL (0.8-2) White Blood Count 6.7 10^3/uL (4.4-10.8) Red Blood Count 3.44 10^6/uL (4.5-5.90) Hemoglobin 11.5 g/dL (13.5-17.5) Hematocrit 34.7 % (41.0-53.0) Mean Corpuscular Volume 100.9 fL (80.0-100.0) Mean Corpuscular Hemoglobin 33.6 pg (28.0-32.0) Mean Corpuscular Hemoglobin Concent 33.3 g/dL (32.0-36.0) Red Cell Distribution Width 15.0 % (11.8-14.3) Platelet Count 183 10^3/uL (140-450) Mean Platelet Volume 7.8 fL (6.9-10.8) Neutrophils (%) (Auto) 54.8 % (37.0-80.0) Lymphocytes (%) (Auto) 30.5 % (10.0-50.0) Monocytes (%) (Auto) 9.3 % (0.0-12.0) Eosinophils (%) (Auto) 5.1 % (0.0-7.0) Basophils (%) (Auto) 0.3 % (0.0-2.0) Neutrophils # (Auto) 3.7 10 ^3/uL (1.6-8.6) Lymphocytes # (Auto) 2.0 10 ^3/uL (0.4-5.4) Monocytes # (Auto) 0.6 10 ^3/uL (0-1.3) Eosinophils # (Auto) 0.3 10 ^3/uL (0-0.8) Basophils # (Auto) 0 10 ^3/uL (0-0.2) Nucleated Red Blood Cells 0.1 % Total Bilirubin 1.3 mg/dL (0.2-1.0) Aspartate Amino Transferase (AST) 66 U/L (13-40) Alanine Aminotransferase (ALT) 77 U/L (7-40) Alkaline Phosphatase 106 U/L (46-116) Total Protein 6.7 g/dL (5.7-8.2) Albumin 4.3 g/dL (3.2-4.8) Urine Color Yellow (Yellow) Urine Clarity Clear (Clear) Urine pH 5.5 (5.0-9.0) Urine Specific [place] 1.017 (1.001-1.035) Urine Protein Negative (Negative) Urine Ketones Negative (Negative) Urine Blood Negative /uL (Negative) Urine Nitrite Negative (Negative) Urine Bilirubin Negative (Negative) Urine Urobilinogen Normal mg/dL (Negative) Urine Leukocyte Esterase Negative /uL (Negative) Urine RBC None seen /hpf (0 - 3) Urine Microscopic WBC /HPF (0-3) Urine Squamous Epithelial Cells None seen /hpf (<5) Urine Bacteria None seen /hpf (None Seen) Urine Glucose 4+ mg/dL (Normal) B-Type Natriuretic Peptide 355.01 pg/mL (0-100) Test 06/02/25 16:58 06/02/25 10:19 Plasma/Serum Blood Alcohol < 3.0 mg/dL (<10) Prothrombin Time 12.3 sec (9.3-11.8) Prothrombin Time INR 1.18 (0.9-1.15) Activated Partial Thromboplast Time 28.2 SEC (24.5-34.5) Triglycerides Level 127 mg/dL (< 150) Cholesterol Level 187 mg/dL (< 200) LDL Cholesterol 128 mg/dL (< 100) HDL Cholesterol 49 mg/dL (40-59) Thyroid Stimulating Hormone (TSH) 1.71 uIU/mL (0.55-4.78) Other Laboratory Tests 06/05/25 04:30 06/04/25 04:40 Brief Hx & Hospital Course: History of Present Illness Jose Antonio Braden is a 55-year-old male with past medial history of CHF, atrial fibrillation, obstructive sleep apnea, and alcohol abuse, who came to the ER due to variceal bleeding from his scrotum. Patient was at work when he went to the bathroom and noticed he was having heaving variceal bleeding from his scrotum. He was taken to ER where the ER physician stitched the variceal. Patient was also found to be in atrial fibrillation with RVR with a rate of 180-190. IV metoprolol was given and patient was started on IV amiodarone. His heart rate decreased to 140's, cardiology consult was placed. Course of hospitalization: Patient was started on amiodarone drip, as well as IV digoxin with some improvement with AFib with RVR. Cardiology consultation was obtained. Patient was initially held with respect to his anticoagulation given his variceal bleeding from his scrotum. Patient was then taken to the cardiac catheterization lab, at which time he underwent transesophageal echocardiogram which ruled out any signs of thrombus, followed by cardioversion. Patient was cardioverted a total of 4 times, with the patient converting to sinus rhythm. Patient is currently on oral amiodarone, oral digoxin, with patient's heart rate remaining controlled, noted sinus rhythm with occasional PACs. Patient was also in shock secondary to elevated heart rate, for which he was placed on phenylephrine drip. Vasopressor therapy was weaned off yesterday. Patient was also started on BiPAP given his obstructive sleep apnea. Patient was restarted on Eliquis. Patient will be discharged home, instructed to follow up with his PCP in one week, his desulfurizer hand in 1-2 weeks. Rate control will be continued with amiodarone 200 mg p.o. b.i.d. as well as digoxin 0.125 mg p.o. daily. Remainder of medication reconciliation was performed with the patient. At this time given he has normal ejection fraction on echocardiogram, patient will have Entresto held due to his hypotension. Patient was also instructed to not lift anything greater than 5 lb or perform any activities that will increase variceal pressure. Patient will be continued on Lasix and potassium supplementation as an outpatient. Patient is agreeable with discharge plan. All questions answered. Physical examination General: Alert and Oriented x3. No acute distress. Well-nourished. Eyes: EOMI. Anicteric. HENT: Moist mucous membranes. Lungs: Clear to auscultation bilaterally. No accessory muscle use. Cardiovascular: Regular rate and rhythm. No murmur. No JVD. Abdomen: Soft, non-tender and non-distended. No palpable masses. Extremities: No edema. Non-tender. Skin: No rashes or lesions. Warm. Neurologic: No focal neurological deficits. CN II-XII grossly intact, but not individually tested. Psychiatric: Cooperative. Appropriate mood and affect. Total time spent with patient discussing and formulating plan of care: 35 minutes. This medical document was created using an electronic medical record system with [employer] dictation system. Although this document has been carefully reviewed, there may still be some phonetic and typographical errors. These areas are purely typographical due to imperfections of the software programs, and do not reflect any compromise in the patient's medical care. Consults/Reason for consult Cardiology: AFib with RVR Operations or Procedures HEATH, cardioversion Condition at Discharge: Good Final Diagnosis/Problems List Atrial fibrillation with rapid ventricular rate Cardiogenic shock Secondary diagnosis: -cardiogenic shock -acute on chronic diastolic heart failure -alcohol liver disease -obstructive sleep apnea -scrotal bleeding -pernicious drop in hematocrit Discharge Disposition: Home Discharge Instruct/Medications Diet: Consistent carbohydrate, Cardiac 2g Na,low cholest Activity: No Restrictions, As Tolerated Follow Up/Referral: Follow up with PCP, Dr. Holder one week Follow up with Dr. Laws in 2-3 weeks Medications: Continue all home meds per medication reconciliation. Stop Entresto Digoxin 0.125 mg p.o. daily Amiodarone 200 mg p.o. twice a day Scheduled Alprazolam (Alprazolam), 1 MG PO PRN, (Reported) Amiodarone Hcl (Amiodarone Hcl), 200 MG PO BID Apixaban Base (Eliquis), 5 MG PO BID Digoxin (Digoxin), 125 MCG PO DAILY Empagliflozin (Jardiance), 10 MG PO DAILY Furosemide (Lasix), 40 MG PO BID Magnesium Oxide (Mag-Ox), 400 MG PO BID Potassium Chloride (Klor-Con M20), 20 MEQ PO BID Sacubitril-Valsartan (Entresto 24-26 mg), 1 TAB PO BID Temazepam (Restoril), 30 MG PO QPM, (Reported) 36 Discharge Statement: "Patient was advised to return to the ER or call 911 if any headaches, dizziness, shortness of breath, chest pain, abdominal pain, bleeding, fevers, or worsening of medical condition. Patient was counseled about treatment plan, medications, possible side effects, patientverbalized understanding. All questions were answered to the best of my ability. This discharge took greater then 30 minutes in planning, reviewing documentation, counseling the patient, and discussing with other team members." ASSESSMENT ASSESSMENT Assessment Atrial fibrillation with rapid ventricular rate Cardiogenic shock Date of Service: Jun 06, 2025 Billing Provider: CHITRA VAZ NP Common Visit Codes: 46596-WBQ/OBS DISCH DAY >30min CHITRA VAZ NP Jun 06, 2025 09:12
--- NOTE | 2025-06-06 09:33 | DVHPN2 ---
Consult Progress Note Subjective Patient reports: Feels better Review of Systems: CVS:Normal (Denies CP, Palpitations, SOB) Objective vital signs Vital Sign Date Time Temp Pulse Resp B/P (MAP) Pulse Ox O2 Delivery O2 Flow Rate FiO2 06/06/25 08:57 98.0 06/06/25 08:22 90 06/06/25 08:00 15 95 Nasal Cannula* 4 36 06/06/25 07:00 Total Intake and Output 06/05/25 06/05/25 06/06/25 15:00 23:00 07:00 Intake Total 375.45 ml 351.87 ml 480 ml Output Total 775 ml 700 ml 1950 ml Balance -399.55 ml -348.13 ml -1470 ml medications Current Medications Medications Dose Ordered Sig/Olesya Route Start Time Stop Time Status Last Admin Dose Admin Acetaminophen/ Hydrocodone Bitart 1 tab Q4HP PRN PO 06/02/25 15:30 06/05/25 06:28 1 TAB Ondansetron HCl 4 mg Q4HP PRN IV 06/02/25 15:30 Docusate Sodium 100 mg BIDPRN PRN PO 06/02/25 15:30 Acetaminophen 650 mg Q6HP PRN PO 06/02/25 15:30 Nitroglycerin 0.4 mg Q5MINP PRN SL 06/02/25 15:30 Morphine Sulfate 2 mg Q30M PRN IV 06/02/25 15:30 Apixaban 5 mg BID PO 06/02/25 22:00 06/06/25 08:21 5 MG Empaglifozin 10 mg DAILY PO 06/03/25 10:00 06/06/25 08:21 10 MG Patient Own Medication 1 mg PRN PO 06/02/25 15:45 UNV Patient Own Medication 400 mg BID PO 06/02/25 22:00 UNV Patient Own Medication 30 mg QPM PO 06/02/25 18:00 UNV Hydromorphone HCl 0.5 mg Q4HPRN PRN IV 06/02/25 15:45 06/05/25 23:59 0.5 MG Folic Acid 1 mg DAILY PO 06/03/25 10:00 06/06/25 08:21 1 MG Thiamine HCl 100 mg DAILY PO 06/03/25 10:00 06/06/25 08:21 100 MG Multivitamins 1 tab DAILY PO 06/03/25 10:00 06/06/25 08:21 1 TAB Lorazepam 1 mg Q2HP PRN IV 06/02/25 16:00 06/06/25 04:07 1 MG Furosemide 20 mg BIDD IV 06/02/25 18:00 06/06/25 06:35 20 MG Magnesium Oxide 400 mg BID PO 06/02/25 22:00 06/06/25 08:22 400 MG Temazepam 30 mg QHSP PRN PO 06/02/25 16:15 06/05/25 21:19 30 MG Alprazolam 1 mg PRN PRN PO 06/02/25 16:15 Cancel Alprazolam 1 mg Q6HP PRN PO 06/02/25 17:15 Cancel Alprazolam 0.25 mg Q4HPRN PRN PO 06/02/25 19:30 06/06/25 06:35 0.25 MG Phenylephrine HCl 80 mg/Sodium Chloride 250 ml @ 1.875 mls/ hr Q24H IV 06/03/25 12:00 06/05/25 01:06 15 MLS/HR Sodium Chloride 10 ml QSHIFT@10,22 IV 06/03/25 22:00 06/06/25 08:22 10 ML Amiodarone HCl 200 mg Q12HR PO 06/04/25 22:00 06/06/25 08:20 200 MG Digoxin 0.125 mg DAILY PO 06/05/25 10:00 UNV Digoxin 0.125 mg DAILY PO 06/05/25 10:00 06/06/25 08:22 0.125 MG Examination: CVS:Normal (Tele consistent with NSR at 88 bpm.) laboratory and microbiology Laboratory Tests 06/05/25 04:30 06/04/25 04:40 Test 06/05/25 04:30 Range/Units Serum Glucose 91 74-106 mg/dL Problem List/Assessment/Plan Problem List/Assessment/Plan Problem List/Assessment/Plan Paroxysmal atrial fibrillation with rapid ventricular rate (Stage IIIa) s/p HEATH with direct current cardioversion, now NSR Acute on chronic decompensated HFimpEF, NYHA Class II Nonischemic cardiomyopathy Non-sustained ventricular tachycardia (3 beats) History of direct current cardioversion Recent dietary indiscretions/alcohol use Obstructive sleep apnea on CPAP HS Morbid obesity Plan/Recommendation (Dr. Laws): Case discussed with Dr. Laws. S/P HEATH Cardioversion 06/04/25. Continues to be normal sinus rhythm on tele. Continue antiarrhythmic agent with oral amiodarone and digoxin. Off Mike drip. [id number] VASc score: 1 point, HAS-BLED: 1 point. Continue with NOAC therapy, Eliquis. Consider rate control with beta- breanna once patient off of vasopressor therapy and with stable BP plan for outpatient follow up. Replete electrolytes as necessary, K>4 and Mg>2. Monitor ECG changes closely. Notify of any acute hemodynamic changes, worsening hypotension, or worsening tachyarrhythmia. Rest of plan per clinical course. Thank you for allowing us to participate in this patient's care. Please call if you have any questions or concerns. Stable for DC from cardiology standpoint. Patient to follow up with Dr. Laws in 1-2 weeks. Critical care time: 35 min. This medical document was created using an electronic medical record system with voice recognition software and computerized dictation system. Although this document has been carefully reviewed, there might still be some phonetic and typographical errors. Occasional wrong-word or ``sound-alike substitutions may have occurred due to the inherent limitations of voice recognition software. These areas are purely typographical due to imperfections of the software programs and do not reflect any compromise in the patient's medical care. Please read the chart carefully and recognize, using context, where these substitutions have occurred. Plan discussed with: Patient Dietary Evaluation Review Comments: 1) Monitor VitB12 level 2) Continue liberalizing to 2gm Na diet 3) Ensure Enlive 240ml BID if PO intake <50% 4) Refer to [facility] for weight management on discharge 5) Monitor PO intake, lab values, I/O Expected Outcomes/Goals: To meet >75% estimated needs Fu 3-5 days Date of Service: Jun 06, 2025 Billing Provider: DILSHAD ACOSTA Common Visit Codes: [id number] INP/OBS CARE(HIGH) DILSHAD ACOSTA Jun 06, 2025 09:33
== END 2025-06-06 11:14 | disposition home or self-care (01) | DRG 308 ==
LOC: ER 09:41 → OVERFLOW 15:27 → DOU IN ICU 17:50 → ICU CENTRL 06-03 13:18
PROVIDERS: ADMIT Student in an Organized Health Care Education/Training Program; ATTEND Student in an Organized Health Care Education/Training Program
PROC: 5A09357 Assistance with Respiratory Ventilation, Less than 24 Consecutive Hours, Continuous Positive Airway Pressure (ICD-10-PCS; 2025-06-02)
PROC: 5A09357 Assistance with Respiratory Ventilation, Less than 24 Consecutive Hours, Continuous Positive Airway Pressure (ICD-10-PCS; 2025-06-03)
PROC: 02HV33Z Insertion of Infusion Device into Superior Vena Cava, Percutaneous Approach (ICD-10-PCS; 2025-06-03)
PROC: B548ZZA Ultrasonography of Superior Vena Cava, Guidance (ICD-10-PCS; 2025-06-03)
PROC: B24BZZ4 Ultrasonography of Heart with Aorta, Transesophageal (ICD-10-PCS; 2025-06-04)
PROC: 5A09357 Assistance with Respiratory Ventilation, Less than 24 Consecutive Hours, Continuous Positive Airway Pressure (ICD-10-PCS; 2025-06-04)
PROC: 5A2204Z Restoration of Cardiac Rhythm, Single (ICD-10-PCS; principal; 2025-06-04 08:31)
PROC: 5A09357 Assistance with Respiratory Ventilation, Less than 24 Consecutive Hours, Continuous Positive Airway Pressure (ICD-10-PCS; 2025-06-05)
DX: I48.0 Paroxysmal atrial fibrillation (principal); I50.33 Acute on chronic diastolic (congestive) heart failure; R57.0 Cardiogenic shock; R71.0 Precipitous drop in hematocrit; F10.139 Alcohol abuse with withdrawal, unspecified; Z68.42 Body mass index [BMI] 45.0-49.9, adult; I47.20 Ventricular tachycardia, unspecified; K70.9 Alcoholic liver disease, unspecified; E66.01 Morbid (severe) obesity due to excess calories; I08.1 Rheumatic disorders of both mitral and tricuspid valves; I42.8 Other cardiomyopathies; G47.33 Obstructive sleep apnea (adult) (pediatric); N50.82 Scrotal pain; G47.00 Insomnia, unspecified; F41.9 Anxiety disorder, unspecified; Z96.652 Presence of left artificial knee joint; Z79.01 Long term (current) use of anticoagulants; Z87.891 Personal history of nicotine dependence; Z82.0 Family history of epilepsy and other diseases of the nervous system; Z80.1 Family history of malignant neoplasm of trachea, bronchus and lung; Z79.899 Other long term (current) drug therapy; Z90.49 Acquired absence of other specified parts of digestive tract
CPT/HCPCS: 36415; 36569; 36600; 71045; 76705; 76870; 80048; 80053; 80061; 80162; 80320; 81001; 82805; 83735; 83880; 84443; 85018; 85025; 85610; 85730; 86850; 86900; 86901; 87081; 93005; 93306; 93312; 94660; G0378; J2003; J2250; J2405; J2704